=== PATIENT | female | born 1965 | race Caucasian/White ===

== ENCOUNTER 2018-03-04 18:31 | Inpatient (IN) | payer MEDICAID, OTHER ==
[~2018-03-04] VITALS: Ht 162.6 cm; Wt 54.7 kg
[~2018-03-04 18:31] MED LIST: etomidate 2mg/ml inj. ONE; rocuronium 10mg/ml inj IV ONE
[2018-03-04] MEDS ORDERED: ipratropium/albuterol 3ml nebule NEB ONE (18:40)
[2018-03-04] MEDS ORDERED: normal saline 1000ML IV soln IVB ONE (18:40)
[2018-03-04] MEDS ORDERED: methylPREDNISolone sod succ 125mg/2ml vial IV ONE (18:40)
[2018-03-04] MEDS ORDERED: levoFLOXACIN-Levaquin 750MG/D5 150 ML IV ONE (18:55)
[2018-03-04] MEDS ORDERED: normal saline 1000ML IV soln IV ONE (18:55)
[2018-03-04 18:57] LABS: BASOPHILS % (AUTO) 0.3 % (0-1); EOSINOPHILS # (AUTO) 0.3 X10'3 (0-0.9); EOSINOPHILS % (AUTO) 2.3 % (0-6); HEMATOCRIT 43.9 % (35.0-45.0); HEMOGLOBIN 14.2 g/dl (12.0-16.0); LYMPHOCYTES % (AUTO) 13.6 % (21-51); MEAN CORPUSCULAR HEMOGLOBIN 31.5 PG (27.0-31.0); MEAN CORPUSCULAR HGB CONC 32.4 % (33.0-36.5); MEAN CORPUSCULAR VOLUME 97.2 FL (78-98); MEAN PLATELET VOLUME 8.2 FL (7.4-10.4); MONOCYTES % (AUTO) 6.6 % (2-12); NEUTROPHILS # (AUTO) 11.5 X10'3 (1.8-7.7); NEUTROPHILS % (AUTO) 77.2 % (42-75); PLATELET COUNT 392 X10'3 (140-440); RED BLOOD COUNT 4.52 X10'6 (4.20-5.60); RED CELL DISTRIBUTION WIDTH 14.4 % (11.5-14.5); WHITE BLOOD COUNT 14.8 X10'3 (4.5-11.0)
[2018-03-04 19:13] LABS: PARTIAL THROMBOPLASTIN TIME 23 SECONDS (22-32); PROTHROMBIN TIME 9.9 SECONDS (9.0-12.0)
[2018-03-04 19:14] LABS: ALANINE AMINOTRANSFERASE 61 U/L (12-78); ALBUMIN 3.9 G/DL (3.4-5.0); ALBUMIN/GLOBULIN RATIO 1.1 (1.1-1.5); ALKALINE PHOSPHATASE 100 IU/L (46-116); ANION GAP 14 (8-16); ASPARTATE AMINO TRANSFERASE 35 U/L (10-37); BILIRUBIN,TOTAL 0.4 MG/DL (0.1-1.0); BLOOD UREA NITROGEN 34 MG/DL (7-18); BUN/CREATININE RATIO 33.3 (6.6-38.0); CALCIUM 8.5 MG/DL (8.5-10.1); CHLORIDE 104 MMOL/L (99-107); CREATININE 1.02 MG/DL (0.40-0.90); GLUCOSE 257 MG/DL (70-104); POTASSIUM 3.9 MMOL/L (3.5-5.1); SODIUM 142 MMOL/L (135-145); TOTAL CARBON DIOXIDE 24.5 MMOL/L (24-32); TOTAL PROTEIN 7.6 G/DL (6.4-8.2); eGFR 57 ML/MIN
[2018-03-04 19:16] LABS: ABG BASE EXCESS -5.9 mmol/L (-2.0-3.0); ABG HCO3 22.2 mmol/L (22.0-26.0); ABG OXYGEN SATURATION 96.2 % (95-98); ABG PCO2 (T) 52.5 mmHg (32.0-45.0); ABG PH (T) 7.241 (7.350-7.450); ABG PO2 (T) 100.6 mmHg (83-108); ALLEN'S TEST Positive; FCOHb 0.7 % (0.5-1.5); FLOW 8 L/min; FO2Hb 95.5 % (94-100); PATIENT TEMPERATURE 36.3; TOTAL HEMOGLOBIN 14.4 G/dl (12.0-16.0)
[2018-03-04 19:21] LABS: MAGNESIUM 2.2 MG/DL (1.5-2.4)
[2018-03-04] MEDS ORDERED: iohexol 350MG/ML 100ml bottle IV ONE (19:21)
[2018-03-04] MEDS ORDERED: FENTANYL-0.9 % NACL/PF 100 ML IV PRN (19:45)
[2018-03-04] MEDS: midazolam 100mg in NS 100ml 100 ML IV PRN ×2 (20:01→20:52)
[2018-03-04] MEDS ORDERED: midazolam 100mg in NS 100ml 100 ML IV PRN (20:15)
[2018-03-04 20:50] LABS: CLARITY,URINE SLIGHTLY CLOUDY (Clear); COLOR,URINE YELLOW (Yellow); GLUCOSE, URINE NEGATIVE (Neg); KETONES,URINE NEGATIVE (Neg); LEUKOCYTE ESTERASE ,URINE NEGATIVE (Neg); NITRITES, URINE NEGATIVE (Neg); OCCULT BLOOD,URINE NEGATIVE (Neg); PROTEIN,URINE 30 mg/dl (Neg); UROBILINOGEN,URINE 0.2 E.U/dL (0.2-1.0)
[2018-03-04 20:58] LABS: URINE AMPHETAMINE SCREEN POSITIVE (Neg); URINE BARBITUATE SCREEN NEGATIVE (Neg); URINE BENZODIAZEPINES SCREEN NEGATIVE (Neg); URINE CANNABINOID SCREEN POSITIVE (Neg); URINE COCAINE SCREEN NEGATIVE (Neg); URINE METHADONE SCREEN NEGATIVE (Neg); URINE OPIATE SCREEN POSITIVE (Neg); URINE PHENCYCLIDINE SCREEN NEGATIVE (Neg)
[2018-03-04 20:59] LABS: UA COLLECTION TYPE FOLEY CATH
[2018-03-04 21:01] LABS: ABG HCO3 21.9 mmol/L (22.0-26.0); ABG OXYGEN SATURATION 94.3 % (95-98); ABG PCO2 (T) 64.3 mmHg (32.0-45.0); ABG PH (T) 7.151 (7.350-7.450); ABG PO2 (T) 92.4 mmHg (83-108); ALLEN'S TEST Positive; FCOHb 1.1 % (0.5-1.5); FMetHb 0.2 % (0.3-1.12); FO2Hb 93.1 % (94-100); MINUTE VOLUME 11 L/min; PEEP 5 cm H2O; RESPIRATORY RATE 20 b/min; RESPIRATORY RATE (OBSERVED) 20 b/min; TIDAL VOLUME 450 mL; TOTAL HEMOGLOBIN 14.9 G/dl (12.0-16.0)
[2018-03-04 21:08] LABS: COARSE GRANULAR CAST 0-3 /LPF (NEGATIVE); FINE GRANULAR CAST 0-3 /LPF (NEGATIVE); SQUAMOUS EPITHELIAL CELL,UR MODERATE /LPF (FEW)
[2018-03-04] MEDS: normal saline 1000ml 1,000 ML IV SCH (21:08)
[2018-03-04 21:09] LABS: AMORPHOUS URATES 2+; BACTERIA,URINE 1+ /HPF (Neg); RBC,URINE 0-2 /HPF (0-2)
[2018-03-04] MEDS ORDERED: acetaminophen 325mg tablet PO PRN ×2 (21:10)
[2018-03-04] MEDS ORDERED: dextrose ORAL solution 15 GM/59 ML bottle PO PRN ×2 (21:10)
[2018-03-04] MEDS ORDERED: labetalol 20mg/4ml (5mg/ml) syringe IV ONE (21:10)
[2018-03-04] MEDS ORDERED: labetalol 20mg/4ml (5mg/ml) syringe IV PRN (21:10)
[2018-03-04] MEDS ORDERED: acetaminophen 650mg rectal suppository RC PRN (21:10)
[2018-03-04] MEDS ORDERED: ondansetron/PF 4mg/2ml inj IV PRN (21:10)
[2018-03-04] MEDS ORDERED: insulin Lispro (HumaLOG) vial - multi-dose SQ SCH (21:10)
[2018-03-04] MEDS ORDERED: potassium Cl 40MEQ/NS 500ml 500 ML IV PRN ×2 (21:10)
[2018-03-04] MEDS ORDERED: CefTRIAXone/D5W-Rocephin 1gm 50 ML IV ONE (21:10)
[2018-03-04] MEDS ORDERED: MESSAGE TO PHARMACY PO ONE (21:10)
[2018-03-04] MEDS ORDERED: dextrose 50%-water 50ml dispensing syringe IV PRN ×2 (21:10)
[2018-03-04] MEDS ORDERED: glucagon, human recombinant 1mg kit SUBCUT PRN (21:10)
[2018-03-04] MEDS ORDERED: UNABLE TO OBTAIN (21:23)
[2018-03-04] MEDS: pantoprazole 40 MG vial IV SCH (21:57)
[2018-03-04 23:00] VITALS: BP 119/71
[2018-03-04 23:00] LABS: ABG BASE EXCESS -4.9 mmol/L (-2.0-3.0); ABG HCO3 22.4 mmol/L (22.0-26.0); ABG OXYGEN SATURATION 94.6 % (95-98); ABG PCO2 (T) 49.4 mmHg (32.0-45.0); ABG PH (T) 7.272 (7.350-7.450); ABG PO2 (T) 80.2 mmHg (83-108); ALLEN'S TEST Positive; FCOHb 0.9 % (0.5-1.5); FMetHb 0.1 % (0.3-1.12); FO2Hb 93.7 % (94-100); MINUTE VOLUME 12 L/min; PATIENT TEMPERATURE 36.6; PEEP 5 cm H2O; RESPIRATORY RATE 24 b/min; RESPIRATORY RATE (OBSERVED) 24 b/min; TIDAL VOLUME 450 mL; TOTAL HEMOGLOBIN 13.8 G/dl (12.0-16.0)
[2018-03-04] MEDS: ipratropium/albuterol 3ml nebule NEB SCH (23:34)
[2018-03-05] VITALS (24 sets, daily range): BP systolic 96–140; BP diastolic 53–81
[2018-03-05 01:29] LABS: PARTIAL THROMBOPLASTIN TIME 22 SECONDS (22-32); PROTHROMBIN TIME 10.3 SECONDS (9.0-12.0)
[2018-03-05 01:31] LABS: ALANINE AMINOTRANSFERASE 51 U/L (12-78); ALKALINE PHOSPHATASE 77 IU/L (46-116); ANION GAP 14 (8-16); ASPARTATE AMINO TRANSFERASE 25 U/L (10-37); BILIRUBIN,TOTAL 0.3 MG/DL (0.1-1.0); BLOOD UREA NITROGEN 32 MG/DL (7-18); BUN/CREATININE RATIO 47.1 (6.6-38.0); CALCIUM 7.7 MG/DL (8.5-10.1); CHLORIDE 108 MMOL/L (99-107); CREATININE 0.68 MG/DL (0.40-0.90); GLUCOSE 117 MG/DL (70-104); SODIUM 143 MMOL/L (135-145); TOTAL CARBON DIOXIDE 21.5 MMOL/L (24-32); TOTAL PROTEIN 6.1 G/DL (6.4-8.2); eGFR > 90 ML/MIN
[2018-03-05 01:34] LABS: MAGNESIUM 1.9 MG/DL (1.5-2.4); PHOSPHORUS 3.2 MG/DL (2.3-4.5)
[2018-03-05 02:16] LABS: BASOPHILS % (AUTO) 0.3 % (0-1); EOSINOPHILS % (AUTO) 0 % (0-6); HEMATOCRIT 40.6 % (35.0-45.0); HEMOGLOBIN 13.3 g/dl (12.0-16.0); LYMPHOCYTES # (AUTO) 0.3 X10'3 (1.1-4.8); LYMPHOCYTES % (AUTO) 2.6 % (21-51); MEAN CORPUSCULAR HEMOGLOBIN 31.6 PG (27.0-31.0); MEAN CORPUSCULAR HGB CONC 32.7 % (33.0-36.5); MEAN CORPUSCULAR VOLUME 96.5 FL (78-98); MEAN PLATELET VOLUME 9.1 FL (7.4-10.4); MONOCYTES # (AUTO) 0.1 X10'3 (0-0.9); MONOCYTES % (AUTO) 1.4 % (2-12); NEUTROPHILS # (AUTO) 10.5 X10'3 (1.8-7.7); NEUTROPHILS % (AUTO) 95.7 % (42-75); PLATELET COUNT 265 X10'3 (140-440); RED BLOOD COUNT 4.21 X10'6 (4.20-5.60); RED CELL DISTRIBUTION WIDTH 14.4 % (11.5-14.5)
[2018-03-05] MEDS: methylPREDNISolone sod succ/PF 40mg inj. IV SCH ×4 (02:38→20:49)
[2018-03-05] MEDS: ipratropium/albuterol 3ml nebule NEB SCH ×6 (03:34→22:50)
[2018-03-05 04:15] LABS: ABG BASE EXCESS -3.9 mmol/L (-2.0-3.0); ABG HCO3 21.2 mmol/L (22.0-26.0); ABG OXYGEN SATURATION 95.8 % (95-98); ABG PO2 (T) 81.6 mmHg (83-108); ALLEN'S TEST Positive; FCOHb 0.4 % (0.5-1.5); FMetHb 0.1 % (0.3-1.12); FO2Hb 95.3 % (94-100); MINUTE VOLUME 12 L/min; PEEP 5 cm H2O; RESPIRATORY RATE 24 b/min; RESPIRATORY RATE (OBSERVED) 24 b/min; TIDAL VOLUME 450 mL; TOTAL HEMOGLOBIN 13.7 G/dl (12.0-16.0)
[2018-03-05] MEDS ORDERED: levoFLOXACIN-Levaquin 750MG/D5 150 ML IV SCH (08:00)
[2018-03-05] MEDS: K, MAG and/or Phos replacement - Verify level? MC SCH (08:00)
[2018-03-05] MEDS: docusate sodium 100mg/10ml UD cup PO SCH ×2 (08:41→20:49)
[2018-03-05] MEDS: nicotine 14mg patch - 24hr TD SCH (08:46)
[2018-03-05] MEDS: pantoprazole 40 MG vial IV SCH (08:46)
[2018-03-05] MEDS: heparin, porcine 5000 units/ml vial SQ SCH ×2 (09:15→20:50)
[2018-03-05] MEDS: midazolam 100mg in NS 100ml 100 ML IV PRN (09:50)
[2018-03-05] MEDS: normal saline 1000ml 1,000 ML IV SCH (10:28)
[2018-03-05] MEDS ORDERED: NITR100C11 PO (11:58)
[2018-03-05] MEDS ORDERED: LISI-604 PO (11:58)
[2018-03-05] MEDS ORDERED: AMLO5TAB PO (11:58)
[2018-03-05] MEDS ORDERED: CARV-50 PO (11:58)
[2018-03-05] MEDS ORDERED: ASPI-611 PO (11:59)
[2018-03-05] MEDS: AZITHROMYCIN 500 MG in NS 250ml IV.SOLN IV SCH (12:52)
[2018-03-05] MEDS: FENTANYL-0.9 % NACL/PF 100 ML IV PRN ×2 (13:01→21:22)
[2018-03-05] MEDS ORDERED: insulin regular, human vial - multi-dose SQ SCH (14:51)
[2018-03-05] MEDS: CefTRIAXone/D5W-Rocephin 1gm 50 ML IV SCH (20:45)
[2018-03-05] MEDS: lactobacillus rhamnosus 10,000 MMU CELLS/CAPSULE PO SCH (20:49)
[2018-03-05] MEDS: insulin glargine (Lantus) pen - multi-dose SQ SCH (21:00)
[2018-03-06] VITALS (24 sets, daily range): BP systolic 59–167; BP diastolic 49–97
[2018-03-06] MEDS: methylPREDNISolone sod succ/PF 40mg inj. IV SCH ×4 (02:28→19:45)
[2018-03-06] MEDS: mineral oil/petrolatum ophthal oint EACHEYE SCH ×4 (02:28→19:45)
[2018-03-06] MEDS: normal saline 1000ml 1,000 ML IV SCH (02:48)
[2018-03-06] MEDS: ipratropium/albuterol 3ml nebule NEB SCH ×6 (03:18→23:16)
[2018-03-06 03:21] LABS: ABG BASE EXCESS -2.4 mmol/L (-2.0-3.0); ABG HCO3 22.5 mmol/L (22.0-26.0); ABG OXYGEN SATURATION 95.5 % (95-98); ABG PCO2 (T) 39.3 mmHg (32.0-45.0); ABG PH (T) 7.376 (7.350-7.450); ABG PO2 (T) 80.1 mmHg (83-108); ALLEN'S TEST Positive; FCOHb 0.2 % (0.5-1.5); FMetHb 0.2 % (0.3-1.12); FO2Hb 95.1 % (94-100); MINUTE VOLUME 10 L/min; PATIENT TEMPERATURE 36.8; PEEP 5 cm H2O; RESPIRATORY RATE 24 b/min; RESPIRATORY RATE (OBSERVED) 24 b/min; TIDAL VOLUME 375 mL; TOTAL HEMOGLOBIN 12.1 G/dl (12.0-16.0)
[2018-03-06] MEDS: midazolam 100mg in NS 100ml 100 ML IV PRN (03:24)
[2018-03-06 05:00] LABS: BASOPHILS % (AUTO) 0 % (0-1); EOSINOPHILS # (AUTO) 0.1 X10'3 (0-0.9); EOSINOPHILS % (AUTO) 1.3 % (0-6); HEMATOCRIT 35.4 % (35.0-45.0); HEMOGLOBIN 11.4 g/dl (12.0-16.0); LYMPHOCYTES # (AUTO) 0.3 X10'3 (1.1-4.8); LYMPHOCYTES % (AUTO) 2.6 % (21-51); MEAN CORPUSCULAR HEMOGLOBIN 31.3 PG (27.0-31.0); MEAN CORPUSCULAR HGB CONC 32.3 % (33.0-36.5); MEAN CORPUSCULAR VOLUME 96.9 FL (78-98); MEAN PLATELET VOLUME 8.9 FL (7.4-10.4); MONOCYTES # (AUTO) 0.2 X10'3 (0-0.9); MONOCYTES % (AUTO) 2.2 % (2-12); NEUTROPHILS # (AUTO) 10.5 X10'3 (1.8-7.7); NEUTROPHILS % (AUTO) 93.9 % (42-75); PLATELET COUNT 256 X10'3 (140-440); RED BLOOD COUNT 3.65 X10'6 (4.20-5.60); RED CELL DISTRIBUTION WIDTH 14.6 % (11.5-14.5); WHITE BLOOD COUNT 11.2 X10'3 (4.5-11.0)
[2018-03-06 05:14] LABS: PARTIAL THROMBOPLASTIN TIME 24 SECONDS (22-32); PROTHROMBIN TIME 10.2 SECONDS (9.0-12.0)
[2018-03-06 05:15] LABS: ALANINE AMINOTRANSFERASE 39 U/L (12-78); ALBUMIN 2.6 G/DL (3.4-5.0); ALBUMIN/GLOBULIN RATIO 0.9 (1.1-1.5); ALKALINE PHOSPHATASE 57 IU/L (46-116); ANION GAP 8 (8-16); ASPARTATE AMINO TRANSFERASE 13 U/L (10-37); BILIRUBIN,TOTAL 0.3 MG/DL (0.1-1.0); BLOOD UREA NITROGEN 28 MG/DL (7-18); BUN/CREATININE RATIO 38.4 (6.6-38.0); CALCIUM 8.4 MG/DL (8.5-10.1); CHLORIDE 109 MMOL/L (99-107); CREATININE 0.73 MG/DL (0.40-0.90); GLUCOSE 168 MG/DL (70-104); PHOSPHORUS 2.6 MG/DL (2.3-4.5); POTASSIUM 4.2 MMOL/L (3.5-5.1); SODIUM 142 MMOL/L (135-145); TOTAL CARBON DIOXIDE 24.9 MMOL/L (24-32); TOTAL PROTEIN 5.4 G/DL (6.4-8.2); eGFR 84 ML/MIN
[2018-03-06] MEDS: FENTANYL-0.9 % NACL/PF 100 ML IV PRN ×3 (05:49→23:37)
[2018-03-06] MEDS: CefTRIAXone/D5W-Rocephin 1gm 50 ML IV SCH (07:13)
[2018-03-06] MEDS: pantoprazole 40 MG vial IV SCH (07:14)
[2018-03-06] MEDS ORDERED: azithromycin/NS 500mg/250ml 250 ML IV SCH (08:00)
[2018-03-06] MEDS: K, MAG and/or Phos replacement - Verify level? MC SCH (08:00)
[2018-03-06] MEDS: docusate sodium 100mg/10ml UD cup PO SCH ×2 (08:19→19:44)
[2018-03-06] MEDS: nicotine 14mg patch - 24hr TD SCH (08:19)
[2018-03-06] MEDS: lactobacillus rhamnosus 10,000 MMU CELLS/CAPSULE PO SCH ×2 (08:19→19:44)
[2018-03-06] MEDS: AZITHROMYCIN 500 MG in NS 250ml IV.SOLN IV SCH (08:19)
[2018-03-06] MEDS: heparin, porcine 5000 units/ml vial SQ SCH ×2 (08:20→19:45)
[2018-03-06] MEDS: furosemide 40mg/4ml inj IV SCH ×2 (09:46→19:45)
[2018-03-06] MEDS: dexmedetomidin/NS 400mcg/100ml 100 ML IV SCH ×2 (09:54→20:35)
[2018-03-06] MEDS: carVEDilol 12.5mg tablet PO SCH (13:13)
[2018-03-06] MEDS ORDERED: LORazepam 2 mg/ml vial IV PRN (14:45)
[2018-03-06] MEDS ORDERED: diphenhydrAMINE 50 mg/ml inj IV PRN (19:15)
[2018-03-06] MEDS: insulin glargine (Lantus) pen - multi-dose SQ SCH (21:00)
[2018-03-06] MEDS ORDERED: lactulose 20gm/30ml cup PO PRN (21:10)
[2018-03-07] VITALS (22 sets, daily range): BP systolic 122–178; BP diastolic 55–99
[2018-03-07] MEDS: mineral oil/petrolatum ophthal oint EACHEYE SCH ×5 (02:00→23:03)
[2018-03-07] MEDS: methylPREDNISolone sod succ/PF 40mg inj. IV SCH ×2 (02:00→08:40)
[2018-03-07] MEDS: ipratropium/albuterol 3ml nebule NEB SCH ×6 (02:56→23:44)
[2018-03-07 03:40] LABS: ABG BASE EXCESS 2.8 mmol/L (-2.0-3.0); ABG HCO3 28.1 mmol/L (22.0-26.0); ABG OXYGEN SATURATION 94.6 % (95-98); ABG PCO2 (T) 46.3 mmHg (32.0-45.0); ABG PH (T) 7.402 (7.350-7.450); ABG PO2 (T) 76.4 mmHg (83-108); ALLEN'S TEST Positive; FCOHb 0.2 % (0.5-1.5); FMetHb 0.1 % (0.3-1.12); FO2Hb 94.3 % (94-100); MINUTE VOLUME 8 L/min; PATIENT TEMPERATURE 37.2; PEEP 5 cm H2O; RESPIRATORY RATE 18 b/min; RESPIRATORY RATE (OBSERVED) 18 b/min; TIDAL VOLUME 375 mL; TOTAL HEMOGLOBIN 12.8 G/dl (12.0-16.0)
[2018-03-07 06:05] LABS: BASOPHILS % (AUTO) 0.2 % (0-1); EOSINOPHILS % (AUTO) 0.3 % (0-6); HEMATOCRIT 37.8 % (35.0-45.0); HEMOGLOBIN 12.2 g/dl (12.0-16.0); LYMPHOCYTES # (AUTO) 0.2 X10'3 (1.1-4.8); LYMPHOCYTES % (AUTO) 1.9 % (21-51); MEAN CORPUSCULAR HEMOGLOBIN 31.4 PG (27.0-31.0); MEAN CORPUSCULAR HGB CONC 32.3 % (33.0-36.5); MEAN CORPUSCULAR VOLUME 97.2 FL (78-98); MEAN PLATELET VOLUME 9.5 FL (7.4-10.4); MONOCYTES # (AUTO) 0.3 X10'3 (0-0.9); MONOCYTES % (AUTO) 2.5 % (2-12); NEUTROPHILS # (AUTO) 12.1 X10'3 (1.8-7.7); NEUTROPHILS % (AUTO) 95.1 % (42-75); PLATELET COUNT 258 X10'3 (140-440); RED BLOOD COUNT 3.89 X10'6 (4.20-5.60); RED CELL DISTRIBUTION WIDTH 14.5 % (11.5-14.5); WHITE BLOOD COUNT 12.7 X10'3 (4.5-11.0)
[2018-03-07 06:12] LABS: ALANINE AMINOTRANSFERASE 37 U/L (12-78); ALKALINE PHOSPHATASE 54 IU/L (46-116); ANION GAP 6 (8-16); ASPARTATE AMINO TRANSFERASE 9 U/L (10-37); BILIRUBIN,TOTAL 0.2 MG/DL (0.1-1.0); BLOOD UREA NITROGEN 37 MG/DL (7-18); BUN/CREATININE RATIO 42.5 (6.6-38.0); CALCIUM 8.7 MG/DL (8.5-10.1); CHLORIDE 108 MMOL/L (99-107); CREATININE 0.87 MG/DL (0.40-0.90); GLUCOSE 193 MG/DL (70-104); MAGNESIUM 2.3 MG/DL (1.5-2.4); PHOSPHORUS 3.8 MG/DL (2.3-4.5); POTASSIUM 3.9 MMOL/L (3.5-5.1); SODIUM 145 MMOL/L (135-145); TOTAL CARBON DIOXIDE 30.7 MMOL/L (24-32); eGFR 68 ML/MIN
[2018-03-07 06:32] LABS: PARTIAL THROMBOPLASTIN TIME 23 SECONDS (22-32); PROTHROMBIN TIME 9.9 SECONDS (9.0-12.0)
[2018-03-07] MEDS ORDERED: racepinephrine 11.25mg/0.5ml nebule ONE (07:31)
[2018-03-07] MEDS ORDERED: racepinephrine 11.25mg/0.5ml nebule IH PRN (07:35)
[2018-03-07] MEDS: K, MAG and/or Phos replacement - Verify level? MC SCH (08:00)
[2018-03-07] MEDS: furosemide 40mg/4ml inj IV SCH (08:40)
[2018-03-07] MEDS: lactobacillus rhamnosus 10,000 MMU CELLS/CAPSULE PO SCH ×2 (08:40→19:20)
[2018-03-07] MEDS: docusate sodium 100mg/10ml UD cup PO SCH ×2 (08:40→19:20)
[2018-03-07] MEDS: pantoprazole 40 MG vial IV SCH (08:40)
[2018-03-07] MEDS: AZITHROMYCIN 500 MG in NS 250ml IV.SOLN IV SCH (08:41)
[2018-03-07] MEDS: CefTRIAXone/D5W-Rocephin 1gm 50 ML IV SCH (08:42)
[2018-03-07] MEDS: nicotine 14mg patch - 24hr TD SCH ×2 (08:42→09:00)
[2018-03-07] MEDS: amLODIPine 5mg tablet PO SCH (08:44)
[2018-03-07] MEDS: carVEDilol 12.5mg tablet PO SCH (08:44)
[2018-03-07] MEDS: lisinopril 5mg tablet PO SCH (08:44)
[2018-03-07] MEDS: heparin, porcine 5000 units/ml vial SQ SCH ×2 (08:45→19:20)
[2018-03-07] MEDS: insulin glargine (Lantus) pen - multi-dose SQ SCH (18:42)
[2018-03-08] VITALS (14 sets, daily range): BP systolic 133–186; BP diastolic 68–96
[2018-03-08] MEDS: normal saline 1000ml 1,000 ML IV SCH (02:48)
[2018-03-08] MEDS: ipratropium/albuterol 3ml nebule NEB SCH ×3 (03:53→11:00)
[2018-03-08] MEDS: hydrALAZINE 20mg/ml inj. IV PRN (04:56)
[2018-03-08 07:06] LABS: BASOPHILS % (AUTO) 0.2 % (0-1); EOSINOPHILS % (AUTO) 0.2 % (0-6); HEMATOCRIT 37.6 % (35.0-45.0); HEMOGLOBIN 12.3 g/dl (12.0-16.0); LYMPHOCYTES # (AUTO) 0.9 X10'3 (1.1-4.8); LYMPHOCYTES % (AUTO) 8.8 % (21-51); MEAN CORPUSCULAR HEMOGLOBIN 31.6 PG (27.0-31.0); MEAN CORPUSCULAR HGB CONC 32.6 % (33.0-36.5); MEAN CORPUSCULAR VOLUME 96.8 FL (78-98); MEAN PLATELET VOLUME 9.9 FL (7.4-10.4); MONOCYTES # (AUTO) 0.7 X10'3 (0-0.9); MONOCYTES % (AUTO) 6.8 % (2-12); NEUTROPHILS # (AUTO) 8.8 X10'3 (1.8-7.7); PLATELET COUNT 259 X10'3 (140-440); RED BLOOD COUNT 3.89 X10'6 (4.20-5.60); RED CELL DISTRIBUTION WIDTH 14.2 % (11.5-14.5); WHITE BLOOD COUNT 10.4 X10'3 (4.5-11.0)
[2018-03-08 07:08] LABS: PARTIAL THROMBOPLASTIN TIME 24 SECONDS (22-32)
[2018-03-08 07:31] LABS: ALANINE AMINOTRANSFERASE 38 U/L (12-78); ALKALINE PHOSPHATASE 54 IU/L (46-116); ANION GAP 9 (8-16); ASPARTATE AMINO TRANSFERASE 15 U/L (10-37); BILIRUBIN,TOTAL 0.4 MG/DL (0.1-1.0); BLOOD UREA NITROGEN 37 MG/DL (7-18); BUN/CREATININE RATIO 41.6 (6.6-38.0); CALCIUM 8.8 MG/DL (8.5-10.1); CHLORIDE 105 MMOL/L (99-107); CREATININE 0.89 MG/DL (0.40-0.90); GLUCOSE 98 MG/DL (70-104); MAGNESIUM 2.3 MG/DL (1.5-2.4); PHOSPHORUS 3.3 MG/DL (2.3-4.5); POTASSIUM 3.5 MMOL/L (3.5-5.1); PREALBUMIN 34.9 MG/DL (19-36); SODIUM 145 MMOL/L (135-145); TOTAL CARBON DIOXIDE 31.4 MMOL/L (24-32); eGFR 67 ML/MIN
[2018-03-08] MEDS: furosemide 20MG tablet PO SCH (07:46)
[2018-03-08] MEDS: carVEDilol 12.5mg tablet PO SCH (07:46)
[2018-03-08] MEDS: prednisone 10mg tablet PO SCH (07:47)
[2018-03-08] MEDS: amLODIPine 5mg tablet PO SCH (07:47)
[2018-03-08] MEDS: pantoprazole 40 MG vial IV SCH (07:48)
[2018-03-08] MEDS: docusate sodium 100mg/10ml UD cup PO SCH ×2 (07:48→19:26)
[2018-03-08] MEDS: lactobacillus rhamnosus 10,000 MMU CELLS/CAPSULE PO SCH ×2 (07:48→19:26)
[2018-03-08] MEDS: lisinopril 5mg tablet PO SCH (07:48)
[2018-03-08] MEDS: heparin, porcine 5000 units/ml vial SQ SCH ×2 (07:52→19:26)
[2018-03-08] MEDS: CefTRIAXone/D5W-Rocephin 1gm 50 ML IV SCH (07:56)
[2018-03-08] MEDS: K, MAG and/or Phos replacement - Verify level? MC SCH (08:00)
[2018-03-08] MEDS: mineral oil/petrolatum ophthal oint EACHEYE SCH (08:00)
[2018-03-08] MEDS: AZITHROMYCIN 500 MG in NS 250ml IV.SOLN IV SCH (08:45)
[2018-03-08] MEDS: insulin glargine (Lantus) pen - multi-dose SQ SCH (21:00)
[2018-03-09] VITALS: BP 162/78
[2018-03-09 05:32] LABS: BASOPHILS % (AUTO) 0.3 % (0-1); EOSINOPHILS # (AUTO) 0.1 X10'3 (0-0.9); EOSINOPHILS % (AUTO) 1.2 % (0-6); HEMATOCRIT 43.4 % (35.0-45.0); HEMOGLOBIN 14.4 g/dl (12.0-16.0); LYMPHOCYTES # (AUTO) 1.1 X10'3 (1.1-4.8); LYMPHOCYTES % (AUTO) 11.4 % (21-51); MEAN CORPUSCULAR HEMOGLOBIN 31.6 PG (27.0-31.0); MEAN CORPUSCULAR HGB CONC 33.1 % (33.0-36.5); MEAN CORPUSCULAR VOLUME 95.4 FL (78-98); MEAN PLATELET VOLUME 9.8 FL (7.4-10.4); MONOCYTES # (AUTO) 0.7 X10'3 (0-0.9); MONOCYTES % (AUTO) 7.3 % (2-12); NEUTROPHILS # (AUTO) 7.9 X10'3 (1.8-7.7); NEUTROPHILS % (AUTO) 79.8 % (42-75); PLATELET COUNT 271 X10'3 (140-440); RED BLOOD COUNT 4.55 X10'6 (4.20-5.60); RED CELL DISTRIBUTION WIDTH 14.2 % (11.5-14.5); WHITE BLOOD COUNT 9.9 X10'3 (4.5-11.0)
[2018-03-09 05:50] LABS: PARTIAL THROMBOPLASTIN TIME 26 SECONDS (22-32)
[2018-03-09 05:51] LABS: ALANINE AMINOTRANSFERASE 38 U/L (12-78); ALBUMIN 3.2 G/DL (3.4-5.0); ALBUMIN/GLOBULIN RATIO 0.9 (1.1-1.5); ALKALINE PHOSPHATASE 66 IU/L (46-116); ANION GAP 7 (8-16); ASPARTATE AMINO TRANSFERASE 12 U/L (10-37); BILIRUBIN,TOTAL 0.5 MG/DL (0.1-1.0); BLOOD UREA NITROGEN 25 MG/DL (7-18); BUN/CREATININE RATIO 30.1 (6.6-38.0); CALCIUM 8.9 MG/DL (8.5-10.1); CHLORIDE 101 MMOL/L (99-107); CREATININE 0.83 MG/DL (0.40-0.90); GLUCOSE 113 MG/DL (70-104); MAGNESIUM 2.1 MG/DL (1.5-2.4); PHOSPHORUS 2.8 MG/DL (2.3-4.5); SODIUM 140 MMOL/L (135-145); TOTAL CARBON DIOXIDE 32.2 MMOL/L (24-32); TOTAL PROTEIN 6.7 G/DL (6.4-8.2); eGFR 72 ML/MIN
[2018-03-09 07:00] VITALS: BP 170/100
[2018-03-09] MEDS: K, MAG and/or Phos replacement - Verify level? MC SCH (08:00)
[2018-03-09] MEDS: lactobacillus rhamnosus 10,000 MMU CELLS/CAPSULE PO SCH ×2 (08:21→21:51)
[2018-03-09] MEDS: pantoprazole 40mg Tablet.DR PO SCH (08:21)
[2018-03-09] MEDS: furosemide 20MG tablet PO SCH (08:21)
[2018-03-09] MEDS: azithromycin 250mg tablet PO SCH (08:22)
[2018-03-09] MEDS: carVEDilol 12.5mg tablet PO SCH (08:23)
[2018-03-09] MEDS: amLODIPine 5mg tablet PO SCH (08:23)
[2018-03-09] MEDS: prednisone 10mg tablet PO SCH (08:23)
[2018-03-09] MEDS: lisinopril 5mg tablet PO SCH (08:24)
[2018-03-09] MEDS: docusate sodium 100mg/10ml UD cup PO SCH ×2 (08:25→20:00)
[2018-03-09] MEDS: heparin, porcine 5000 units/ml vial SQ SCH ×2 (08:25→21:54)
[2018-03-09] MEDS: nicotine 14mg patch - 24hr TD SCH (08:26)
[2018-03-09] MEDS: CefTRIAXone/D5W-Rocephin 1gm 50 ML IV SCH (08:27)
[2018-03-09 11:00] VITALS: BP 119/73
[2018-03-09] MEDS ORDERED: magnesium 4gm in 100ml NS 100 ML IV PRN (12:40)
[2018-03-09] MEDS ORDERED: magnesium 2GM in 50ml NS 50 ML IV PRN (12:40)
[2018-03-09] MEDS ORDERED: magnesium Cl slow-release 64mg tablet PO PRN (12:40)
[2018-03-09] MEDS ORDERED: potassium Cl 20 mEq SR tablet PO PRN (12:40)
[2018-03-09] MEDS ORDERED: potassium Cl 40MEQ/NS 500ml 500 ML IV PRN ×2 (12:40)
[2018-03-09] MEDS: potassium Cl 20 mEq SR tablet PO PRN ×2 (13:04→17:10)
[2018-03-09 19:00] VITALS: BP 131/74
[2018-03-09] MEDS: insulin glargine (Lantus) pen - multi-dose SQ SCH (21:00)
[2018-03-09] MEDS: hydrALAZINE 20mg/ml inj. IV PRN (23:13)
[2018-03-09 23:55] VITALS: BP 181/99
[2018-03-09 23:58] VITALS: BP 149/74
[2018-03-10] MEDS: potassium Cl 20 mEq SR tablet PO PRN
[2018-03-10] MEDS: normal saline 1000ml 1,000 ML IV SCH (02:48)
[2018-03-10 05:30] LABS: ALANINE AMINOTRANSFERASE 29 U/L (12-78); ALBUMIN 3.1 G/DL (3.4-5.0); ALBUMIN/GLOBULIN RATIO 0.9 (1.1-1.5); ALKALINE PHOSPHATASE 65 IU/L (46-116); ANION GAP 7 (8-16); ASPARTATE AMINO TRANSFERASE 8 U/L (10-37); BILIRUBIN,TOTAL 0.2 MG/DL (0.1-1.0); BLOOD UREA NITROGEN 35 MG/DL (7-18); BUN/CREATININE RATIO 47.9 (6.6-38.0); CALCIUM 8.7 MG/DL (8.5-10.1); CHLORIDE 104 MMOL/L (99-107); CREATININE 0.73 MG/DL (0.40-0.90); GLUCOSE 136 MG/DL (70-104); MAGNESIUM 2.2 MG/DL (1.5-2.4); PHOSPHORUS 3.2 MG/DL (2.3-4.5); POTASSIUM 5.2 MMOL/L (3.5-5.1); SODIUM 139 MMOL/L (135-145); TOTAL CARBON DIOXIDE 27.6 MMOL/L (24-32); TOTAL PROTEIN 6.5 G/DL (6.4-8.2); eGFR 84 ML/MIN
[2018-03-10 05:42] LABS: BASOPHILS % (AUTO) 0.2 % (0-1); EOSINOPHILS # (AUTO) 0.2 X10'3 (0-0.9); EOSINOPHILS % (AUTO) 1.2 % (0-6); HEMATOCRIT 46.8 % (35.0-45.0); HEMOGLOBIN 15.6 g/dl (12.0-16.0); LYMPHOCYTES # (AUTO) 0.9 X10'3 (1.1-4.8); LYMPHOCYTES % (AUTO) 7.3 % (21-51); MEAN CORPUSCULAR HEMOGLOBIN 31.7 PG (27.0-31.0); MEAN CORPUSCULAR HGB CONC 33.5 % (33.0-36.5); MEAN CORPUSCULAR VOLUME 94.6 FL (78-98); MEAN PLATELET VOLUME 9.9 FL (7.4-10.4); NEUTROPHILS # (AUTO) 10.4 X10'3 (1.8-7.7); NEUTROPHILS % (AUTO) 83.3 % (42-75); PLATELET COUNT 277 X10'3 (140-440); RED BLOOD COUNT 4.94 X10'6 (4.20-5.60); RED CELL DISTRIBUTION WIDTH 13.6 % (11.5-14.5); WHITE BLOOD COUNT 12.5 X10'3 (4.5-11.0)
[2018-03-10 05:46] LABS: INR 0.9 INR; PARTIAL THROMBOPLASTIN TIME 24 SECONDS (22-32); PROTHROMBIN TIME 9.6 SECONDS (9.0-12.0)
[2018-03-10 07:11] VITALS: BP 169/116
[2018-03-10] MEDS: K, MAG and/or Phos replacement - Verify level? MC SCH (07:18)
[2018-03-10] MEDS: amLODIPine 5mg tablet PO SCH (07:31)
[2018-03-10] MEDS: carVEDilol 12.5mg tablet PO SCH (07:31)
[2018-03-10] MEDS: lisinopril 5mg tablet PO SCH (07:32)
[2018-03-10] MEDS: pantoprazole 40mg Tablet.DR PO SCH (07:32)
[2018-03-10] MEDS: lactobacillus rhamnosus 10,000 MMU CELLS/CAPSULE PO SCH (07:33)
[2018-03-10] MEDS: azithromycin 250mg tablet PO SCH (07:33)
[2018-03-10] MEDS: nicotine 14mg patch - 24hr TD SCH (07:34)
[2018-03-10] MEDS: heparin, porcine 5000 units/ml vial SQ SCH (07:34)
[2018-03-10] MEDS: docusate sodium 100mg/10ml UD cup PO SCH (07:35)
[2018-03-10 07:47] VITALS: BP 139/87
[2018-03-10] MEDS ORDERED: predniSONE 20 mg tablet PO SCH (08:30)
[2018-03-10] MEDS ORDERED: LACT1CAP26 PO (09:22)
[2018-03-10] MEDS ORDERED: AZI25OT PO (09:22)
[2018-03-10] MEDS ORDERED: PANT40TA4 PO (09:22)
[2018-03-10] MEDS ORDERED: NICO-631 TD (09:22)
[2018-03-10] MEDS ORDERED: SIMV20TA5 PO (09:24)
[2018-03-10 11:28] VITALS: BP 142/80
[2018-03-10] MEDS ORDERED: furosemide 40mg tablet PO SCH (20:00)
== END 2018-03-10 12:52 | disposition home or self-care (01) | DRG 720 ==
LOC: ER 18:31 → ED HOLD 21:08 → ICU 2S 23:11 → SUR 3N 03-08 07:18
PROVIDERS: ADMIT Internal Medicine Critical Care Medicine; ATTEND Internal Medicine Critical Care Medicine
PROC: 0BH18EZ Insertion of Endotracheal Airway into Trachea, Via Natural or Artificial Opening Endoscopic (ICD-10-PCS; principal; 2018-03-04)
PROC: 5A1945Z Respiratory Ventilation, 24-96 Consecutive Hours (ICD-10-PCS; 2018-03-04)
PROC: 5A09357 Assistance with Respiratory Ventilation, Less than 24 Consecutive Hours, Continuous Positive Airway Pressure (ICD-10-PCS; 2018-03-04)
PROC: 0D9670Z Drainage of Stomach with Drainage Device, Via Natural or Artificial Opening (ICD-10-PCS; 2018-03-04)
PROC: B3201ZZ Computerized Tomography (CT Scan) of Thoracic Aorta using Low Osmolar Contrast (ICD-10-PCS; 2018-03-04)
PROC: B32S1ZZ Computerized Tomography (CT Scan) of Right Pulmonary Artery using Low Osmolar Contrast (ICD-10-PCS; 2018-03-04)
PROC: B32T1ZZ Computerized Tomography (CT Scan) of Left Pulmonary Artery using Low Osmolar Contrast (ICD-10-PCS; 2018-03-04)
DX: A41.9 Sepsis, unspecified organism (principal); J96.21 Acute and chronic respiratory failure with hypoxia; J18.1 Lobar pneumonia, unspecified organism; J44.0 Chronic obstructive pulmonary disease with (acute) lower respiratory infection; E87.6 Hypokalemia; F17.210 Nicotine dependence, cigarettes, uncomplicated; F12.90 Cannabis use, unspecified, uncomplicated; F15.10 Other stimulant abuse, uncomplicated; I10 Essential (primary) hypertension; J96.22 Acute and chronic respiratory failure with hypercapnia; Z87.440 Personal history of urinary (tract) infections
CPT/HCPCS: 36415; 36600; 71045; 71275; 80053; 80305; 81001; 82803; 82948; 83036; 83605; 83735; 83880; 84100; 84134; 84145; 84484; 85018; 85025; 85610; 85730; 87040; 87070; 87088; 93306; 94002; 94003; 94640; 94660; 94760; 96361; 96365; 96375; 97116; 97162; 97530; 99291; C9113; G0378; J0360; J0456; J0696; J1200; J1644; J1815; J1940; J1956; J2060; J2250; J2405; J2920; J2930; J3490; J7030; J7512; Q9967

== ENCOUNTER 2018-08-08 12:16 | Emergency (ER) | payer MEDICAID ==
[~2018-08-08] VITALS: Ht 162.6 cm; Wt 62.8 kg
[~2018-08-08 12:16] MED LIST changes: +AMLO5TAB PO; +ASPI-611 PO; +AZI25OT PO; +BUTA-281 PO; +CARV-50 PO; +LACT1CAP26 PO; +LISI-604 PO; +NICO-631 TD; +PANT40TA4 PO; -etomidate 2mg/ml inj. ONE; -rocuronium 10mg/ml inj IV ONE
[2018-08-08 12:53] LABS: BASOPHILS # (AUTO) 0.2 X10'3 (0-0.2); BASOPHILS % (AUTO) 1.6 % (0-1); EOSINOPHILS # (AUTO) 0.1 X10'3 (0-0.9); EOSINOPHILS % (AUTO) 0.8 % (0-6); HEMATOCRIT 42.4 % (35.0-45.0); LYMPHOCYTES # (AUTO) 0.7 X10'3 (1.1-4.8); LYMPHOCYTES % (AUTO) 6.3 % (21-51); MEAN CORPUSCULAR HEMOGLOBIN 31.5 PG (27.0-31.0); MEAN CORPUSCULAR VOLUME 95.6 FL (78-98); MEAN PLATELET VOLUME 8.4 FL (7.4-10.4); MONOCYTES # (AUTO) 0.7 X10'3 (0-0.9); NEUTROPHILS # (AUTO) 9.2 X10'3 (1.8-7.7); NEUTROPHILS % (AUTO) 85.3 % (42-75); PLATELET COUNT 254 X10'3 (140-440); RED BLOOD COUNT 4.43 X10'6 (4.20-5.60); RED CELL DISTRIBUTION WIDTH 14.5 % (11.5-14.5); WHITE BLOOD COUNT 10.8 X10'3 (4.5-11.0)
[2018-08-08] MEDS ORDERED: diphenhydrAMINE 25mg capsule PO ONE (13:00)
[2018-08-08] MEDS ORDERED: albuterol 2.5 MG/3 ML nebule CONTNEB PRN ×2 (13:00→15:05)
[2018-08-08] MEDS ORDERED: predniSONE 20 mg tablet PO ONE (13:00)
[2018-08-08 13:07] LABS: ALANINE AMINOTRANSFERASE 49 U/L (12-78); ALBUMIN 2.9 G/DL (3.4-5.0); ALBUMIN/GLOBULIN RATIO 0.8 (1.1-1.5); ALKALINE PHOSPHATASE 86 IU/L (46-116); ANION GAP 8 (8-16); ASPARTATE AMINO TRANSFERASE 21 U/L (10-37); BILIRUBIN,TOTAL 0.5 MG/DL (0.1-1.0); BLOOD UREA NITROGEN 11 MG/DL (7-18); BUN/CREATININE RATIO 13.9 (6.6-38.0); CALCIUM 8.8 MG/DL (8.5-10.1); CHLORIDE 101 MMOL/L (99-107); CREATININE 0.79 MG/DL (0.40-0.90); GLUCOSE 183 MG/DL (70-104); PARTIAL THROMBOPLASTIN TIME 26 SECONDS (22-32); POTASSIUM 3.7 MMOL/L (3.5-5.1); SODIUM 139 MMOL/L (135-145); TOTAL CARBON DIOXIDE 30.2 MMOL/L (24-32); TOTAL PROTEIN 6.5 G/DL (6.4-8.2); eGFR 76 ML/MIN
[2018-08-08] MEDS ORDERED: LORA-512 PO (14:47)
[2018-08-08] MEDS ORDERED: DIPH25CA83 PO (14:47)
[2018-08-08] MEDS ORDERED: PRED20TA PO (14:47)
[2018-08-08] MEDS ORDERED: ALBU6.7H INH (14:47)
[2018-08-08 17:40] VITALS: BP 172/111
== END 2018-08-08 17:43 | disposition home or self-care (01) ==
LOC: ER 12:17
DX: J44.1 Chronic obstructive pulmonary disease with (acute) exacerbation (principal); I10 Essential (primary) hypertension; F17.200 Nicotine dependence, unspecified, uncomplicated; F15.90 Other stimulant use, unspecified, uncomplicated; Z79.82 Long term (current) use of aspirin; Z79.899 Other long term (current) drug therapy; Z59.0 Homelessness
CPT/HCPCS: 36415; 71045; 80053; 84484; 85025; 85610; 85730; 93005; 94644; 94645; 94760; 99285; J7512; Q0163; 94640

== ENCOUNTER 2018-11-02 03:50 | Inpatient (IN) | payer MEDICAID ==
[~2018-11-02] VITALS: Ht 165.1 cm; Wt 59.7 kg
[2018-11-02] VITALS (16 sets, daily range): BP systolic 107–132; BP diastolic 59–78
[~2018-11-02 03:50] MED LIST changes: +ALBU8.5H8 INH; -AMLO5TAB PO; +BECL10.62 INH; -BUTA-281 PO; +CALC-829 PO; +CYCL-145 PO; +FAMO-128 PO; +FURO20TA4 PO; -LACT1CAP26 PO; +LORA10TA45 PO; -NICO-631 TD; -PANT40TA4 PO; +POTA8TAB8 PO
[2018-11-02] MEDS ORDERED: propofol 1000mg/100ml bottle 100 ML IV ONE (03:55)
[2018-11-02] MEDS ORDERED: diazepam inj 5 MG/ML inj. IV ONE (03:55)
[2018-11-02] MEDS ORDERED: rocuronium 10mg/ml inj IV STA (03:56)
[2018-11-02] MEDS ORDERED: etomidate 2mg/ml inj. IV ONE (04:00)
[2018-11-02] MEDS: propofol 1000mg/100ml bottle 100 ML IV PRN ×3 (04:07→21:03)
[2018-11-02] MEDS ORDERED: dexamethasone sod phosphate 10mg/ml inj IV STA ×2 (04:07→04:38)
[2018-11-02] MEDS ORDERED: midazolam 100mg in NS 100ml 100 ML IV ONE ×2 (04:20→05:05)
--- NOTE | 2018-11-02 04:26 | NUR ---
PROPOFOL AND NS INFUSIONS SWITCHED TO CENTRAL LINE AFTER POSITIVE PLACEMENT BY DR Quiñonez WITH BUBBLE STUDY AT BEDSIDE US
--- NOTE | 2018-11-02 04:36 | NUR ---
INCREASED PROPOFOL TO 10MCG/KG/MIN.
[2018-11-02] MEDS ORDERED: levoFLOXACIN-Levaquin 750MG/D5 150 ML IV ONE (04:40)
[2018-11-02] MEDS ORDERED: CefTRIAXone 2gm/D5W 50ml 50 ML IV ONE (04:40)
[2018-11-02] MEDS ORDERED: normal saline 1000ML IV soln IV ONE (04:40)
[2018-11-02] MEDS ORDERED: normal saline 1000ML IV soln IVB ONE ×2 (04:40→04:45)
[2018-11-02] MEDS ORDERED: heparin 25,000 UNIT/250ml bag 250 ML IV SCH (04:53)
[2018-11-02 04:55] LABS: CLARITY,URINE CLEAR (Clear); COLOR,URINE YELLOW (Yellow); GLUCOSE, URINE 250 mg/dl (Neg); KETONES,URINE NEGATIVE (Neg); LEUKOCYTE ESTERASE ,URINE NEGATIVE (Neg); NITRITES, URINE NEGATIVE (Neg); OCCULT BLOOD,URINE SMALL (Neg); PROTEIN,URINE 100 mg/dl (Neg); UROBILINOGEN,URINE 0.2 E.U/dL (0.2-1.0)
[2018-11-02] MEDS ORDERED: heparin 10,000 units/1 ML INJ IV PRN (04:55)
[2018-11-02] MEDS ORDERED: heparin 10,000 units/1 ML INJ IV ONE ×3 (04:55→05:00)
[2018-11-02 05:01] LABS: UA COLLECTION TYPE FOLEY CATH
[2018-11-02] MEDS ORDERED: iohexol 350MG/ML 100ml bottle IV ONE (05:02)
[2018-11-02 05:03] LABS: ALANINE AMINOTRANSFERASE 30 U/L (12-78); ALBUMIN 2.9 G/DL (3.4-5.0); ALKALINE PHOSPHATASE 79 IU/L (46-116); ANION GAP 11 (8-16); ASPARTATE AMINO TRANSFERASE 24 U/L (10-37); BILIRUBIN,TOTAL 0.2 MG/DL (0.1-1.0); BLOOD UREA NITROGEN 7 MG/DL (7-18); BUN/CREATININE RATIO 8.4 (6.6-38.0); CALCIUM 6.7 MG/DL (8.5-10.1); CHLORIDE 112 MMOL/L (99-107); CREATININE 0.83 MG/DL (0.40-0.90); GLUCOSE 253 MG/DL (70-104); MAGNESIUM 1.4 MG/DL (1.5-2.4); POTASSIUM 3.1 MMOL/L (3.5-5.1); SODIUM 145 MMOL/L (135-145); TOTAL CARBON DIOXIDE 22.5 MMOL/L (24-32); TOTAL PROTEIN 5.8 G/DL (6.4-8.2); eGFR 72 ML/MIN
--- NOTE | 2018-11-02 05:04 | NUR ---
PT DESATTED TO 74% ON THE VENT. I SUCTIONED PT AND TOOK HER OFF THE VENT. PAGED RT AND BAGGED PT BACK UP TO 98%. DR Quiñonez NOTIFIED. CT ORDERED
[2018-11-02 05:06] LABS: BACTERIA,URINE FEW /HPF (Neg); FINE GRANULAR CAST 0-3 /LPF (NEGATIVE); RBC,URINE 0-2 /HPF (0-2); SQUAMOUS EPITHELIAL CELL,UR MODERATE /LPF (FEW); WBC,URINE 0-4 /HPF (0-4)
[2018-11-02] MEDS ORDERED: nitroGLYCERIN-Tridil 50MG/D5W 250 ML IV ONE (05:10)
--- NOTE | 2018-11-02 05:12 | NUR ---
Per Gilbert, Lab- disregard all coag values; clots in results. Primary RN and HECTOR Martin informed. Pt currently in CT; will redraw upon return.
--- NOTE | 2018-11-02 05:35 | NUR ---
PER DR. Quiñonez, DO NOT START HEPARIN UNTIL CT RESULTS ARE BACK.
--- NOTE | 2018-11-02 05:44 | NUR ---
NITRO INCREASED TO 10MCG/MIN
[2018-11-02 05:48] LABS: ABSOLUTE RETICS # 50800 /CUMM (23000-93000); BASOPHILS # (AUTO) 0.1 X10'3 (0-0.2); BASOPHILS % (AUTO) 0.6 % (0-1); EOSINOPHILS # (AUTO) 0.1 X10'3 (0-0.9); EOSINOPHILS % (AUTO) 0.4 % (0-6); HEMATOCRIT 43.9 % (35.0-45.0); HEMOGLOBIN 14.1 g/dl (12.0-16.0); LYMPHOCYTES # (AUTO) 1.1 X10'3 (1.1-4.8); LYMPHOCYTES % (AUTO) 5.3 % (21-51); MEAN CORPUSCULAR HEMOGLOBIN 30.8 PG (27.0-31.0); MEAN CORPUSCULAR VOLUME 96.1 FL (78-98); MEAN PLATELET VOLUME 8.3 FL (7.4-10.4); MONOCYTES # (AUTO) 0.7 X10'3 (0-0.9); MONOCYTES % (AUTO) 3.5 % (2-12); NEUTROPHILS # (AUTO) 18.7 X10'3 (1.8-7.7); NEUTROPHILS % (AUTO) 90.2 % (42-75); PLATELET COUNT 265 X10'3 (140-440); RED BLOOD COUNT 4.57 X10'6 (4.20-5.60); RED CELL DISTRIBUTION WIDTH 15.6 % (11.5-14.5); RETICULOCYTE % (AUTO) 1.1 % (0.5-1.5); WHITE BLOOD COUNT 20.8 X10'3 (4.5-11.0)
[2018-11-02 05:51] LABS: ABG BASE EXCESS -11.3 mmol/L (-2.0-3.0); ABG HCO3 19.6 mmol/L (22.0-26.0); ABG OXYGEN SATURATION 89.6 % (95-98); ABG PCO2 (T) 66.3 mmHg (35.0-45.0); ABG PH (T) 7.089 (7.350-7.450); ABG PO2 (T) 75.7 mmHg (83-108); FMetHb 0.2 % (0.3-1.12); FO2Hb 87.6 % (94-100); MINUTE VOLUME 9 L/min; PEEP 5 cm H2O; RESPIRATORY RATE 16 b/min; RESPIRATORY RATE (OBSERVED) 16 b/min; TIDAL VOLUME 500 mL; TOTAL HEMOGLOBIN 15.4 G/dl (12.0-16.0)
--- NOTE | 2018-11-02 05:56 | NUR ---
AWARE OF LABS.
[2018-11-02] MEDS ORDERED: enalaprilat dihydrate 2.5mg/2ml vial IV ONE (06:00)
--- NOTE | 2018-11-02 06:02 | NUR ---
DUE TO VSS, NITRO TITRATED TO 20
--- NOTE | 2018-11-02 06:14 | NUR ---
INCREASED NITRO TO 100MCG/MIN
[2018-11-02] MEDS ORDERED: magnesium 4gm in 100ml NS 100 ML IV PRN (06:20)
[2018-11-02] MEDS ORDERED: ondansetron/PF 4mg/2ml inj IV PRN (06:20)
[2018-11-02] MEDS ORDERED: sodium phosphate inj. 30 MMOL in dextrose 5%-water 250 ML IV PRN (06:20)
[2018-11-02] MEDS ORDERED: sodium phosphate inj. 15 MMOL in dextrose 5%-water 150 ML IV PRN (06:20)
[2018-11-02] MEDS ORDERED: acetaminophen 325mg tablet PO PRN ×2 (06:20)
[2018-11-02] MEDS ORDERED: magnesium hydroxide 30ml (MOM) UD suspension PO PRN (06:20)
[2018-11-02] MEDS ORDERED: magnesium 2GM in 50ml NS 50 ML IV PRN (06:20)
[2018-11-02 06:21] LABS: URINE AMPHETAMINE SCREEN POSITIVE (Neg); URINE BARBITUATE SCREEN NEGATIVE (Neg); URINE BENZODIAZEPINES SCREEN NEGATIVE (Neg); URINE CANNABINOID SCREEN POSITIVE (Neg); URINE COCAINE SCREEN NEGATIVE (Neg); URINE METHADONE SCREEN NEGATIVE (Neg); URINE OPIATE SCREEN NEGATIVE (Neg); URINE PHENCYCLIDINE SCREEN NEGATIVE (Neg)
[2018-11-02] MEDS ORDERED: albuterol 2.5 MG/3 ML nebule NEB PRN (06:40)
[2018-11-02] MEDS: ipratropium/albuterol 3ml nebule NEB SCH ×5 (06:55→23:19)
[2018-11-02] MEDS ORDERED: TIOT4MIS2 INH (07:05)
[2018-11-02 07:08] LABS: D-DIMER 3.47 MG/L FEU (0-0.50); PARTIAL THROMBOPLASTIN TIME 27 SECONDS (22-32)
[2018-11-02 07:25] LABS: ABG BASE EXCESS -7.1 mmol/L (-2.0-3.0); ABG HCO3 22.5 mmol/L (22.0-26.0); ABG OXYGEN SATURATION 96.6 % (95-98); ABG PCO2 (T) 62.4 mmHg (35.0-45.0); ABG PH (T) 7.175 (7.350-7.450); ABG PO2 (T) 107.9 mmHg (83-108); ALLEN'S TEST Positive; FCOHb 1.2 % (0.5-1.5); FMetHb 0.3 % (0.3-1.12); FO2Hb 95.2 % (94-100); MINUTE VOLUME 11 L/min; PEEP 10 cm H2O; RESPIRATORY RATE 20 b/min; RESPIRATORY RATE (OBSERVED) 20 b/min; TIDAL VOLUME 500 mL; TOTAL HEMOGLOBIN 15.8 G/dl (12.0-16.0)
--- NOTE | 2018-11-02 07:45 | NUR ---
received into ICU, transfered to bed with 3 person assist, attached to monitor and ventilator, assessment done.
[2018-11-02] MEDS ORDERED: etomidate 2mg/ml inj. ONE (08:00)
[2018-11-02] MEDS ORDERED: heparin, porcine 5000 units/ml vial SQ SCH (08:00)
[2018-11-02] MEDS ORDERED: pantoprazole 40 MG vial IV SCH (08:00)
[2018-11-02] MEDS ORDERED: docusate sodium 100mg/10ml UD cup PO SCH (08:00)
[2018-11-02] MEDS ORDERED: sod chloride 0.9% 10ml flush syringe IV ONE (08:00)
[2018-11-02] MEDS ORDERED: rocuronium 10mg/ml inj IV ONE (08:00)
[2018-11-02] MEDS: methylPREDNISolone sod succ/PF 40mg inj. IV SCH ×3 (08:00→19:50)
--- NOTE | 2018-11-02 10:00 | NUR ---
restless with moving, and any ADL, settles easily, does not follow direction, on sedation.
[2018-11-02] MEDS ORDERED: methylPREDNISolone sod succ 125mg/2ml vial ONE (11:02)
[2018-11-02] MEDS: potassium Cl 20mEq/100mL bag 100 ML IV PRN ×3 (11:30→15:45)
--- NOTE | 2018-11-02 11:58 | NUR ---
TF Consult: Pt intubated w/ respiratory failure found down positive for meth. OGTF to start today per MD; recs below. Will monitor for TF tolerance. Rec: 1. OGTF per MD using Vital AF at 70ml/hr goal; to provide 1680ml fluid, 1361ml free water, 2016 kcals, and 126g protein. Initiate at 20ml/hr and advance 20ml Q8 to goal as tolerated. 2. water flush 100ml Q4 3. prealbumin Q /, daily wts 4. monitor for TF tolerance 5. routine bowel care 6. upon extubation advance diet per MD to heart healthy Addendum: 11/02/18 at [address] Amended: Links added.
[2018-11-02 12:48] LABS: ETHANOL < 0.010 GM/DL (0.0-0.010)
[2018-11-02] MEDS: furosemide 10 MG/1 ML 10ml inj IV SCH (12:48)
[2018-11-02 14:26] LABS: OCCULT BLOOD STOOL NEGATIVE (Neg)
[2018-11-02] MEDS: ESOMEPRAZOLE 40 MG VIAL IV SCH (14:27)
[2018-11-02 14:55] LABS: ABG BASE EXCESS -1.8 mmol/L (-2.0-3.0); ABG HCO3 22.7 mmol/L (22.0-26.0); ABG OXYGEN SATURATION 99.3 % (95-98); ABG PCO2 (T) 38.2 mmHg (35.0-45.0); ABG PH (T) 7.392 (7.350-7.450); ABG PO2 (T) 229.4 mmHg (83-108); ALLEN'S TEST Positive; FMetHb 0.3 % (0.3-1.12); MINUTE VOLUME 11 L/min; PEEP 10 cm H2O; RESPIRATORY RATE 20 b/min; RESPIRATORY RATE (OBSERVED) 20 b/min; TIDAL VOLUME 500 mL; TOTAL HEMOGLOBIN 15.2 G/dl (12.0-16.0)
[2018-11-02] MEDS ORDERED: acetaminophen 325mg tablet NG PRN ×2 (15:22)
[2018-11-02] MEDS ORDERED: magnesium hydroxide 30ml (MOM) UD suspension NG PRN (15:23)
[2018-11-02] MEDS: FENTANYL-0.9 % NACL/PF 100 ML IV PRN (16:53)
--- NOTE | 2018-11-02 18:35 | NUR ---
Patient in room CICU 2011. I have received report from Savita Marquez RN, and had the opportunity to ask questions and assume patient care.
[2018-11-02 18:53] LABS: POTASSIUM 4.3 MMOL/L (3.5-5.1)
[2018-11-02] MEDS: docusate sodium 100mg/10ml UD cup NG SCH (19:40)
--- NOTE | 2018-11-02 20:00 | NUR ---
PT intubated and sedated, tolerating vent settings well. O2 sat >96%. PT is sedated with Propofol, Fentanyl and Versed, tolerating well. VSS. TF is running @ 20ml/hr, will increase as PT tolerates. Martinez in place draining to gravity. Bed is locked and low. Bilat soft wrist restraints in place and secure. Will continue to monitor.
--- NOTE | 2018-11-02 23:00 | NUR ---
PT resting with no s/s of distress noted at this time. VSS. Bed is locked and low. Bilat soft wrist restraints remain in place and secure. Will continue to monitor.
[2018-11-03] VITALS (24 sets, daily range): BP systolic 101–142; BP diastolic 49–77
[2018-11-03] MEDS: methylPREDNISolone sod succ 125mg/2ml vial IV SCH ×4 (02:37→20:34)
[2018-11-03 02:48] LABS: BASOPHILS % (AUTO) 0.2 % (0-1); EOSINOPHILS % (AUTO) 0 % (0-6); HEMATOCRIT 39.3 % (35.0-45.0); LYMPHOCYTES # (AUTO) 0.5 X10'3 (1.1-4.8); LYMPHOCYTES % (AUTO) 4.1 % (21-51); MEAN CORPUSCULAR HEMOGLOBIN 31.1 PG (27.0-31.0); MEAN CORPUSCULAR HGB CONC 33.2 g/dL (33.0-36.5); MEAN CORPUSCULAR VOLUME 93.6 FL (78-98); MEAN PLATELET VOLUME 8.5 FL (7.4-10.4); MONOCYTES # (AUTO) 0.2 X10'3 (0-0.9); MONOCYTES % (AUTO) 2.2 % (2-12); NEUTROPHILS # (AUTO) 10.8 X10'3 (1.8-7.7); NEUTROPHILS % (AUTO) 93.5 % (42-75); PLATELET COUNT 215 X10'3 (140-440); RED CELL DISTRIBUTION WIDTH 15.6 % (11.5-14.5); WHITE BLOOD COUNT 11.6 X10'3 (4.5-11.0)
[2018-11-03 03:04] LABS: ALANINE AMINOTRANSFERASE 29 U/L (12-78); ALBUMIN 2.7 G/DL (3.4-5.0); ALBUMIN/GLOBULIN RATIO 0.9 (1.1-1.5); ALKALINE PHOSPHATASE 68 IU/L (46-116); ANION GAP 10 (8-16); ASPARTATE AMINO TRANSFERASE 11 U/L (10-37); BILIRUBIN,TOTAL 0.3 MG/DL (0.1-1.0); BLOOD UREA NITROGEN 19 MG/DL (7-18); BUN/CREATININE RATIO 17.6 (6.6-38.0); CHLORIDE 109 MMOL/L (99-107); CREATININE 1.08 MG/DL (0.40-0.90); GLUCOSE 185 MG/DL (70-104); MAGNESIUM 2.2 MG/DL (1.5-2.4); PHOSPHORUS 3.3 MG/DL (2.3-4.5); POTASSIUM 4.1 MMOL/L (3.5-5.1); SODIUM 143 MMOL/L (135-145); TOTAL PROTEIN 5.6 G/DL (6.4-8.2); eGFR 53 ML/MIN
[2018-11-03 03:10] LABS: PARTIAL THROMBOPLASTIN TIME 26 SECONDS (22-32)
[2018-11-03] MEDS: ipratropium/albuterol 3ml nebule NEB SCH ×6 (03:32→23:38)
[2018-11-03 03:45] LABS: ABG BASE EXCESS -0.5 mmol/L (-2.0-3.0); ABG HCO3 24.4 mmol/L (22.0-26.0); ABG OXYGEN SATURATION 95.4 % (95-98); ABG PCO2 (T) 41.5 mmHg (35.0-45.0); ABG PH (T) 7.388 (7.350-7.450); ABG PO2 (T) 79.5 mmHg (83-108); ALLEN'S TEST Positive; FMetHb 0.2 % (0.3-1.12); FO2Hb 95.2 % (94-100); MINUTE VOLUME 11 L/min; PATIENT TEMPERATURE 37.2; PEEP 10 cm H2O; RESPIRATORY RATE 20 b/min; RESPIRATORY RATE (OBSERVED) 20 b/min; TIDAL VOLUME 500 mL; TOTAL HEMOGLOBIN 13.9 G/dl (12.0-16.0)
[2018-11-03] MEDS: CefTRIAXone 2gm/D5W 50ml 50 ML IV SCH ×2 (04:34→08:23)
[2018-11-03] MEDS ORDERED: levoFLOXACIN-Levaquin 750MG/D5 150 ML IV SCH (05:00)
[2018-11-03] MEDS: midazolam 100mg in NS 100ml 100 ML IV PRN (05:14)
[2018-11-03] MEDS: propofol 1000mg/100ml bottle 100 ML IV PRN ×2 (05:48→14:35)
[2018-11-03] MEDS ORDERED: dextrose 50%-water 50ml dispensing syringe IV PRN ×2 (06:35)
[2018-11-03] MEDS ORDERED: dextrose ORAL solution 15 GM/59 ML bottle PO PRN ×2 (06:35)
[2018-11-03] MEDS ORDERED: MESSAGE TO PHARMACY PO ONE (06:35)
[2018-11-03] MEDS ORDERED: glucagon, human recombinant 1mg kit SUBCUT PRN (06:35)
--- NOTE | 2018-11-03 06:39 | NUR ---
Problems reprioritized. Patient report given, questions answered & plan of care reviewed with Arlene AGUILAR.
[2018-11-03] MEDS: ESOMEPRAZOLE 40 MG VIAL IV SCH (08:22)
[2018-11-03] MEDS: docusate sodium 100mg/10ml UD cup NG SCH ×2 (08:22→20:34)
[2018-11-03] MEDS: furosemide 10 MG/1 ML 10ml inj IV SCH (08:23)
[2018-11-03] MEDS: enoxaparin 40mg/0.4ml syringe SQ SCH (08:23)
[2018-11-03] MEDS: mineral oil/petrolatum ophthal oint EACHEYE SCH ×3 (08:23→20:34)
[2018-11-03] MEDS: insulin regular, human vial - multi-dose SQ SCH ×3 (08:33→20:43)
[2018-11-03] MEDS ORDERED: cyclobenzaprine 10mg tablet PO PRN (12:15)
[2018-11-03] MEDS ORDERED: albuterol 2.5 MG/3 ML nebule NEB PRN (12:20)
[2018-11-03] MEDS ORDERED: ipratropium/albuterol 3ml nebule IH PRN (12:20)
[2018-11-03] MEDS: FENTANYL-0.9 % NACL/PF 100 ML IV PRN (14:35)
--- NOTE | 2018-11-03 18:27 | NUR ---
Patient in room CICU 2012. I have received report from Arlene AGUILAR, and had the opportunity to ask questions and assume patient care.
[2018-11-03] MEDS: budesonide 0.5mg/2ml UD nebule IH SCH (19:36)
--- NOTE | 2018-11-03 20:00 | NUR ---
PT intubated and sedated, tolerating vent settings well. O2 sat >96%. PT is sedated with Propofol, Fentanyl and Versed, tolerating well. VSS. TF is running @ goal rate of 70ml/hr. Martinez in place draining to gravity. Bed is locked and low. Bilat soft wrist restraints in place and secure. Will continue to monitor.
[2018-11-03] MEDS: carVEDilol 12.5mg tablet PO SCH (20:34)
[2018-11-03] MEDS: insulin glargine (Lantus) pen - multi-dose SQ SCH (20:45)
[2018-11-04] VITALS (24 sets, daily range): BP systolic 107–169; BP diastolic 51–91
[2018-11-04] MEDS: methylPREDNISolone sod succ 125mg/2ml vial IV SCH ×4 (02:11→20:40)
[2018-11-04] MEDS: mineral oil/petrolatum ophthal oint EACHEYE SCH ×4 (02:11→20:41)
--- NOTE | 2018-11-04 02:30 | NUR ---
PT continues to rest with no s/s of distress noted at this time. VSS. Bed is locked and low. Bilat soft wrist restraints remain in place and secure. Will continue to monitor.
[2018-11-04 03:21] LABS: BASOPHILS % (AUTO) 0.1 % (0-1); EOSINOPHILS % (AUTO) 0 % (0-6); HEMATOCRIT 36.4 % (35.0-45.0); HEMOGLOBIN 12.1 g/dl (12.0-16.0); LYMPHOCYTES # (AUTO) 0.4 X10'3 (1.1-4.8); LYMPHOCYTES % (AUTO) 2.8 % (21-51); MEAN CORPUSCULAR HGB CONC 33.3 g/dL (33.0-36.5); MEAN PLATELET VOLUME 8.5 FL (7.4-10.4); MONOCYTES # (AUTO) 0.6 X10'3 (0-0.9); MONOCYTES % (AUTO) 4.2 % (2-12); NEUTROPHILS # (AUTO) 13.2 X10'3 (1.8-7.7); NEUTROPHILS % (AUTO) 92.9 % (42-75); PLATELET COUNT 189 X10'3 (140-440); RED BLOOD COUNT 3.92 X10'6 (4.20-5.60); WHITE BLOOD COUNT 14.2 X10'3 (4.5-11.0)
[2018-11-04] MEDS: ipratropium/albuterol 3ml nebule NEB SCH ×6 (03:34→23:07)
[2018-11-04 03:40] LABS: ALANINE AMINOTRANSFERASE 23 U/L (12-78); ALBUMIN 2.5 G/DL (3.4-5.0); ALBUMIN/GLOBULIN RATIO 0.9 (1.1-1.5); ALKALINE PHOSPHATASE 56 IU/L (46-116); ANION GAP 7 (8-16); ASPARTATE AMINO TRANSFERASE 4 U/L (10-37); BILIRUBIN,TOTAL 0.2 MG/DL (0.1-1.0); BLOOD UREA NITROGEN 33 MG/DL (7-18); BUN/CREATININE RATIO 44.6 (6.6-38.0); CHLORIDE 109 MMOL/L (99-107); CREATININE 0.74 MG/DL (0.40-0.90); GLUCOSE 94 MG/DL (70-104); PHOSPHORUS 2.7 MG/DL (2.3-4.5); POTASSIUM 3.9 MMOL/L (3.5-5.1); PREALBUMIN 27.7 MG/DL (19-36); SODIUM 143 MMOL/L (135-145); TOTAL CARBON DIOXIDE 26.9 MMOL/L (24-32); TOTAL PROTEIN 5.4 G/DL (6.4-8.2); eGFR 82 ML/MIN
[2018-11-04 03:44] LABS: PARTIAL THROMBOPLASTIN TIME 24 SECONDS (22-32)
[2018-11-04 03:51] LABS: ABG BASE EXCESS 3.1 mmol/L (-2.0-3.0); ABG HCO3 27.2 mmol/L (22.0-26.0); ABG OXYGEN SATURATION 94.8 % (95-98); ABG PCO2 (T) 39.4 mmHg (35.0-45.0); ABG PH (T) 7.456 (7.350-7.450); ABG PO2 (T) 72.4 mmHg (83-108); FCOHb 0.3 % (0.5-1.5); FMetHb 0.1 % (0.3-1.12); FO2Hb 94.4 % (94-100); MINUTE VOLUME 12 L/min; PATIENT TEMPERATURE 36.8; PEEP 5 cm H2O; RESPIRATORY RATE 20 b/min; RESPIRATORY RATE (OBSERVED) 20 b/min; TIDAL VOLUME 500 mL; TOTAL HEMOGLOBIN 12.9 G/dl (12.0-16.0)
[2018-11-04] MEDS: levoFLOXACIN-Levaquin 750MG/D5 150 ML IV SCH (05:16)
--- NOTE | 2018-11-04 06:25 | NUR ---
Problems reprioritized. Patient report given, questions answered & plan of care reviewed with Arlene AGUILAR.
[2018-11-04] MEDS: budesonide 0.5mg/2ml UD nebule IH SCH ×2 (06:48→18:46)
--- NOTE | 2018-11-04 06:54 | NUR ---
Patient in room CICU 2012. I have received report from LAUREN Corona and had the opportunity to ask questions and assume patient care.
[2018-11-04] MEDS: ESOMEPRAZOLE 40 MG VIAL IV SCH (07:17)
[2018-11-04] MEDS: aspirin 81mg tablet.DR PO SCH (07:17)
[2018-11-04] MEDS: furosemide 10 MG/1 ML 10ml inj IV SCH (07:17)
[2018-11-04] MEDS: loratadine 10mg tablet PO SCH (07:17)
[2018-11-04] MEDS: docusate sodium 100mg/10ml UD cup NG SCH ×2 (07:17→20:40)
[2018-11-04] MEDS: carVEDilol 12.5mg tablet PO SCH ×2 (07:17→20:40)
[2018-11-04] MEDS: CefTRIAXone 2gm/D5W 50ml 50 ML IV SCH (07:18)
[2018-11-04] MEDS: calcium carbonate/vitamin D3 tablet PO SCH (07:18)
[2018-11-04] MEDS: potassium chloride 8mEq ER tablet PO SCH (07:18)
[2018-11-04] MEDS: enoxaparin 40mg/0.4ml syringe SQ SCH (07:18)
[2018-11-04] MEDS: propofol 1000mg/100ml bottle 100 ML IV PRN ×3 (07:18→22:28)
[2018-11-04] MEDS: insulin regular, human vial - multi-dose SQ SCH ×3 (07:36→20:54)
[2018-11-04] MEDS ORDERED: lisinopril 5mg tablet PO SCH (08:00)
[2018-11-04] MEDS ORDERED: furosemide 20MG tablet PO SCH (08:00)
[2018-11-04] MEDS ORDERED: TIOTROPIUM BROMIDE INH SCH (08:00)
[2018-11-04] MEDS: midazolam 100mg in NS 100ml 100 ML IV PRN (13:14)
[2018-11-04] MEDS: FENTANYL-0.9 % NACL/PF 100 ML IV PRN (13:17)
--- NOTE | 2018-11-04 18:25 | NUR ---
Problems reprioritized. Patient report given, questions answered & plan of care reviewed with LAUREN Corona.
[2018-11-04] MEDS: lactobacillus rhamnosus 10,000 MMU CELLS/CAPSULE PO SCH (20:40)
[2018-11-04] MEDS: insulin glargine (Lantus) pen - multi-dose SQ SCH (20:55)
[2018-11-05] VITALS (25 sets, daily range): BP systolic 128–194; BP diastolic 63–107
[2018-11-05] MEDS: mineral oil/petrolatum ophthal oint EACHEYE SCH ×4 (02:50→19:46)
[2018-11-05] MEDS: methylPREDNISolone sod succ 125mg/2ml vial IV SCH ×4 (02:50→19:45)
[2018-11-05] MEDS: ipratropium/albuterol 3ml nebule NEB SCH ×6 (03:04→19:22)
[2018-11-05 03:05] LABS: ABG BASE EXCESS 4.3 mmol/L (-2.0-3.0); ABG HCO3 27.7 mmol/L (22.0-26.0); ABG PCO2 (T) 37.5 mmHg (35.0-45.0); ABG PH (T) 7.487 (7.350-7.450); ABG PO2 (T) 70.4 mmHg (83-108); ALLEN'S TEST Positive; FCOHb 0.3 % (0.5-1.5); FMetHb 0.2 % (0.3-1.12); FO2Hb 93.5 % (94-100); MINUTE VOLUME 10 L/min; PATIENT TEMPERATURE 37.1; PEEP 5 cm H2O; RESPIRATORY RATE 20 b/min; RESPIRATORY RATE (OBSERVED) 20 b/min; TIDAL VOLUME 500 mL; TOTAL HEMOGLOBIN 13.3 G/dl (12.0-16.0)
[2018-11-05] MEDS: insulin regular, human vial - multi-dose SQ SCH ×2 (03:23→08:23)
[2018-11-05 03:43] LABS: BASOPHILS % (AUTO) 0 % (0-1); EOSINOPHILS % (AUTO) 0 % (0-6); HEMATOCRIT 37.6 % (35.0-45.0); HEMOGLOBIN 12.4 g/dl (12.0-16.0); LYMPHOCYTES # (AUTO) 0.4 X10'3 (1.1-4.8); MEAN CORPUSCULAR HEMOGLOBIN 30.9 PG (27.0-31.0); MEAN CORPUSCULAR HGB CONC 33.1 g/dL (33.0-36.5); MEAN CORPUSCULAR VOLUME 93.4 FL (78-98); MONOCYTES # (AUTO) 0.7 X10'3 (0-0.9); MONOCYTES % (AUTO) 5.2 % (2-12); NEUTROPHILS # (AUTO) 12.6 X10'3 (1.8-7.7); NEUTROPHILS % (AUTO) 91.8 % (42-75); PLATELET COUNT 197 X10'3 (140-440); RED BLOOD COUNT 4.02 X10'6 (4.20-5.60); RED CELL DISTRIBUTION WIDTH 16.3 % (11.5-14.5); WHITE BLOOD COUNT 13.7 X10'3 (4.5-11.0)
[2018-11-05 03:56] LABS: PARTIAL THROMBOPLASTIN TIME 24 SECONDS (22-32)
[2018-11-05 04:01] LABS: ALANINE AMINOTRANSFERASE 23 U/L (12-78); ALBUMIN 2.4 G/DL (3.4-5.0); ALBUMIN/GLOBULIN RATIO 0.8 (1.1-1.5); ALKALINE PHOSPHATASE 56 IU/L (46-116); ANION GAP 6 (8-16); ASPARTATE AMINO TRANSFERASE 5 U/L (10-37); BILIRUBIN,TOTAL 0.2 MG/DL (0.1-1.0); BLOOD UREA NITROGEN 43 MG/DL (7-18); BUN/CREATININE RATIO 55.1 (6.6-38.0); CALCIUM 7.8 MG/DL (8.5-10.1); CHLORIDE 108 MMOL/L (99-107); CREATININE 0.78 MG/DL (0.40-0.90); GLUCOSE 121 MG/DL (70-104); POTASSIUM 3.9 MMOL/L (3.5-5.1); SODIUM 142 MMOL/L (135-145); TOTAL PROTEIN 5.4 G/DL (6.4-8.2); eGFR 78 ML/MIN
[2018-11-05] MEDS: levoFLOXACIN-Levaquin 750MG/D5 150 ML IV SCH (05:28)
--- NOTE | 2018-11-05 06:10 | NUR ---
Patient in room CICU 2012. I have received report from Chloe AGUILAR and had the opportunity to ask questions and assume patient care.
--- NOTE | 2018-11-05 06:34 | NUR ---
Problems reprioritized. Patient report given, questions answered & plan of care reviewed with Azalea AGUILAR.
[2018-11-05] MEDS: budesonide 0.5mg/2ml UD nebule IH SCH ×2 (06:53→19:22)
[2018-11-05] MEDS: furosemide 10 MG/1 ML 10ml inj IV SCH (07:45)
[2018-11-05] MEDS: CefTRIAXone 2gm/D5W 50ml 50 ML IV SCH (07:45)
[2018-11-05] MEDS: ESOMEPRAZOLE 40 MG VIAL IV SCH (07:45)
[2018-11-05] MEDS: docusate sodium 100mg/10ml UD cup NG SCH ×2 (07:45→19:46)
[2018-11-05] MEDS: calcium carbonate/vitamin D3 tablet PO SCH (07:46)
[2018-11-05] MEDS: loratadine 10mg tablet PO SCH (07:46)
[2018-11-05] MEDS: potassium chloride 8mEq ER tablet PO SCH (07:46)
[2018-11-05] MEDS: carVEDilol 12.5mg tablet PO SCH ×2 (07:46→19:46)
[2018-11-05] MEDS: aspirin 81mg tablet.DR PO SCH (07:46)
[2018-11-05] MEDS: enoxaparin 40mg/0.4ml syringe SQ SCH (07:46)
[2018-11-05] MEDS: lactobacillus rhamnosus 10,000 MMU CELLS/CAPSULE PO SCH ×2 (07:46→19:46)
[2018-11-05] MEDS ORDERED: POTASSIUM BICARBONATE/CIT AC 10 MEQ TABLET.EFF PO SCH (08:29)
[2018-11-05] MEDS ORDERED: potassium chloride 8mEq ER tablet PO SCH (08:32)
[2018-11-05] MEDS: POTASSIUM BICARBONATE/CIT AC 10 MEQ TABLET.EFF PO SCH (10:04)
[2018-11-05] MEDS ORDERED: ipratropium/albuterol 3ml nebule NEB PRN (10:05)
[2018-11-05] MEDS ORDERED: racepinephrine 11.25mg/0.5ml nebule NEB PRN (10:05)
--- NOTE | 2018-11-05 10:59 | NUR ---
Reassessment: Pt previously tolerating TF at goal however was extubated today and TF has been discontinued. PO diet advancement pending BSS, ST has already been consulted. LBM 11/02, pt with routine Colace and PRN MoM not yet given. Will continue to follow. Rec: 1. Diet advancement to heart healthy pending BSS 5. Routine bowel care; monitor need for additional 6. Wt per rx Addendum: 11/05/18 at [address] Amended: Links added.
--- NOTE | 2018-11-05 11:08 | NUR ---
After pt extubation pt asking for backpack. Pt states wants to go through backpack when everyone leaves. I opened backpack and found large kitchen knife and makeup container containing baggies of white powder. Pt tearful and anxious. Pt states backpack is not hers, although her cell phone was found inside and is currently at bedside charging. Pt is restless.
--- NOTE | 2018-11-05 18:20 | NUR ---
Problems reprioritized. Patient report given, questions answered & plan of care reviewed with LAUREN Gonzales.
--- NOTE | 2018-11-05 18:30 | NUR ---
Patient in room CICU 2011. I have received report from LAUREN Tristan and had the opportunity to ask questions and assume patient care. Patient is awake and alert. Seated in bed, tearful due to not being able to reach a family member on the phone. Patient becomes agitated and yells out at times. no compliant of pain.
[2018-11-05] MEDS: insulin glargine (Lantus) pen - multi-dose SQ SCH (20:32)
--- NOTE | 2018-11-05 20:40 | NUR ---
Juan Jose Purvis, WIRE TAPER at bedside. Provider made aware of patients BP 192/104 (133). This has been her BP for the last couple hours. Patient did get her Coreg tonight at 0745. Order for: Clonidine 0.2mg PO BID hold for systolic less than 160. Order to change insulin to Humalog, patient no longer on tube feeding.
--- NOTE | 2018-11-05 20:53 | NUR ---
Patients son Tee called. Left message for his mother: he and his brother will be by to visit tomorrow.
[2018-11-05] MEDS: cloNIDine 0.1 mg tablet PO SCH (21:18)
[2018-11-06] VITALS (24 sets, daily range): BP systolic 129–182; BP diastolic 69–101
[2018-11-06] MEDS: mineral oil/petrolatum ophthal oint EACHEYE SCH ×3 (00:25→13:35)
[2018-11-06] MEDS: methylPREDNISolone sod succ 125mg/2ml vial IV SCH ×4 (02:56→19:50)
[2018-11-06] MEDS: ipratropium/albuterol 3ml nebule NEB SCH ×4 (02:56→20:44)
[2018-11-06 03:30] LABS: BASOPHILS % (AUTO) 0.1 % (0-1); EOSINOPHILS % (AUTO) 0 % (0-6); HEMATOCRIT 40.1 % (35.0-45.0); HEMOGLOBIN 13.1 g/dl (12.0-16.0); LYMPHOCYTES # (AUTO) 0.7 X10'3 (1.1-4.8); LYMPHOCYTES % (AUTO) 5.8 % (21-51); MEAN CORPUSCULAR HEMOGLOBIN 30.6 PG (27.0-31.0); MEAN CORPUSCULAR HGB CONC 32.8 g/dL (33.0-36.5); MEAN CORPUSCULAR VOLUME 93.4 FL (78-98); MEAN PLATELET VOLUME 8.5 FL (7.4-10.4); MONOCYTES # (AUTO) 0.8 X10'3 (0-0.9); MONOCYTES % (AUTO) 6.9 % (2-12); NEUTROPHILS # (AUTO) 10.6 X10'3 (1.8-7.7); NEUTROPHILS % (AUTO) 87.2 % (42-75); PLATELET COUNT 208 X10'3 (140-440); RED BLOOD COUNT 4.29 X10'6 (4.20-5.60); RED CELL DISTRIBUTION WIDTH 16.3 % (11.5-14.5); WHITE BLOOD COUNT 12.1 X10'3 (4.5-11.0)
[2018-11-06 03:49] LABS: PARTIAL THROMBOPLASTIN TIME 24 SECONDS (22-32)
[2018-11-06 03:59] LABS: ALANINE AMINOTRANSFERASE 23 U/L (12-78); ALBUMIN 2.5 G/DL (3.4-5.0); ALBUMIN/GLOBULIN RATIO 0.9 (1.1-1.5); ALKALINE PHOSPHATASE 47 IU/L (46-116); ANION GAP 4 (8-16); ASPARTATE AMINO TRANSFERASE 10 U/L (10-37); BILIRUBIN,TOTAL 0.3 MG/DL (0.1-1.0); BLOOD UREA NITROGEN 39 MG/DL (7-18); BUN/CREATININE RATIO 50.6 (6.6-38.0); CALCIUM 7.8 MG/DL (8.5-10.1); CHLORIDE 107 MMOL/L (99-107); CREATININE 0.77 MG/DL (0.40-0.90); GLUCOSE 109 MG/DL (70-104); MAGNESIUM 2.1 MG/DL (1.5-2.4); PHOSPHORUS 4.5 MG/DL (2.3-4.5); POTASSIUM 3.9 MMOL/L (3.5-5.1); SODIUM 143 MMOL/L (135-145); TOTAL CARBON DIOXIDE 32.1 MMOL/L (24-32); TOTAL PROTEIN 5.4 G/DL (6.4-8.2); eGFR 79 ML/MIN
--- NOTE | 2018-11-06 06:30 | NUR ---
Patient in room ICU 2044. I have received report from third shift lieutenant nurse and had the opportunity to ask questions and assume patient care.
--- NOTE | 2018-11-06 06:34 | NUR ---
Problems reprioritized. Patient report given, questions answered & plan of care reviewed with LAUREN Barney.
[2018-11-06] MEDS: furosemide 10 MG/1 ML 10ml inj IV SCH (07:55)
[2018-11-06] MEDS: ESOMEPRAZOLE 40 MG VIAL IV SCH (07:55)
[2018-11-06] MEDS: CefTRIAXone 2gm/D5W 50ml 50 ML IV SCH (07:56)
[2018-11-06] MEDS ORDERED: folic acid inj. 2 MG, thiamine inj. 100 MG, MVI, adult No.4 with vit. K 10 ML in dextro... IV SCH ×4 (08:00)
[2018-11-06] MEDS: cloNIDine 0.1 mg tablet PO SCH ×2 (08:15→19:51)
[2018-11-06] MEDS: docusate sodium 100mg/10ml UD cup NG SCH ×2 (08:15→19:52)
[2018-11-06] MEDS: lactobacillus rhamnosus 10,000 MMU CELLS/CAPSULE PO SCH ×2 (08:15→19:50)
[2018-11-06] MEDS: enoxaparin 40mg/0.4ml syringe SQ SCH (08:16)
[2018-11-06] MEDS: POTASSIUM BICARBONATE/CIT AC 10 MEQ TABLET.EFF PO SCH (08:16)
[2018-11-06] MEDS: calcium carbonate/vitamin D3 tablet PO SCH (08:16)
[2018-11-06] MEDS: aspirin 81mg tablet.DR PO SCH (08:16)
[2018-11-06] MEDS: loratadine 10mg tablet PO SCH (08:17)
[2018-11-06] MEDS: carVEDilol 12.5mg tablet PO SCH ×2 (08:17→19:52)
[2018-11-06] MEDS: budesonide 0.5mg/2ml UD nebule IH SCH ×2 (08:24→20:44)
[2018-11-06] MEDS: insulin Lispro (HumaLOG) vial - multi-dose SQ SCH ×3 (09:31→19:46)
--- NOTE | 2018-11-06 09:39 | NUR ---
Pt up to chair at 0800 to eat breakfast. Min assist of 2. Tolerated breakfast well. No noted swallowing difficulties. Back to bed at 0850. Vianey-care provided, sm smear of BM. Linens changed.
--- NOTE | 2018-11-06 10:35 | NUR ---
Dr. Castano here to see pt., plan of care reviewed.
--- NOTE | 2018-11-06 10:45 | NUR ---
Pt ambulate with PT, then back to bed and positioned for comfort.
[2018-11-06] MEDS ORDERED: thiamine inj. 100 MG in normal saline 100ml IV soln 100 ML IV ONE (11:15)
[2018-11-06] MEDS ORDERED: dextrose 50%-water 50ml dispensing syringe IV PRN (11:15)
[2018-11-06] MEDS: atenolol 50mg tablet PO SCH (12:03)
--- NOTE | 2018-11-06 12:30 | NUR ---
Pt up to chair for lunch.
[2018-11-06] MEDS: thiamine inj. 100 MG, folic acid inj. 2 MG in normal saline 100ml IV soln 100 ML IV SCH (13:44)
[2018-11-06] MEDS: MVI, adult No.4 with vit. K 10 ML in dextrose 5% water 500ml 500 ML IV SCH ×2 (15:06)
--- NOTE | 2018-11-06 18:18 | NUR ---
Problems reprioritized. Patient report given, questions answered & plan of care reviewed with.
--- NOTE | 2018-11-06 18:20 | NUR ---
Patient in room ICU 2044. I have received report from LAUREN Barney and had the opportunity to ask questions and assume patient care. Patient sleeping at time of report. In no distress at this time.
--- NOTE | 2018-11-06 20:30 | NUR ---
Patient refusing bed bath and shampoo cap. While up for dinner, linen was changed and patient did her own oral care. Patient states " I am tired, I don't want to right now."
[2018-11-06] MEDS: insulin glargine (Lantus) pen - multi-dose SQ SCH (21:53)
[2018-11-07] VITALS (18 sets, daily range): BP systolic 123–172; BP diastolic 69–105
[2018-11-07 00:12] LABS: MAGNESIUM 2.1 MG/DL (1.5-2.4); POTASSIUM 3.9 MMOL/L (3.5-5.1)
[2018-11-07] MEDS: methylPREDNISolone sod succ 125mg/2ml vial IV SCH ×4 (01:46→19:32)
[2018-11-07] MEDS: ipratropium/albuterol 3ml nebule NEB SCH ×4 (02:28→19:54)
[2018-11-07 03:33] LABS: BASOPHILS % (AUTO) 0.1 % (0-1); EOSINOPHILS % (AUTO) 0 % (0-6); HEMOGLOBIN 14.6 g/dl (12.0-16.0); LYMPHOCYTES # (AUTO) 0.7 X10'3 (1.1-4.8); LYMPHOCYTES % (AUTO) 5.1 % (21-51); MEAN CORPUSCULAR HEMOGLOBIN 30.9 PG (27.0-31.0); MEAN CORPUSCULAR HGB CONC 33.2 g/dL (33.0-36.5); MONOCYTES # (AUTO) 0.7 X10'3 (0-0.9); MONOCYTES % (AUTO) 5.5 % (2-12); NEUTROPHILS # (AUTO) 11.7 X10'3 (1.8-7.7); NEUTROPHILS % (AUTO) 89.3 % (42-75); PLATELET COUNT 236 X10'3 (140-440); RED BLOOD COUNT 4.73 X10'6 (4.20-5.60); WHITE BLOOD COUNT 13.1 X10'3 (4.5-11.0)
--- NOTE | 2018-11-07 03:35 | NUR ---
Patient appears to be sleeping most to of the night. She does awaken and is appropriate for medication passes and lab draws. Patient is repositions herself well.
[2018-11-07 03:56] LABS: ALANINE AMINOTRANSFERASE 21 U/L (12-78); ALBUMIN 2.5 G/DL (3.4-5.0); ALBUMIN/GLOBULIN RATIO 0.9 (1.1-1.5); ALKALINE PHOSPHATASE 48 IU/L (46-116); ANION GAP 5 (8-16); ASPARTATE AMINO TRANSFERASE 8 U/L (10-37); BILIRUBIN,TOTAL 0.3 MG/DL (0.1-1.0); BLOOD UREA NITROGEN 35 MG/DL (7-18); BUN/CREATININE RATIO 49.3 (6.6-38.0); CALCIUM 8.2 MG/DL (8.5-10.1); CHLORIDE 103 MMOL/L (99-107); CREATININE 0.71 MG/DL (0.40-0.90); GLUCOSE 107 MG/DL (70-104); MAGNESIUM 2.1 MG/DL (1.5-2.4); PHOSPHORUS 4.5 MG/DL (2.3-4.5); POTASSIUM 4.1 MMOL/L (3.5-5.1); SODIUM 141 MMOL/L (135-145); TOTAL CARBON DIOXIDE 33.1 MMOL/L (24-32); TOTAL PROTEIN 5.4 G/DL (6.4-8.2); eGFR 86 ML/MIN
[2018-11-07 03:59] LABS: PARTIAL THROMBOPLASTIN TIME 25 SECONDS (22-32)
--- NOTE | 2018-11-07 06:18 | NUR ---
Problems reprioritized. Patient report given, questions answered & plan of care reviewed with LAUREN Pickering.
[2018-11-07] MEDS: budesonide 0.5mg/2ml UD nebule IH SCH ×2 (07:54→19:54)
[2018-11-07] MEDS: POTASSIUM BICARBONATE/CIT AC 10 MEQ TABLET.EFF PO SCH (08:00)
[2018-11-07] MEDS: docusate sodium 100mg/10ml UD cup NG SCH ×2 (08:00→19:32)
[2018-11-07] MEDS: furosemide 10 MG/1 ML 10ml inj IV SCH (08:17)
[2018-11-07] MEDS: aspirin 81mg tablet.DR PO SCH (08:17)
[2018-11-07] MEDS: lactobacillus rhamnosus 10,000 MMU CELLS/CAPSULE PO SCH ×2 (08:17→19:32)
[2018-11-07] MEDS: carVEDilol 12.5mg tablet PO SCH ×2 (08:17→19:32)
[2018-11-07] MEDS: loratadine 10mg tablet PO SCH (08:17)
[2018-11-07] MEDS: calcium carbonate/vitamin D3 tablet PO SCH (08:17)
[2018-11-07] MEDS: ESOMEPRAZOLE 40 MG VIAL IV SCH (08:17)
[2018-11-07] MEDS: CefTRIAXone 2gm/D5W 50ml 50 ML IV SCH (08:18)
[2018-11-07] MEDS: enoxaparin 40mg/0.4ml syringe SQ SCH (08:18)
[2018-11-07] MEDS: thiamine inj. 100 MG, folic acid inj. 2 MG in normal saline 100ml IV soln 100 ML IV SCH (08:43)
[2018-11-07] MEDS: MVI, adult No.4 with vit. K 10 ML in dextrose 5% water 500ml 500 ML IV SCH ×2 (08:43)
[2018-11-07] MEDS: insulin Lispro (HumaLOG) vial - multi-dose SQ SCH ×3 (09:06→19:29)
[2018-11-07] MEDS: atenolol 50mg tablet PO SCH (09:07)
[2018-11-07] MEDS: cloNIDine 0.1 mg tablet PO SCH ×2 (11:41→19:32)
--- NOTE | 2018-11-07 14:00 | NUR ---
Patient in room PCU 3012. I have received report from LAUREN Pickering and had the opportunity to ask questions and assume patient care.
--- NOTE | 2018-11-07 14:30 | NUR ---
Report given to LAUREN Smith. All questions answered. Patient transferred to room 3012A via wheelchair accompanied by LAUREN Ribeiro.
--- NOTE | 2018-11-07 17:22 | NUR ---
New hire documentation: I have reviewed and agree with all interventions, assessments performed and documented by LAUREN Herrera.
--- NOTE | 2018-11-07 18:26 | NUR ---
Problems reprioritized. Patient report given, questions answered & plan of care reviewed with LAUREN Mc.
[2018-11-07] MEDS: insulin glargine (Lantus) pen - multi-dose SQ SCH (21:00)
[2018-11-08] MEDS: ipratropium/albuterol 3ml nebule NEB SCH ×4 (02:02→20:08)
[2018-11-08] MEDS: methylPREDNISolone sod succ 125mg/2ml vial IV SCH ×3 (02:24→13:09)
[2018-11-08 03:00] VITALS: BP 132/64
[2018-11-08 05:32] LABS: BASOPHILS % (AUTO) 0.2 % (0-1); EOSINOPHILS % (AUTO) 0 % (0-6); HEMOGLOBIN 15.1 g/dl (12.0-16.0); LYMPHOCYTES # (AUTO) 0.6 X10'3 (1.1-4.8); LYMPHOCYTES % (AUTO) 3.7 % (21-51); MEAN CORPUSCULAR HEMOGLOBIN 30.7 PG (27.0-31.0); MEAN CORPUSCULAR HGB CONC 32.8 g/dL (33.0-36.5); MEAN CORPUSCULAR VOLUME 93.6 FL (78-98); MEAN PLATELET VOLUME 8.7 FL (7.4-10.4); MONOCYTES # (AUTO) 0.9 X10'3 (0-0.9); MONOCYTES % (AUTO) 5.2 % (2-12); NEUTROPHILS # (AUTO) 15.1 X10'3 (1.8-7.7); NEUTROPHILS % (AUTO) 90.9 % (42-75); PLATELET COUNT 218 X10'3 (140-440); RED BLOOD COUNT 4.91 X10'6 (4.20-5.60); RED CELL DISTRIBUTION WIDTH 15.8 % (11.5-14.5); WHITE BLOOD COUNT 16.6 X10'3 (4.5-11.0)
[2018-11-08 05:44] LABS: ALANINE AMINOTRANSFERASE 24 U/L (12-78); ALBUMIN 2.5 G/DL (3.4-5.0); ALBUMIN/GLOBULIN RATIO 0.9 (1.1-1.5); ALKALINE PHOSPHATASE 54 IU/L (46-116); ANION GAP 3 (8-16); ASPARTATE AMINO TRANSFERASE 6 U/L (10-37); BILIRUBIN,TOTAL 0.3 MG/DL (0.1-1.0); BLOOD UREA NITROGEN 34 MG/DL (7-18); BUN/CREATININE RATIO 49.3 (6.6-38.0); CHLORIDE 101 MMOL/L (99-107); CREATININE 0.69 MG/DL (0.40-0.90); GLUCOSE 134 MG/DL (70-104); MAGNESIUM 2.2 MG/DL (1.5-2.4); POTASSIUM 4.2 MMOL/L (3.5-5.1); SODIUM 138 MMOL/L (135-145); TOTAL CARBON DIOXIDE 34.2 MMOL/L (24-32); TOTAL PROTEIN 5.3 G/DL (6.4-8.2); eGFR 89 ML/MIN
--- NOTE | 2018-11-08 06:44 | NUR ---
Patient in room PCU 3012. I have received report from Jesusita AGUILAR and had the opportunity to ask questions and assume patient care.
[2018-11-08 07:00] VITALS: BP 177/101
[2018-11-08] MEDS: carVEDilol 12.5mg tablet PO SCH ×2 (07:17→19:52)
[2018-11-08] MEDS: aspirin 81mg tablet.DR PO SCH (07:17)
[2018-11-08] MEDS: cloNIDine 0.1 mg tablet PO SCH (07:17)
[2018-11-08] MEDS: lactobacillus rhamnosus 10,000 MMU CELLS/CAPSULE PO SCH ×2 (07:18→19:53)
[2018-11-08] MEDS: loratadine 10mg tablet PO SCH (07:18)
[2018-11-08] MEDS: calcium carbonate/vitamin D3 tablet PO SCH (07:18)
[2018-11-08] MEDS: atenolol 50mg tablet PO SCH (07:18)
[2018-11-08] MEDS: furosemide 10 MG/1 ML 10ml inj IV SCH (07:19)
[2018-11-08] MEDS: CefTRIAXone 2gm/D5W 50ml 50 ML IV SCH (07:19)
[2018-11-08] MEDS: docusate sodium 100mg/10ml UD cup NG SCH ×2 (08:00→19:52)
[2018-11-08] MEDS: budesonide 0.5mg/2ml UD nebule IH SCH ×2 (08:13→20:08)
[2018-11-08] MEDS: enoxaparin 40mg/0.4ml syringe SQ SCH (08:27)
[2018-11-08] MEDS: insulin Lispro (HumaLOG) vial - multi-dose SQ SCH ×3 (08:50→19:29)
[2018-11-08] MEDS: ESOMEPRAZOLE 40 MG VIAL IV SCH (09:48)
[2018-11-08] MEDS: thiamine inj. 100 MG, folic acid inj. 2 MG in normal saline 100ml IV soln 100 ML IV SCH (09:49)
[2018-11-08] MEDS: MVI, adult No.4 with vit. K 10 ML in dextrose 5% water 500ml 500 ML IV SCH ×2 (09:50)
[2018-11-08] MEDS: POTASSIUM BICARBONATE/CIT AC 10 MEQ TABLET.EFF PO SCH (09:51)
--- NOTE | 2018-11-08 10:07 | NUR ---
Reassessment: Pt advanced to carb controlled diet PO 100% meals meeting needs. LBM 11/05. No nutrition concerns at this time. Will continue to monitor. Rec: 1. continue carb controlled diet 2. Routine bowel care; monitor need for additional 3. Wt per rx Addendum: 11/08/18 at [address] Amended: Links added.
[2018-11-08 11:00] VITALS: BP 102/61
[2018-11-08 15:00] VITALS: BP 135/74
[2018-11-08] MEDS: lisinopril 20mg tablet PO SCH (16:58)
[2018-11-08 18:00] VITALS: BP 128/66
--- NOTE | 2018-11-08 18:20 | NUR ---
Received report from LAUREN Garnett with LAUREN Herrera. Patient is awake and alert on room air, in no apparent distress. Call light and items of frequent use within reach. Will continue to monitor.
--- NOTE | 2018-11-08 18:26 | NUR ---
Problems reprioritized. Patient report given, questions answered & plan of care reviewed with Angela AGUILAR.
[2018-11-08] MEDS: insulin glargine (Lantus) pen - multi-dose SQ SCH (20:54)
[2018-11-08 22:00] VITALS: BP 124/71
[2018-11-09] MEDS: methylPREDNISolone sod succ 125mg/2ml vial IV SCH ×3 (00:48→15:42)
--- NOTE | 2018-11-09 02:05 | NUR ---
Patient refused 0200 vital signs to be obtained.
[2018-11-09] MEDS: ipratropium/albuterol 3ml nebule NEB SCH ×4 (02:17→20:11)
[2018-11-09 05:57] LABS: BASOPHILS % (AUTO) 0.2 % (0-1); EOSINOPHILS % (AUTO) 0 % (0-6); HEMATOCRIT 43.6 % (35.0-45.0); HEMOGLOBIN 14.2 g/dl (12.0-16.0); LYMPHOCYTES # (AUTO) 0.5 X10'3 (1.1-4.8); LYMPHOCYTES % (AUTO) 3.1 % (21-51); MEAN CORPUSCULAR HEMOGLOBIN 30.5 PG (27.0-31.0); MEAN CORPUSCULAR HGB CONC 32.6 g/dL (33.0-36.5); MEAN CORPUSCULAR VOLUME 93.7 FL (78-98); MEAN PLATELET VOLUME 8.3 FL (7.4-10.4); MONOCYTES # (AUTO) 0.9 X10'3 (0-0.9); MONOCYTES % (AUTO) 5.3 % (2-12); NEUTROPHILS # (AUTO) 16.1 X10'3 (1.8-7.7); NEUTROPHILS % (AUTO) 91.4 % (42-75); PLATELET COUNT 210 X10'3 (140-440); RED BLOOD COUNT 4.66 X10'6 (4.20-5.60); RED CELL DISTRIBUTION WIDTH 15.8 % (11.5-14.5); WHITE BLOOD COUNT 17.6 X10'3 (4.5-11.0)
[2018-11-09 06:13] LABS: ALANINE AMINOTRANSFERASE 19 U/L (12-78); ALBUMIN 2.4 G/DL (3.4-5.0); ALBUMIN/GLOBULIN RATIO 0.9 (1.1-1.5); ALKALINE PHOSPHATASE 53 IU/L (46-116); ANION GAP 6 (8-16); ASPARTATE AMINO TRANSFERASE 8 U/L (10-37); BILIRUBIN,TOTAL 0.2 MG/DL (0.1-1.0); BLOOD UREA NITROGEN 42 MG/DL (7-18); BUN/CREATININE RATIO 48.8 (6.6-38.0); CHLORIDE 102 MMOL/L (99-107); CREATININE 0.86 MG/DL (0.40-0.90); GLUCOSE 126 MG/DL (70-104); MAGNESIUM 2.1 MG/DL (1.5-2.4); POTASSIUM 4.1 MMOL/L (3.5-5.1); SODIUM 138 MMOL/L (135-145); TOTAL CARBON DIOXIDE 29.8 MMOL/L (24-32); eGFR 69 ML/MIN
--- NOTE | 2018-11-09 06:24 | NUR ---
Problems reprioritized. Patient report given, questions answered & plan of care reviewed with LAUREN Kemp and LAUREN Garnett. RN aware that patient accidentally pulled out her IV, and I have attempted twice to put IV back and was unsuccessful.
--- NOTE | 2018-11-09 06:32 | NUR ---
Patient in room U 3012A. I have received report from LAUREN Miller and had the opportunity to ask questions and assume patient care. Pt sitting up at edge of bed, denies any discomfort. All needs met at this time. Addendum: 11/09/18 at 0635 by Mariola Mcclendon RN Report received from LAUREN Lebron
[2018-11-09 07:00] VITALS: BP 163/97
[2018-11-09] MEDS: budesonide 0.5mg/2ml UD nebule IH SCH ×2 (07:50→20:00)
[2018-11-09] MEDS: docusate sodium 100mg/10ml UD cup NG SCH (08:00)
[2018-11-09] MEDS: loratadine 10mg tablet PO SCH (09:01)
[2018-11-09] MEDS: enoxaparin 40mg/0.4ml syringe SQ SCH (09:01)
[2018-11-09] MEDS: aspirin 81mg tablet.DR PO SCH (09:01)
[2018-11-09] MEDS: lactobacillus rhamnosus 10,000 MMU CELLS/CAPSULE PO SCH ×2 (09:01→20:50)
[2018-11-09] MEDS: calcium carbonate/vitamin D3 tablet PO SCH (09:02)
[2018-11-09] MEDS: lisinopril 20mg tablet PO SCH (09:02)
[2018-11-09] MEDS: carVEDilol 12.5mg tablet PO SCH ×2 (09:02→20:50)
[2018-11-09] MEDS: insulin Lispro (HumaLOG) vial - multi-dose SQ SCH ×2 (09:06→12:55)
[2018-11-09] MEDS: POTASSIUM BICARBONATE/CIT AC 10 MEQ TABLET.EFF PO SCH (09:43)
[2018-11-09] MEDS: pantoprazole 40mg Tablet.DR PO SCH (09:44)
[2018-11-09] MEDS: furosemide 10 MG/1 ML 10ml inj IV SCH (10:42)
[2018-11-09] MEDS: CefTRIAXone 2gm/D5W 50ml 50 ML IV SCH (10:43)
[2018-11-09 11:00] VITALS: BP 164/85
[2018-11-09] MEDS: MVI, adult No.4 with vit. K 10 ML in dextrose 5% water 500ml 500 ML IV SCH ×2 (11:31)
[2018-11-09] MEDS: thiamine inj. 100 MG, folic acid inj. 2 MG in normal saline 100ml IV soln 100 ML IV SCH (11:31)
[2018-11-09 12:01] LABS: CLARITY,URINE CLEAR (Clear); COLOR,URINE STRAW (Yellow); GLUCOSE, URINE NEGATIVE (Neg); KETONES,URINE NEGATIVE (Neg); LEUKOCYTE ESTERASE ,URINE NEGATIVE (Neg); NITRITES, URINE NEGATIVE (Neg); OCCULT BLOOD,URINE MODERATE (Neg); PROTEIN,URINE NEGATIVE (Neg); UROBILINOGEN,URINE 0.2 E.U/dL (0.2-1.0)
[2018-11-09 12:27] LABS: UA COLLECTION TYPE CLN CATCH MIDSTREAM
[2018-11-09 12:31] LABS: SQUAMOUS EPITHELIAL CELL,UR FEW /LPF (FEW)
[2018-11-09 12:32] LABS: BACTERIA,URINE FEW /HPF (Neg); WBC,URINE 0-4 /HPF (0-4)
[2018-11-09] MEDS: nicotine 21mg patch - 24 hr TD SCH (12:45)
[2018-11-09 15:00] VITALS: BP 149/83
[2018-11-09] MEDS ORDERED: lisinopril 20mg tablet PO ONE (18:00)
--- NOTE | 2018-11-09 18:15 | NUR ---
Patient in room PCU 3012. I have received report from Mariola AGUILAR and Viridiana AGUILAR and had the opportunity to ask questions and assume patient care.
--- NOTE | 2018-11-09 18:23 | NUR ---
Problems reprioritized. Patient report given, questions answered & plan of care reviewed with LAUREN Odonnell.
--- NOTE | 2018-11-09 18:26 | NUR ---
I have reviewed and agree with all interventions, assessments performed and documented by Mariola AGUILAR.
[2018-11-09 19:00] VITALS: BP 155/76
[2018-11-09] MEDS: insulin glargine (Lantus) pen - multi-dose SQ SCH (21:36)
[2018-11-09 23:00] VITALS: BP 157/95
[2018-11-10] MEDS: ipratropium/albuterol 3ml nebule NEB SCH ×2 (02:07→07:59)
[2018-11-10 03:00] VITALS: BP 161/75
[2018-11-10 04:47] LABS: BASOPHILS % (AUTO) 0 % (0-1); EOSINOPHILS % (AUTO) 0.1 % (0-6); HEMATOCRIT 41.7 % (35.0-45.0); HEMOGLOBIN 13.5 g/dl (12.0-16.0); LYMPHOCYTES # (AUTO) 0.8 X10'3 (1.1-4.8); LYMPHOCYTES % (AUTO) 4.9 % (21-51); MEAN CORPUSCULAR HEMOGLOBIN 30.3 PG (27.0-31.0); MEAN CORPUSCULAR HGB CONC 32.5 g/dL (33.0-36.5); MEAN CORPUSCULAR VOLUME 93.3 FL (78-98); MEAN PLATELET VOLUME 8.2 FL (7.4-10.4); MONOCYTES # (AUTO) 1.2 X10'3 (0-0.9); MONOCYTES % (AUTO) 7.7 % (2-12); NEUTROPHILS # (AUTO) 13.8 X10'3 (1.8-7.7); NEUTROPHILS % (AUTO) 87.3 % (42-75); PLATELET COUNT 214 X10'3 (140-440); RED BLOOD COUNT 4.47 X10'6 (4.20-5.60); RED CELL DISTRIBUTION WIDTH 15.8 % (11.5-14.5); WHITE BLOOD COUNT 15.8 X10'3 (4.5-11.0)
[2018-11-10 05:18] LABS: ALANINE AMINOTRANSFERASE 22 U/L (12-78); ALBUMIN 2.5 G/DL (3.4-5.0); ALKALINE PHOSPHATASE 44 IU/L (46-116); ANION GAP 3 (8-16); ASPARTATE AMINO TRANSFERASE 11 U/L (10-37); BILIRUBIN,TOTAL 0.3 MG/DL (0.1-1.0); BLOOD UREA NITROGEN 33 MG/DL (7-18); BUN/CREATININE RATIO 50.8 (6.6-38.0); CALCIUM 7.9 MG/DL (8.5-10.1); CHLORIDE 100 MMOL/L (99-107); CREATININE 0.65 MG/DL (0.40-0.90); GLUCOSE 88 MG/DL (70-104); MAGNESIUM 1.9 MG/DL (1.5-2.4); PHOSPHORUS 3.4 MG/DL (2.3-4.5); POTASSIUM 4.2 MMOL/L (3.5-5.1); SODIUM 138 MMOL/L (135-145); TOTAL CARBON DIOXIDE 35.2 MMOL/L (24-32); eGFR > 90 ML/MIN
--- NOTE | 2018-11-10 06:29 | NUR ---
Problems reprioritized. Patient report given, questions answered & plan of care reviewed with Guerita AGUILAR.
--- NOTE | 2018-11-10 06:31 | NUR ---
Patient in room PCU 3012. I have received report from LAUREN Odonnell and had the opportunity to ask questions and assume patient care. Patient is currently sleeping in bed, bed locked and low, call light in reach, no acute distress, will continue to monitor.
[2018-11-10 07:14] VITALS: BP 166/87
[2018-11-10] MEDS: budesonide 0.5mg/2ml UD nebule IH SCH (07:59)
[2018-11-10] MEDS ORDERED: docusate sod 100mg capsule PO SCH (08:00)
[2018-11-10] MEDS ORDERED: furosemide 40mg tablet PO SCH (08:00)
[2018-11-10] MEDS ORDERED: lisinopril 20mg tablet PO SCH (08:00)
[2018-11-10] MEDS ORDERED: potassium chloride 10mEq ER tablet PO SCH (08:00)
[2018-11-10] MEDS ORDERED: multivitamins, therapeutics tablet PO SCH (08:00)
[2018-11-10] MEDS ORDERED: potassium chloride 10mEq CAPSULE.SA PO SCH (08:00)
[2018-11-10] MEDS ORDERED: folic acid 1mg tablet PO SCH (08:00)
[2018-11-10] MEDS ORDERED: predniSONE 20 mg tablet PO SCH (08:00)
[2018-11-10] MEDS ORDERED: thiamine 100mg tablet PO SCH (08:00)
[2018-11-10 08:15] VITALS: BP_SYST 142
[2018-11-10] MEDS: pantoprazole 40mg Tablet.DR PO SCH (08:16)
[2018-11-10] MEDS: carVEDilol 12.5mg tablet PO SCH (08:16)
[2018-11-10] MEDS: loratadine 10mg tablet PO SCH (08:17)
[2018-11-10] MEDS: aspirin 81mg tablet.DR PO SCH (08:18)
[2018-11-10] MEDS: calcium carbonate/vitamin D3 tablet PO SCH (08:18)
[2018-11-10] MEDS: lactobacillus rhamnosus 10,000 MMU CELLS/CAPSULE PO SCH (08:18)
[2018-11-10] MEDS: enoxaparin 40mg/0.4ml syringe SQ SCH (08:20)
[2018-11-10] MEDS: CefTRIAXone 2gm/D5W 50ml 50 ML IV SCH (08:20)
[2018-11-10] MEDS: nicotine 21mg patch - 24 hr TD SCH (08:21)
[2018-11-10] MEDS: insulin Lispro (HumaLOG) vial - multi-dose SQ SCH (08:32)
[2018-11-10] MEDS ORDERED: CARV-50 PO (08:57)
[2018-11-10] MEDS ORDERED: PRED20TA PO (08:58)
[2018-11-10] MEDS ORDERED: LISI-600 PO (08:58)
[2018-11-10] MEDS ORDERED: BECL10.62 INH (08:58)
[2018-11-10] MEDS ORDERED: PANT40TA4 PO (08:58)
[2018-11-10] MEDS ORDERED: ASPI-611 PO (08:58)
[2018-11-10] MEDS ORDERED: ALBU8.5H8 INH (08:58)
[2018-11-10] MEDS ORDERED: POTA8TAB8 PO (08:58)
[2018-11-10] MEDS ORDERED: LORA10TA45 PO (08:58)
[2018-11-10] MEDS ORDERED: NICO-687 TD (08:58)
[2018-11-10] MEDS ORDERED: FURO40TA4 PO (08:58)
[2018-11-10] MEDS ORDERED: TIOT4MIS2 INH (08:58)
--- NOTE | 2018-11-10 10:49 | NUR ---
Received order to discharge patient, Patient requested bedside delivery but was unable to wait that long, requested medications be called into [facility], prescriptions were called over at 1050AM. Patient belongings gathered, telemetry removed, IV removed, catheter tip intact, hemostasis acheived, patient stable at time of discharge and able to ambulate independently.
== END 2018-11-10 11:00 | disposition home or self-care (01) | DRG 137 ==
LOC: ER 03:50 → CICU 2S 07:01 → ICU 2S 11-06 00:30 → PCU 3S 11-07 14:40
PROVIDERS: ADMIT Internal Medicine Critical Care Medicine; ATTEND Family Medicine
PROC: 5A1945Z Respiratory Ventilation, 24-96 Consecutive Hours (ICD-10-PCS; principal; 2018-11-02)
PROC: 0BH17EZ Insertion of Endotracheal Airway into Trachea, Via Natural or Artificial Opening (ICD-10-PCS; 2018-11-02)
PROC: B32T1ZZ Computerized Tomography (CT Scan) of Left Pulmonary Artery using Low Osmolar Contrast (ICD-10-PCS; 2018-11-02)
PROC: B3201ZZ Computerized Tomography (CT Scan) of Thoracic Aorta using Low Osmolar Contrast (ICD-10-PCS; 2018-11-02)
PROC: B32S1ZZ Computerized Tomography (CT Scan) of Right Pulmonary Artery using Low Osmolar Contrast (ICD-10-PCS; 2018-11-02)
PROC: 0D9670Z Drainage of Stomach with Drainage Device, Via Natural or Artificial Opening (ICD-10-PCS; 2018-11-02)
PROC: 02HV33Z Insertion of Infusion Device into Superior Vena Cava, Percutaneous Approach (ICD-10-PCS; 2018-11-02)
DX: J69.0 Pneumonitis due to inhalation of food and vomit (principal); J96.01 Acute respiratory failure with hypoxia; J96.02 Acute respiratory failure with hypercapnia; E87.4 Mixed disorder of acid-base balance; J43.9 Emphysema, unspecified; I11.0 Hypertensive heart disease with heart failure; I50.22 Chronic systolic (congestive) heart failure; F15.10 Other stimulant abuse, uncomplicated; F17.210 Nicotine dependence, cigarettes, uncomplicated; D72.823 Leukemoid reaction; F32.9 Major depressive disorder, single episode, unspecified; T38.0X5A Adverse effect of glucocorticoids and synthetic analogues, initial encounter; F12.10 Cannabis abuse, uncomplicated; R00.0 Tachycardia, unspecified; I16.1 Hypertensive emergency; Z59.0 Homelessness; Z79.51 Long term (current) use of inhaled steroids; Z79.899 Other long term (current) drug therapy; Z80.1 Family history of malignant neoplasm of trachea, bronchus and lung; Z80.49 Family history of malignant neoplasm of other genital organs; Z85.118 Personal history of other malignant neoplasm of bronchus and lung; Z85.41 Personal history of malignant neoplasm of cervix uteri; Z79.82 Long term (current) use of aspirin; Z71.6 Tobacco abuse counseling; Y92.89 Other specified places as the place of occurrence of the external cause
CPT/HCPCS: 31500; 36415; 36600; 71045; 71046; 71275; 76937; 80053; 80305; 80320; 81001; 82272; 82803; 82948; 83036; 83605; 83735; 83880; 84100; 84132; 84134; 84145; 84484; 85018; 85025; 85045; 85379; 85384; 85610; 85730; 87040; 87070; 87081; 92508; 92616; 93005; 94002; 94003; 94640; 94760; 96365; 96368; 97161; 97530; 99291; G0378; J0696; J1100; J1650; J1815; J1940; J1956; J2250; J2704; J2920; J2930; J3010; J3360; J3411; J3475; J3480; J3490; J7060; J7512; J7626; Q9967

== ENCOUNTER 2018-11-14 19:20 | Emergency (ER) | payer MEDICAID ==
[~2018-11-14] VITALS: Ht 162.6 cm; Wt 60.5 kg
[~2018-11-14 19:20] MED LIST changes: -AZI25OT PO; -FAMO-128 PO; -FURO20TA4 PO; +FURO40TA4 PO; +LISI-600 PO; -LISI-604 PO; +NICO-687 TD; +PANT40TA4 PO; +PRED20TA PO; +TIOT4MIS2 INH
[2018-11-14 20:16] VITALS: BP 189/92
[2018-11-14] MEDS ORDERED: IBUP-1985 PO (20:40)
[2018-11-14] MEDS ORDERED: CLIN300C70 PO (20:40)
== END 2018-11-14 21:01 | disposition home or self-care (01) ==
LOC: ER 19:20
DX: K08.89 Other specified disorders of teeth and supporting structures (principal); I10 Essential (primary) hypertension; J44.9 Chronic obstructive pulmonary disease, unspecified; F17.200 Nicotine dependence, unspecified, uncomplicated; F12.90 Cannabis use, unspecified, uncomplicated; F15.90 Other stimulant use, unspecified, uncomplicated; Z59.0 Homelessness; Z79.82 Long term (current) use of aspirin; Z79.2 Long term (current) use of antibiotics; Z79.899 Other long term (current) drug therapy
CPT/HCPCS: 99283

== ENCOUNTER 2019-01-28 08:09 | Inpatient (IN) | payer MEDICAID ==
[~2019-01-28] VITALS: Ht 162.6 cm; Wt 59.4 kg
--- NOTE | 2019-01-28 | NUR ---
In room with patient's primary RN over concerns of patient's BP and work of breathing. Primary RN spoke to MD regarding continued high BP in the 180s/110s and expressed the concerns about patient's breathing and MD ordered to do a repeat ABG if it had been 2 hours after the previous blood gas and continue to increase the Nitro to 25mcg Addendum: 01/29/19 at 0149 by Brooke Willson RN incorrect time
[~2019-01-28 08:09] MED LIST changes: +IBUP-1985 PO
[2019-01-28] MEDS ORDERED: normal saline 1000ML IV soln IVB ONE (08:40)
[2019-01-28] MEDS ORDERED: albuterol 2.5 MG/3 ML nebule CONTNEB PRN (09:05)
[2019-01-28] MEDS ORDERED: ibuprofen tablet 400 MG TABLET PO ONE (09:05)
--- NOTE | 2019-01-28 09:30 | NUR ---
Lab attempted to draw approx. 3 times without success. Lab draw was attempted on the feet with verbal ok by linda MORGAN.
[2019-01-28 09:39] LABS: BASOPHILS % (AUTO) 0.1 % (0-1); EOSINOPHILS % (AUTO) 0.2 % (0-6); HEMATOCRIT 44.9 % (35.0-45.0); LYMPHOCYTES # (AUTO) 0.6 X10'3 (1.1-4.8); LYMPHOCYTES % (AUTO) 6.4 % (21-51); MEAN CORPUSCULAR HEMOGLOBIN 32.1 PG (27.0-31.0); MEAN CORPUSCULAR HGB CONC 33.3 g/dL (33.0-36.5); MEAN CORPUSCULAR VOLUME 96.1 FL (78-98); MEAN PLATELET VOLUME 8.6 FL (7.4-10.4); MONOCYTES # (AUTO) 1.2 X10'3 (0-0.9); MONOCYTES % (AUTO) 13.7 % (2-12); NEUTROPHILS # (AUTO) 7.2 X10'3 (1.8-7.7); NEUTROPHILS % (AUTO) 79.6 % (42-75); PLATELET COUNT 212 X10'3 (140-440); RED BLOOD COUNT 4.67 X10'6 (4.20-5.60)
--- NOTE | 2019-01-28 09:45 | NUR ---
Renu Bhatia RN attempted to draw blood from patient x3 unsuccessful attempts.
--- NOTE | 2019-01-28 10:05 | NUR ---
I have reviewed and agree with all medications administered and interventions performed by SKIDWAY WORKER Student Carlos Gauthier.
[2019-01-28 10:40] LABS: CLARITY,URINE CLEAR (Clear); COLOR,URINE YELLOW (Yellow); GLUCOSE, URINE NEGATIVE (Neg); KETONES,URINE NEGATIVE (Neg); LEUKOCYTE ESTERASE ,URINE NEGATIVE (Neg); NITRITES, URINE NEGATIVE (Neg); OCCULT BLOOD,URINE NEGATIVE (Neg); PH,URINE 6.5 (4.8-8.0); PROTEIN,URINE NEGATIVE (Neg); UROBILINOGEN,URINE 0.2 E.U/dL (0.2-1.0)
[2019-01-28 10:41] LABS: UA COLLECTION TYPE STRAIGHT CATH
--- NOTE | 2019-01-28 11:16 | NUR ---
Ophelia AGUILAR attempting to draw blood at this time.
[2019-01-28 12:34] LABS: ALANINE AMINOTRANSFERASE 26 U/L (12-78); ALBUMIN 2.9 G/DL (3.4-5.0); ALBUMIN/GLOBULIN RATIO 0.7 (1.1-1.5); ALKALINE PHOSPHATASE 136 IU/L (46-116); ANION GAP 7 (8-16); ASPARTATE AMINO TRANSFERASE 23 U/L (10-37); BILIRUBIN,TOTAL 0.4 MG/DL (0.1-1.0); BLOOD UREA NITROGEN 9 MG/DL (7-18); CALCIUM 8.3 MG/DL (8.5-10.1); CHLORIDE 106 MMOL/L (99-107); GLUCOSE 102 MG/DL (70-104); SODIUM 143 MMOL/L (135-145); TOTAL CARBON DIOXIDE 29.8 MMOL/L (24-32); TOTAL PROTEIN 6.8 G/DL (6.4-8.2); eGFR > 90 ML/MIN
[2019-01-28] MEDS ORDERED: azithromycin 250mg tablet PO ONE (12:45)
[2019-01-28] MEDS ORDERED: methylPREDNISolone sod succ 125mg/2ml vial IV ONE (12:45)
--- NOTE | 2019-01-28 12:46 | NUR ---
pt states, i cant breathe, rr 34, pt anxious, lungs wheezing right upper quad, and slight insp whz. informed johanna loredo. please see new orders.
[2019-01-28] MEDS ORDERED: LORazepam 2 mg/ml vial IV ONE ×2 (12:50→16:20)
[2019-01-28] MEDS ORDERED: ipratropium/albuterol 3ml nebule NEB ONE (13:15)
[2019-01-28 14:01] LABS: ABG BASE EXCESS -4.7 mmol/L (-2.0-3.0); ABG HCO3 24.3 mmol/L (22.0-26.0); ABG OXYGEN SATURATION 91.2 % (95-98); ABG PCO2 (T) 61.4 mmHg (35.0-45.0); ABG PH (T) 7.215 (7.350-7.450); ABG PO2 (T) 72.4 mmHg (83-108); ALLEN'S TEST Positive; FCOHb 0.7 % (0.5-1.5); FLOW 3 L/min; FMetHb 0.2 % (0.3-1.12); FO2Hb 90.4 % (94-100); RESPIRATORY RATE 30 b/min; TOTAL HEMOGLOBIN 15.1 G/dl (12.0-16.0)
--- NOTE | 2019-01-28 16:04 | NUR ---
Paged RT for ABG.
[2019-01-28 16:21] LABS: ABG BASE EXCESS -4.1 mmol/L (-2.0-3.0); ABG HCO3 24.4 mmol/L (22.0-26.0); ABG PCO2 (T) 53.9 mmHg (35.0-45.0); ABG PH (T) 7.263 (7.350-7.450); ABG PO2 (T) 180.8 mmHg (83-108); ALLEN'S TEST Positive; FCOHb 1.1 % (0.5-1.5); FMetHb 0.3 % (0.3-1.12); FO2Hb 97.6 % (94-100); MINUTE VOLUME 14 L/min; RESPIRATORY RATE 16 b/min; TOTAL HEMOGLOBIN 14.9 G/dl (12.0-16.0)
[2019-01-28] MEDS ORDERED: nitroGLYCERIN-Tridil 50MG/D5W 250 ML IV PRN (16:51)
[2019-01-28] MEDS ORDERED: magnesium 2GM in 50ml NS 50 ML IV ONE (16:55)
[2019-01-28] MEDS ORDERED: PANT40TA4 PO (17:02)
[2019-01-28] MEDS ORDERED: LORA10TA7 PO (17:02)
[2019-01-28] MEDS ORDERED: LISI40TA4 PO (17:02)
[2019-01-28] MEDS ORDERED: TIOT4MIS5 IH (17:02)
[2019-01-28] MEDS ORDERED: ALBU17AE26 IH (17:16)
[2019-01-28] MEDS ORDERED: POTA-82 PO (17:16)
[2019-01-28] MEDS ORDERED: FURO20TA4 PO (17:16)
[2019-01-28] MEDS ORDERED: CARV25TA PO (17:16)
[2019-01-28] MEDS ORDERED: CYCL10TA26 PO (17:16)
--- NOTE | 2019-01-28 17:32 | NUR ---
Spoke with Dr. sharpe regarding patients magnesium 2 g infusion for SOB. He stated to run medication over half an hour instead of 2 hour per order.
--- NOTE | 2019-01-28 17:50 | NUR ---
Dr. sharpe gave verbal order increase nitro drip to 40 mcg/min.
--- NOTE | 2019-01-28 19:25 | NUR ---
dr jones reports he wants me to begin decreasing the nitro gtt (curretnly running at 45 mcg/min). he is still evaluating what service pt to be admitted to . pt currently appears to be sleeping, easily awakens breifly, with light shake and voice. will open her eyes then back to sleep, but will follow simple command (turn your head, rais your hand). remains on bipap 15/5, 35%. bp 162/72.
[2019-01-28 20:05] LABS: ABG BASE EXCESS -3.8 mmol/L (-2.0-3.0); ABG HCO3 22.6 mmol/L (22.0-26.0); ABG OXYGEN SATURATION 95.9 % (95-98); ABG PH (T) 7.309 (7.350-7.450); ABG PO2 (T) 93.6 mmHg (83-108); ALLEN'S TEST Positive; FCOHb 0.6 % (0.5-1.5); FMetHb 0.2 % (0.3-1.12); FO2Hb 95.1 % (94-100); RESPIRATORY RATE 20 b/min; RESPIRATORY RATE (OBSERVED) 26 b/min; TOTAL HEMOGLOBIN 13.7 G/dl (12.0-16.0)
[2019-01-28] MEDS ORDERED: magnesium Cl slow-release 64mg tablet PO PRN (20:40)
[2019-01-28] MEDS ORDERED: magnesium 4gm in 100ml NS 100 ML IV PRN (20:40)
[2019-01-28] MEDS ORDERED: potassium Cl 20 mEq SR tablet PO PRN ×2 (20:40)
[2019-01-28] MEDS ORDERED: ipratropium/albuterol 3ml nebule NEB PRN (20:40)
[2019-01-28] MEDS ORDERED: magnesium 2GM in 50ml NS 50 ML IV PRN (20:40)
[2019-01-28] MEDS ORDERED: acetaminophen 325mg tablet PO PRN ×2 (20:40)
[2019-01-28] MEDS ORDERED: potassium CL 10mEq/100ml bag 100 ML IV PRN ×2 (20:40)
[2019-01-28] MEDS ORDERED: ondansetron/PF 4mg/2ml inj IV PRN (20:40)
[2019-01-28] MEDS: normal saline 1000ml 1,000 ML IV SCH (21:32)
--- NOTE | 2019-01-28 21:33 | NUR ---
nitro gtt infusing at 30 mcg/min
--- NOTE | 2019-01-28 22:42 | NUR ---
Pt with room assignment, 3023a. Per supervisor fusing room PCU, RN unavailable at this time to take report and will call back shortly. Pt with stable vs and has been off ntg gtt for past hr. bp 156/97. RT reports pt to continue on bipap , even with transport as she remains uncorrected.
--- NOTE | 2019-01-28 23:18 | NUR ---
Patient in room ICU 2039. I have received report from Юлия AGUILAR ER and had the opportunity to ask questions and assume patient care.
--- NOTE | 2019-01-28 23:20 | NUR ---
pt arrived to unit with all belongings on bipap and nitro drip, pt is tripoding and apears to be working hard to breath. pt is on mobile and has call light in reach, pt does not apear to be fully aware of her suroundings attempted to reorient multiple times. will continue to monitor.
--- NOTE | 2019-01-28 23:21 | NUR ---
REPORT CALLED TO PCU. PTS BP 188/107 JUST PRIOR TO TAKING UPSTAIRS. DR. MARIN UPDATED AND VERBAL RECEIVED TO RESTART NITRO GTT AT PCU STANDARD ORDER SET
[2019-01-28] MEDS: nitroGLYCERIN-Tridil 50MG/D5W 250 ML IV SCH (23:23)
[2019-01-28 23:30] VITALS: BP 216/100
--- NOTE | 2019-01-28 23:30 | NUR ---
Spoke to Dr. Martinez regarding patient's BP being 200s/100s despite Nitro drip being resumed at 10mcg/min. MD stated to go ahead and increase the drip to 20mcg and to call her patient's BP doesn't respond.
[2019-01-28 23:45] VITALS: BP 195/114
[2019-01-29] VITALS (30 sets, daily range): BP systolic 116–200; BP diastolic 56–114
--- NOTE | 2019-01-29 | NUR ---
In room with patient's primary RN over concerns of patient's BP and work of breathing. Primary RN spoke to MD regarding continued high BP in the 180s/110s and expressed the concerns about patient's breathing and MD ordered to do a repeat ABG if it had been 2 hours after the previous blood gas and continue to increase the Nitro to 25mcg
[2019-01-29 00:56] LABS: ABG BASE EXCESS 0.8 mmol/L (-2.0-3.0); ABG HCO3 28.9 mmol/L (22.0-26.0); ABG OXYGEN SATURATION 95.2 % (95-98); ABG PCO2 (T) 60.8 mmHg (35.0-45.0); ABG PH (T) 7.295 (7.350-7.450); ABG PO2 (T) 82.3 mmHg (83-108); ALLEN'S TEST Positive; FMetHb 0.1 % (0.3-1.12); FO2Hb 95.1 % (94-100); MINUTE VOLUME 19 L/min; PATIENT TEMPERATURE 36.8; RESPIRATORY RATE 20 b/min; RESPIRATORY RATE (OBSERVED) 29 b/min; TOTAL HEMOGLOBIN 14.7 G/dl (12.0-16.0)
[2019-01-29] MEDS ORDERED: labetalol 20mg/4ml (5mg/ml) syringe IV ONE (01:35)
--- NOTE | 2019-01-29 01:43 | NUR ---
I have received report from Feliz RN, and had the opportunity to ask questions.
--- NOTE | 2019-01-29 01:46 | NUR ---
Problems reprioritized. Patient report given, questions answered & plan of care reviewed with Ronda AGUILAR ICU.
[2019-01-29] MEDS: ipratropium/albuterol 3ml nebule NEB PRN ×3 (02:16→17:25)
--- NOTE | 2019-01-29 02:45 | NUR ---
PT arrived to unit via hospital bed from PCU. PT transferred to bed and placed on bedside monitor. PT arrived on Bipap, tolerating well, O2 sat >95%. PT was hypertensive with SBP in 190's, PT arrived with Nitro running @ 30mcg. Order for Labetalol noted and will administer. PT was soaked in urine, personal hygiene performed, new gown placed. Order received for Martinez placement. PT has PIV x2. Bed is locked and low. Call light is within reach. Will continue to monitor.
--- NOTE | 2019-01-29 05:00 | NUR ---
IVP Labetalol effective. LOLY Purvis called and updated on PT status. Order received to re-start home BP meds. Will continue to monitor.
[2019-01-29 06:23] LABS: BASOPHILS % (AUTO) 0.1 % (0-1); EOSINOPHILS % (AUTO) 0 % (0-6); HEMATOCRIT 43.1 % (35.0-45.0); HEMOGLOBIN 14.2 g/dl (12.0-16.0); LYMPHOCYTES # (AUTO) 0.5 X10'3 (1.1-4.8); LYMPHOCYTES % (AUTO) 5.7 % (21-51); MEAN CORPUSCULAR HEMOGLOBIN 31.9 PG (27.0-31.0); MEAN CORPUSCULAR VOLUME 96.4 FL (78-98); MEAN PLATELET VOLUME 8.7 FL (7.4-10.4); MONOCYTES # (AUTO) 1.1 X10'3 (0-0.9); MONOCYTES % (AUTO) 11.5 % (2-12); NEUTROPHILS # (AUTO) 7.8 X10'3 (1.8-7.7); NEUTROPHILS % (AUTO) 82.7 % (42-75); PLATELET COUNT 255 X10'3 (140-440); RED BLOOD COUNT 4.47 X10'6 (4.20-5.60); RED CELL DISTRIBUTION WIDTH 14.1 % (11.5-14.5); WHITE BLOOD COUNT 9.4 X10'3 (4.5-11.0)
[2019-01-29 06:41] LABS: ALANINE AMINOTRANSFERASE 25 U/L (12-78); ALBUMIN 2.9 G/DL (3.4-5.0); ALBUMIN/GLOBULIN RATIO 0.7 (1.1-1.5); ALKALINE PHOSPHATASE 132 IU/L (46-116); ANION GAP 9 (8-16); ASPARTATE AMINO TRANSFERASE 16 U/L (10-37); BILIRUBIN,TOTAL 0.2 MG/DL (0.1-1.0); BLOOD UREA NITROGEN 15 MG/DL (7-18); BUN/CREATININE RATIO 21.7 (6.6-38.0); CALCIUM 9.1 MG/DL (8.5-10.1); CHLORIDE 106 MMOL/L (99-107); CREATININE 0.69 MG/DL (0.40-0.90); GLUCOSE 117 MG/DL (70-104); MAGNESIUM 2.3 MG/DL (1.5-2.4); POTASSIUM 4.4 MMOL/L (3.5-5.1); SODIUM 144 MMOL/L (135-145); TOTAL CARBON DIOXIDE 28.7 MMOL/L (24-32); TOTAL PROTEIN 7.1 G/DL (6.4-8.2); eGFR 89 ML/MIN
--- NOTE | 2019-01-29 06:46 | NUR ---
Problems reprioritized. Patient report given, questions answered & plan of care reviewed with Stacy AGUILAR.
[2019-01-29] MEDS: K and/or MAG REPLACEMENT MC SCH (08:00)
[2019-01-29 08:21] LABS: HEMOGLOBIN A1C 6.1 % (4.5-6.2)
[2019-01-29] MEDS: carVEDilol 12.5mg tablet PO SCH ×2 (08:23→20:18)
[2019-01-29] MEDS: lisinopril 20mg tablet PO SCH (08:23)
[2019-01-29] MEDS: furosemide 20MG tablet PO SCH (08:23)
[2019-01-29] MEDS: pantoprazole 40mg Tablet.DR PO SCH (08:23)
[2019-01-29] MEDS: heparin, porcine 5000 units/ml vial SQ SCH ×2 (08:24→20:15)
[2019-01-29] MEDS: methylPREDNISolone sod succ 125mg/2ml vial IV SCH ×2 (08:25→20:16)
[2019-01-29] MEDS: azithromycin/NS 500mg/250ml 250 ML IV SCH (08:25)
[2019-01-29] MEDS: CefTRIAXone/D5W-Rocephin 1gm 50 ML IV SCH (08:26)
--- NOTE | 2019-01-29 10:05 | NUR ---
Patient with low Margarito of 12. Per physical assessment pt with no edema or wounds. No nutrition intervention warranted at this time. Will continue to follow. Addendum: 01/29/19 at [address] Amended: Links added.
[2019-01-29 12:36] LABS: ABG BASE EXCESS 2.9 mmol/L (-2.0-3.0); ABG HCO3 31.4 mmol/L (22.0-26.0); ABG OXYGEN SATURATION 96.9 % (95-98); ABG PCO2 (T) 66.7 mmHg (35.0-45.0); ABG PO2 (T) 99.9 mmHg (83-108); ALLEN'S TEST Positive; FCOHb 0.3 % (0.5-1.5); FMetHb 0.1 % (0.3-1.12); FO2Hb 96.5 % (94-100); MINUTE VOLUME 16 L/min; PEEP 5 cm H2O; RESPIRATORY RATE 20 b/min; RESPIRATORY RATE (OBSERVED) 28 b/min; TOTAL HEMOGLOBIN 13.3 G/dl (12.0-16.0)
--- NOTE | 2019-01-29 12:53 | NUR ---
NO MRI!!!! [employer] pacemaker not MRI compatible
[2019-01-29] MEDS: labetalol 100mg tablet PO PRN (16:57)
[2019-01-29 17:16] LABS: ABG BASE EXCESS 4.2 mmol/L (-2.0-3.0); ABG HCO3 31.4 mmol/L (22.0-26.0); ABG PCO2 (T) 58.5 mmHg (35.0-45.0); ABG PH (T) 7.348 (7.350-7.450); ABG PO2 (T) 68.2 mmHg (83-108); ALLEN'S TEST Positive; FCOHb 0.7 % (0.5-1.5); FMetHb 0.2 % (0.3-1.12); FO2Hb 92.2 % (94-100); MINUTE VOLUME 15 L/min; RESPIRATORY RATE 20 b/min; RESPIRATORY RATE (OBSERVED) 21 b/min; TOTAL HEMOGLOBIN 13.8 G/dl (12.0-16.0)
--- NOTE | 2019-01-29 18:23 | NUR ---
Patient in room ICU 2039. I have received report from LAUREN Valdez and had the opportunity to ask questions and assume patient care.
--- NOTE | 2019-01-29 20:15 | NUR ---
Patient refused bed bath and stated, "How about you just leave me alone."
[2019-01-30] VITALS (19 sets, daily range): BP systolic 103–201; BP diastolic 60–127
[2019-01-30] MEDS: nitroGLYCERIN-Tridil 50MG/D5W 250 ML IV SCH (03:55)
[2019-01-30] MEDS: labetalol 100mg tablet PO PRN ×3 (05:16→23:09)
[2019-01-30 05:24] LABS: BASOPHILS % (AUTO) 0.2 % (0-1); EOSINOPHILS % (AUTO) 0 % (0-6); HEMATOCRIT 41.6 % (35.0-45.0); HEMOGLOBIN 13.5 g/dl (12.0-16.0); LYMPHOCYTES # (AUTO) 0.5 X10'3 (1.1-4.8); LYMPHOCYTES % (AUTO) 6.4 % (21-51); MEAN CORPUSCULAR HEMOGLOBIN 31.2 PG (27.0-31.0); MEAN CORPUSCULAR HGB CONC 32.5 g/dL (33.0-36.5); MEAN CORPUSCULAR VOLUME 96.2 FL (78-98); MEAN PLATELET VOLUME 8.7 FL (7.4-10.4); MONOCYTES # (AUTO) 0.6 X10'3 (0-0.9); MONOCYTES % (AUTO) 7.8 % (2-12); NEUTROPHILS # (AUTO) 6.3 X10'3 (1.8-7.7); NEUTROPHILS % (AUTO) 85.6 % (42-75); PLATELET COUNT 240 X10'3 (140-440); RED BLOOD COUNT 4.33 X10'6 (4.20-5.60); RED CELL DISTRIBUTION WIDTH 14.2 % (11.5-14.5); WHITE BLOOD COUNT 7.4 X10'3 (4.5-11.0)
[2019-01-30 05:42] LABS: ALANINE AMINOTRANSFERASE 25 U/L (12-78); ALBUMIN 2.6 G/DL (3.4-5.0); ALBUMIN/GLOBULIN RATIO 0.7 (1.1-1.5); ALKALINE PHOSPHATASE 107 IU/L (46-116); ANION GAP 5 (8-16); ASPARTATE AMINO TRANSFERASE 10 U/L (10-37); BILIRUBIN,TOTAL 0.2 MG/DL (0.1-1.0); BLOOD UREA NITROGEN 22 MG/DL (7-18); BUN/CREATININE RATIO 25.6 (6.6-38.0); CALCIUM 9.1 MG/DL (8.5-10.1); CHLORIDE 105 MMOL/L (99-107); CREATININE 0.86 MG/DL (0.40-0.90); GLUCOSE 177 MG/DL (70-104); MAGNESIUM 2.2 MG/DL (1.5-2.4); POTASSIUM 4.8 MMOL/L (3.5-5.1); SODIUM 141 MMOL/L (135-145); TOTAL CARBON DIOXIDE 31.5 MMOL/L (24-32); TOTAL PROTEIN 6.6 G/DL (6.4-8.2); eGFR 69 ML/MIN
--- NOTE | 2019-01-30 06:32 | NUR ---
Problems reprioritized. Patient report given, questions answered & plan of care reviewed with Chana RN and LAUREN Sears.
--- NOTE | 2019-01-30 06:36 | NUR ---
Patient in room ICU 2039. I have received report from Stacy AGUILAR and had the opportunity to ask questions and assume patient care. Patient laying in bed with eyes closed, with bipap on, at 25% fio2 sating 95-97%, R and L PIV saline locked, merritt to gravity. Vital signs stable will continue to monitor.
--- NOTE | 2019-01-30 06:40 | NUR ---
Patient in room ICU 2039. I have received report from Stacy AGUILAR and had the opportunity to ask questions and assume patient care with Chana Hamlin Addendum: 01/30/19 at 0641 by Renu Meneses RN Amended: Links added.
[2019-01-30] MEDS: furosemide 20MG tablet PO SCH (07:48)
[2019-01-30] MEDS: carVEDilol 12.5mg tablet PO SCH ×2 (07:48→20:52)
[2019-01-30] MEDS: lisinopril 20mg tablet PO SCH (07:48)
[2019-01-30] MEDS: pantoprazole 40mg Tablet.DR PO SCH (07:48)
[2019-01-30] MEDS: heparin, porcine 5000 units/ml vial SQ SCH ×2 (07:49→20:53)
[2019-01-30] MEDS: methylPREDNISolone sod succ 125mg/2ml vial IV SCH (07:49)
[2019-01-30] MEDS: CefTRIAXone/D5W-Rocephin 1gm 50 ML IV SCH (07:49)
[2019-01-30] MEDS: K and/or MAG REPLACEMENT MC SCH (07:58)
[2019-01-30] MEDS: azithromycin/NS 500mg/250ml 250 ML IV SCH (08:00)
--- NOTE | 2019-01-30 08:38 | NUR ---
Dr. Stocktno here. Orders received to transfer pt. to floor without tele and to dc bipap.
[2019-01-30] MEDS ORDERED: cyclobenzaprine 10mg tablet PO PRN (08:40)
[2019-01-30] MEDS ORDERED: ipratropium 0.5 MG/2.5ML nebule IH PRN (08:50)
[2019-01-30] MEDS: vancomycin/NS 1 GM ADD-VANTAGE 250 ML IV SCH ×2 (09:16→20:53)
--- NOTE | 2019-01-30 09:20 | NUR ---
Per Dr. Stockton, d/c bipap, solumedrol, Rocephin, Clindamycin and start vanco and albuterol. Also stated to transfer her to PCU with no tele. Asked about starting hyerp/hypoglycemic protocol. He stated no, as she has no history of DM and her elevated BS are due to the solumedrol which is now D/c'ed
--- NOTE | 2019-01-30 09:34 | NUR ---
Pt. A&O to self, place and events. Unsure of date. Pt. observed to be talking to herself periodically.
[2019-01-30] MEDS: ipratropium/albuterol 3ml nebule NEB PRN ×2 (09:56→23:51)
--- NOTE | 2019-01-30 13:14 | NUR ---
RN called to give report to Francisca AGUILAR but she is unable to receive report at this time.
[2019-01-30] MEDS: nicotine 14mg patch - 24hr TD SCH (13:23)
--- NOTE | 2019-01-30 13:24 | NUR ---
RN called for Nicotine patch order. Order received. Patch placed on pt. per her request.
--- NOTE | 2019-01-30 14:25 | NUR ---
recieved pt report from Renu AGUILAR ICU, had the oportunity to ask questions. pt is stable and maintaining O2 sat on 1L NC, prn medications ordered for HTN, will hand off report to day nurse micah AGUILAR.
--- NOTE | 2019-01-30 14:30 | NUR ---
RN called and gave report to Feliz Rodriguez RN. Pt. transferred to 3023A via wheelchair with all belongings, including chart, in stable condition.
--- NOTE | 2019-01-30 14:30 | NUR ---
pt arrived to room 3023A with all belongings via wheelchair, oriented pt to room, VS stable (BP is high day nurse will give PRN).
--- NOTE | 2019-01-30 18:15 | NUR ---
Problems reprioritized. Patient report given, questions answered & plan of care reviewed with Lucia AGUILAR. Patient stable at time of transfer of care.
--- NOTE | 2019-01-30 18:32 | NUR ---
Patient in room PCU 3023. I have received report from Francisca AGUILAR and had the opportunity to ask questions and assume patient care.
[2019-01-30] MEDS ORDERED: carVEDilol 12.5mg tablet PO SCH (20:00)
[2019-01-30] MEDS: lactobacillus rhamnosus 10,000 MMU CELLS/CAPSULE PO SCH (20:52)
[2019-01-30] MEDS: normal saline 1000ml 1,000 ML IV SCH (20:53)
--- NOTE | 2019-01-30 22:20 | NUR ---
Yaniv notified that patient's blood sugar is 245 but she does not have the hyperglycemia protocol ordered and has not been receiving blood sugar treatment so far and Solumedrol was discontinued today. No new orders received and will just monitor how patient continues to do off of the Solumedrol before starting hyperglycemic protocol.
--- NOTE | 2019-01-30 23:01 | NUR ---
Patient's blood pressure 201/127 to right arm with a repeat of 196/108 on left arm. Yaniv notified. Will give the PRN PO Labetalol and reassess. No new orders at this time.
[2019-01-30] MEDS: benzonatate 100mg capsule PO PRN (23:09)
[2019-01-31 02:00] VITALS: BP 172/94
[2019-01-31 05:42] LABS: BASOPHILS % (AUTO) 0.3 % (0-1); EOSINOPHILS % (AUTO) 0 % (0-6); HEMATOCRIT 36.8 % (35.0-45.0); HEMOGLOBIN 12.3 g/dl (12.0-16.0); LYMPHOCYTES # (AUTO) 0.9 X10'3 (1.1-4.8); LYMPHOCYTES % (AUTO) 7.9 % (21-51); MEAN CORPUSCULAR HEMOGLOBIN 31.7 PG (27.0-31.0); MEAN CORPUSCULAR HGB CONC 33.5 g/dL (33.0-36.5); MEAN CORPUSCULAR VOLUME 94.5 FL (78-98); MONOCYTES # (AUTO) 1.2 X10'3 (0-0.9); MONOCYTES % (AUTO) 10.9 % (2-12); NEUTROPHILS # (AUTO) 9.2 X10'3 (1.8-7.7); NEUTROPHILS % (AUTO) 80.9 % (42-75); PLATELET COUNT 234 X10'3 (140-440); RED BLOOD COUNT 3.89 X10'6 (4.20-5.60); RED CELL DISTRIBUTION WIDTH 13.9 % (11.5-14.5); WHITE BLOOD COUNT 11.4 X10'3 (4.5-11.0)
[2019-01-31 05:55] LABS: ALANINE AMINOTRANSFERASE 21 U/L (12-78); ALBUMIN 2.7 G/DL (3.4-5.0); ALBUMIN/GLOBULIN RATIO 0.8 (1.1-1.5); ALKALINE PHOSPHATASE 91 IU/L (46-116); ANION GAP 4 (8-16); ASPARTATE AMINO TRANSFERASE 12 U/L (10-37); BILIRUBIN,TOTAL 0.2 MG/DL (0.1-1.0); BLOOD UREA NITROGEN 27 MG/DL (7-18); BUN/CREATININE RATIO 35.5 (6.6-38.0); CALCIUM 8.9 MG/DL (8.5-10.1); CHLORIDE 104 MMOL/L (99-107); CREATININE 0.76 MG/DL (0.40-0.90); GLUCOSE 118 MG/DL (70-104); MAGNESIUM 2.1 MG/DL (1.5-2.4); POTASSIUM 4.4 MMOL/L (3.5-5.1); SODIUM 141 MMOL/L (135-145); TOTAL CARBON DIOXIDE 32.7 MMOL/L (24-32); TOTAL PROTEIN 6.1 G/DL (6.4-8.2); eGFR 80 ML/MIN
--- NOTE | 2019-01-31 06:15 | NUR ---
Patient in room PCU 3023. I have received report from LAUREN Myers and had the opportunity to ask questions and assume patient care.
--- NOTE | 2019-01-31 06:28 | NUR ---
Problems reprioritized. Patient report given, questions answered & plan of care reviewed with Mariola AGUILAR.
[2019-01-31 07:06] VITALS: BP 181/91
[2019-01-31] MEDS ORDERED: furosemide 20MG tablet PO SCH (08:00)
[2019-01-31] MEDS ORDERED: non-formulary drug (Lisinopril* 1 TAB) PO SCH (08:00)
[2019-01-31] MEDS ORDERED: pantoprazole 40mg Tablet.DR PO SCH (08:00)
[2019-01-31] MEDS: K and/or MAG REPLACEMENT MC SCH (08:00)
[2019-01-31] MEDS: nicotine 14mg patch - 24hr TD SCH (08:31)
[2019-01-31] MEDS: carVEDilol 12.5mg tablet PO SCH ×2 (08:32→21:12)
[2019-01-31] MEDS: lisinopril 20mg tablet PO SCH (08:32)
[2019-01-31] MEDS: pantoprazole 40mg Tablet.DR PO SCH (08:32)
[2019-01-31] MEDS: heparin, porcine 5000 units/ml vial SQ SCH ×2 (08:32→21:14)
[2019-01-31] MEDS: vancomycin/NS 1 GM ADD-VANTAGE 250 ML IV SCH ×2 (08:33→21:14)
[2019-01-31] MEDS: lactobacillus rhamnosus 10,000 MMU CELLS/CAPSULE PO SCH ×2 (08:33→21:12)
[2019-01-31] MEDS: potassium chloride 8mEq ER tablet PO SCH (08:33)
[2019-01-31] MEDS: loratadine 10mg tablet PO SCH (08:33)
[2019-01-31] MEDS: furosemide 20MG tablet PO SCH (08:33)
--- NOTE | 2019-01-31 10:01 | NUR ---
Dr. Stockton at bedside, new orders to d/c nitro drip and [facility].
[2019-01-31 11:00] VITALS: BP 155/92
[2019-01-31] MEDS: ipratropium/albuterol 3ml nebule NEB PRN ×3 (11:23→21:28)
--- NOTE | 2019-01-31 14:08 | NUR ---
Paged Dr. Auguste regarding anxiety medication for patient. PAGER ID: [phone] MESSAGE: [phone] Aixa Kurtz: Pt is having increased anxiety and is requesting rx to relax. Please advise. Thanks, Mariola [phone]
[2019-01-31 15:00] VITALS: BP 204/108
--- NOTE | 2019-01-31 15:23 | NUR ---
Page sent to Dr. Auguste regarding patients blood pressure PAGER ID: [phone] MESSAGE: [phone] [id number] JerardoAixa: Pt's blood pressure is 212/118 at this time. Also, she is having increased anxiety, no medications ordered for this,. Please advise. Monica x [phone]
[2019-01-31] MEDS: labetalol 100mg tablet PO PRN ×2 (15:33→23:18)
[2019-01-31 18:00] VITALS: BP 170/85
--- NOTE | 2019-01-31 18:38 | NUR ---
Problems reprioritized. Patient report given, questions answered & plan of care reviewed with LAUREN Myers.
[2019-01-31] MEDS ORDERED: VANCOMYCIN LEVEL IV ONE (20:30)
[2019-01-31] MEDS: benzonatate 100mg capsule PO PRN (21:24)
[2019-01-31 22:00] VITALS: BP 197/112
[2019-02-01] VITALS (7 sets, daily range): BP systolic 161–212; BP diastolic 71–95
--- NOTE | 2019-02-01 03:10 | NUR ---
Juan Jose Purvis notified that PRN Labetalol brought patient's blood pressure down from 197/112 top 182/95 but she does not have anything else to give so he ordered Hydralazine 10mg IVP Q4H PRN for SBP >180.
[2019-02-01] MEDS: hydrALAZINE 20mg/ml inj. IV PRN ×2 (03:29→22:33)
[2019-02-01 05:02] LABS: BASOPHILS % (AUTO) 0.2 % (0-1); EOSINOPHILS # (AUTO) 0.1 X10'3 (0-0.9); EOSINOPHILS % (AUTO) 1.1 % (0-6); HEMATOCRIT 39.6 % (35.0-45.0); LYMPHOCYTES # (AUTO) 0.8 X10'3 (1.1-4.8); LYMPHOCYTES % (AUTO) 6.8 % (21-51); MEAN CORPUSCULAR HEMOGLOBIN 31.2 PG (27.0-31.0); MEAN CORPUSCULAR HGB CONC 32.9 g/dL (33.0-36.5); MEAN CORPUSCULAR VOLUME 94.8 FL (78-98); MEAN PLATELET VOLUME 7.9 FL (7.4-10.4); MONOCYTES # (AUTO) 1.1 X10'3 (0-0.9); MONOCYTES % (AUTO) 9.3 % (2-12); NEUTROPHILS # (AUTO) 9.6 X10'3 (1.8-7.7); NEUTROPHILS % (AUTO) 82.6 % (42-75); PLATELET COUNT 245 X10'3 (140-440); RED BLOOD COUNT 4.17 X10'6 (4.20-5.60); RED CELL DISTRIBUTION WIDTH 13.9 % (11.5-14.5); WHITE BLOOD COUNT 11.6 X10'3 (4.5-11.0)
[2019-02-01 05:33] LABS: ALANINE AMINOTRANSFERASE 29 U/L (12-78); ALBUMIN 2.9 G/DL (3.4-5.0); ALBUMIN/GLOBULIN RATIO 0.8 (1.1-1.5); ALKALINE PHOSPHATASE 95 IU/L (46-116); ANION GAP 6 (8-16); ASPARTATE AMINO TRANSFERASE 17 U/L (10-37); BILIRUBIN,TOTAL 0.2 MG/DL (0.1-1.0); BLOOD UREA NITROGEN 21 MG/DL (7-18); BUN/CREATININE RATIO 25.3 (6.6-38.0); CALCIUM 8.5 MG/DL (8.5-10.1); CHLORIDE 100 MMOL/L (99-107); CREATININE 0.83 MG/DL (0.40-0.90); GLUCOSE 124 MG/DL (70-104); MAGNESIUM 1.8 MG/DL (1.5-2.4); POTASSIUM 4.3 MMOL/L (3.5-5.1); SODIUM 140 MMOL/L (135-145); TOTAL CARBON DIOXIDE 33.8 MMOL/L (24-32); TOTAL PROTEIN 6.6 G/DL (6.4-8.2); eGFR 72 ML/MIN
[2019-02-01 06:07] LABS: HYPERSEGMENTED NEUTROPHILS FEW; PLATELET ESTIMATE NORMAL; TOTAL CELLS COUNTED 100
--- NOTE | 2019-02-01 06:30 | NUR ---
Patient in room PCU 3023. I have received report from LAUREN Myers and had the opportunity to ask questions and assume patient care.
--- NOTE | 2019-02-01 06:34 | NUR ---
Problems reprioritized. Patient report given, questions answered & plan of care reviewed with Mariola AGUILAR.
[2019-02-01] MEDS: pantoprazole 40mg Tablet.DR PO SCH (07:29)
[2019-02-01] MEDS: carVEDilol 12.5mg tablet PO SCH ×2 (07:30→20:49)
[2019-02-01] MEDS: loratadine 10mg tablet PO SCH (07:30)
[2019-02-01] MEDS: lactobacillus rhamnosus 10,000 MMU CELLS/CAPSULE PO SCH ×2 (07:30→20:49)
[2019-02-01] MEDS: labetalol 100mg tablet PO PRN ×2 (07:31→15:32)
[2019-02-01] MEDS: potassium chloride 8mEq ER tablet PO SCH (07:31)
[2019-02-01] MEDS: furosemide 20MG tablet PO SCH (07:31)
[2019-02-01] MEDS: lisinopril 20mg tablet PO SCH (07:32)
[2019-02-01] MEDS: heparin, porcine 5000 units/ml vial SQ SCH ×2 (07:32→20:49)
[2019-02-01] MEDS: nicotine 14mg patch - 24hr TD SCH (07:34)
[2019-02-01] MEDS: K and/or MAG REPLACEMENT MC SCH (07:34)
[2019-02-01] MEDS: VANCOmycin 1250MG/NS 250ml Bag 250 ML IV SCH ×2 (09:51→20:50)
--- NOTE | 2019-02-01 09:51 | NUR ---
Vancomycin hung per MD order & primary RN request.
--- NOTE | 2019-02-01 10:32 | NUR ---
Paged Dr. Kaufman regarding new orders for Ativan. PAGER ID: [phone] MESSAGE: [phone] [id number]. Jerardo. Can we change her Ativan order to start at 0.5mg and give 1mg if 0.5mg doesn't work? Thanks. Jayla AGUILAR x [phone]
--- NOTE | 2019-02-01 10:36 | NUR ---
Put in new orders for IV lasix 20mg BID, and to place the patient on telemetry per Dr. Kaufman.
--- NOTE | 2019-02-01 12:02 | NUR ---
Spoke with Dr. Kaufman, new order for Ativan 0.5mg PO q6 hours PRN for anxiety
[2019-02-01] MEDS: LORazepam 0.5 MG tablet PO PRN (12:39)
--- NOTE | 2019-02-01 16:30 | NUR ---
Paged respiratory regarding a PRN breathing treatment.
[2019-02-01] MEDS: benzonatate 100mg capsule PO PRN (16:33)
--- NOTE | 2019-02-01 18:00 | NUR ---
Patient in room PCU 3023. I have received report from Mariola AGUILAR and had the opportunity to ask questions and assume patient care.
--- NOTE | 2019-02-01 18:31 | NUR ---
Problems reprioritized. Patient report given, questions answered & plan of care reviewed with LAUREN Myers.
--- NOTE | 2019-02-01 18:44 | NUR ---
Patient in room PCU 3023. I have received report from Mariola AGUILAR and had the opportunity to ask questions and assume patient care.
[2019-02-01] MEDS: furosemide 20 MG/2 ML vial IV SCH (20:49)
[2019-02-01] MEDS: normal saline 1000ml 1,000 ML IV SCH (20:57)
[2019-02-02 02:00] VITALS: BP 177/85
[2019-02-02] MEDS: ipratropium/albuterol 3ml nebule NEB PRN (02:27)
[2019-02-02] MEDS: labetalol 100mg tablet PO PRN (02:28)
--- NOTE | 2019-02-02 05:13 | NUR ---
[place] documentation: I have reviewed and agree with all interventions, assessments performed and documented by Thelma AGUILAR. [place] Medication Administration: For this medication-pass time frame, all medication were reviewed, dispensed, administered and documented per hospital policy by Thelma AGUILAR.
[2019-02-02 05:49] LABS: BASOPHILS # (AUTO) 0.1 X10'3 (0-0.2); BASOPHILS % (AUTO) 0.5 % (0-1); EOSINOPHILS # (AUTO) 0.2 X10'3 (0-0.9); EOSINOPHILS % (AUTO) 2.2 % (0-6); HEMATOCRIT 41.8 % (35.0-45.0); HEMOGLOBIN 13.9 g/dl (12.0-16.0); LYMPHOCYTES # (AUTO) 0.9 X10'3 (1.1-4.8); LYMPHOCYTES % (AUTO) 8.2 % (21-51); MEAN CORPUSCULAR HEMOGLOBIN 31.2 PG (27.0-31.0); MEAN CORPUSCULAR HGB CONC 33.3 g/dL (33.0-36.5); MEAN CORPUSCULAR VOLUME 93.6 FL (78-98); MEAN PLATELET VOLUME 8.5 FL (7.4-10.4); MONOCYTES # (AUTO) 0.8 X10'3 (0-0.9); MONOCYTES % (AUTO) 8.1 % (2-12); NEUTROPHILS # (AUTO) 8.4 X10'3 (1.8-7.7); PLATELET COUNT 255 X10'3 (140-440); RED BLOOD COUNT 4.46 X10'6 (4.20-5.60); WHITE BLOOD COUNT 10.4 X10'3 (4.5-11.0)
[2019-02-02 05:54] LABS: ALANINE AMINOTRANSFERASE 20 U/L (12-78); ALBUMIN 2.7 G/DL (3.4-5.0); ALBUMIN/GLOBULIN RATIO 0.8 (1.1-1.5); ALKALINE PHOSPHATASE 92 IU/L (46-116); ANION GAP 5 (8-16); ASPARTATE AMINO TRANSFERASE 11 U/L (10-37); BILIRUBIN,TOTAL 0.3 MG/DL (0.1-1.0); BLOOD UREA NITROGEN 20 MG/DL (7-18); BUN/CREATININE RATIO 25.3 (6.6-38.0); CHLORIDE 101 MMOL/L (99-107); CREATININE 0.79 MG/DL (0.40-0.90); GLUCOSE 124 MG/DL (70-104); MAGNESIUM 1.8 MG/DL (1.5-2.4); SODIUM 142 MMOL/L (135-145); TOTAL CARBON DIOXIDE 36.3 MMOL/L (24-32); TOTAL PROTEIN 6.3 G/DL (6.4-8.2); eGFR 76 ML/MIN
--- NOTE | 2019-02-02 06:15 | NUR ---
Problems reprioritized. Patient report given, questions answered & plan of care reviewed with Mariola AGUILAR.
--- NOTE | 2019-02-02 06:15 | NUR ---
Patient in room PCU 3023. I have received report from Lucia AGUILAR and Thelma AGUILAR and had the opportunity to ask questions and assume patient care.
[2019-02-02] MEDS: K and/or MAG REPLACEMENT MC SCH (06:49)
[2019-02-02 07:00] VITALS: BP 163/73
[2019-02-02] MEDS: VANCOmycin 1250MG/NS 250ml Bag 250 ML IV SCH ×2 (08:21→21:05)
[2019-02-02] MEDS: furosemide 20 MG/2 ML vial IV SCH ×2 (08:21→19:35)
[2019-02-02] MEDS: heparin, porcine 5000 units/ml vial SQ SCH ×2 (08:22→19:35)
[2019-02-02] MEDS: pantoprazole 40mg Tablet.DR PO SCH (08:24)
[2019-02-02] MEDS: loratadine 10mg tablet PO SCH (08:24)
[2019-02-02] MEDS: potassium chloride 8mEq ER tablet PO SCH (08:24)
[2019-02-02] MEDS: lactobacillus rhamnosus 10,000 MMU CELLS/CAPSULE PO SCH ×2 (08:24→19:35)
[2019-02-02] MEDS: lisinopril 20mg tablet PO SCH (08:25)
[2019-02-02] MEDS: carVEDilol 12.5mg tablet PO SCH ×2 (08:25→19:35)
[2019-02-02] MEDS: nicotine 14mg patch - 24hr TD SCH (08:25)
[2019-02-02] MEDS: albuterol 2.5 MG/3 ML nebule NEB PRN (10:54)
[2019-02-02] MEDS: budesonide 0.5mg/2ml UD nebule IH SCH (10:54)
[2019-02-02 11:00] VITALS: BP 141/73
--- NOTE | 2019-02-02 14:45 | NUR ---
Initial: Patient admitted with acute respiratory failure, COPD exacerbation, right lower lobe pneumonia, anxiety; she is eating very well, 75-100% PO intake of heart healthy diet and meeting needs for COPD exacerbation. recommend: 1. continue heart healthy diet 2. weight per rx Addendum: 02/02/19 at [address] Amended: Links added.
[2019-02-02 15:00] VITALS: BP 146/74
[2019-02-02] MEDS: hydrALAZINE 25 MG tablet PO SCH ×2 (16:33→23:16)
[2019-02-02 18:00] VITALS: BP 165/73
--- NOTE | 2019-02-02 18:30 | NUR ---
Patient in room PCU 3023. I have received report from Mariola AGUILAR and had the opportunity to ask questions and assume patient care.
--- NOTE | 2019-02-02 18:40 | NUR ---
Problems reprioritized. Patient report given, questions answered & plan of care reviewed with LAUREN Agarwal.
[2019-02-02] MEDS ORDERED: VANCOMYCIN LEVEL IV ONE (20:30)
[2019-02-02 22:00] VITALS: BP 156/57
[2019-02-03] VITALS (7 sets, daily range): BP systolic 119–198; BP diastolic 64–97
[2019-02-03] MEDS: hydrALAZINE 20mg/ml inj. IV PRN (03:40)
[2019-02-03 05:55] LABS: BASOPHILS % (AUTO) 0.3 % (0-1); EOSINOPHILS # (AUTO) 0.4 X10'3 (0-0.9); HEMATOCRIT 45.2 % (35.0-45.0); HEMOGLOBIN 15.1 g/dl (12.0-16.0); LYMPHOCYTES # (AUTO) 1.1 X10'3 (1.1-4.8); LYMPHOCYTES % (AUTO) 7.5 % (21-51); MEAN CORPUSCULAR HEMOGLOBIN 31.3 PG (27.0-31.0); MEAN CORPUSCULAR HGB CONC 33.4 g/dL (33.0-36.5); MEAN CORPUSCULAR VOLUME 93.7 FL (78-98); MONOCYTES # (AUTO) 0.9 X10'3 (0-0.9); MONOCYTES % (AUTO) 6.5 % (2-12); NEUTROPHILS # (AUTO) 11.9 X10'3 (1.8-7.7); NEUTROPHILS % (AUTO) 82.7 % (42-75); PLATELET COUNT 296 X10'3 (140-440); RED BLOOD COUNT 4.83 X10'6 (4.20-5.60); RED CELL DISTRIBUTION WIDTH 14.4 % (11.5-14.5); WHITE BLOOD COUNT 14.4 X10'3 (4.5-11.0)
[2019-02-03 06:07] LABS: ALBUMIN 2.9 G/DL (3.4-5.0); ANION GAP 6 (8-16); BLOOD UREA NITROGEN 19 MG/DL (7-18); BUN/CREATININE RATIO 25.7 (6.6-38.0); CALCIUM 8.9 MG/DL (8.5-10.1); CHLORIDE 101 MMOL/L (99-107); CREATININE 0.74 MG/DL (0.40-0.90); GLUCOSE 118 MG/DL (70-104); MAGNESIUM 1.9 MG/DL (1.5-2.4); POTASSIUM 4.2 MMOL/L (3.5-5.1); SODIUM 141 MMOL/L (135-145); TOTAL CARBON DIOXIDE 34.4 MMOL/L (24-32); eGFR 82 ML/MIN
--- NOTE | 2019-02-03 06:22 | NUR ---
Problems reprioritized. Patient report given, questions answered & plan of care reviewed with Sharon AGUILAR.
--- NOTE | 2019-02-03 06:46 | NUR ---
Patient in room PCU 3023. I have received report from Any and had the opportunity to ask questions and assume patient care.
[2019-02-03 07:17] LABS: PLATELET ESTIMATE NORMAL; TOTAL CELLS COUNTED 100
[2019-02-03 07:18] LABS: ANISOCYTOSIS FEW
[2019-02-03 07:19] LABS: POLYCHROMASIA FEW; SCHISTOCYTES FEW; SPHEROCYTES FEW
[2019-02-03 07:22] LABS: TOXIC GRANULATION 1+
[2019-02-03] MEDS: loratadine 10mg tablet PO SCH (07:38)
[2019-02-03] MEDS: lactobacillus rhamnosus 10,000 MMU CELLS/CAPSULE PO SCH ×2 (07:38→19:41)
[2019-02-03] MEDS: potassium chloride 8mEq ER tablet PO SCH (07:38)
[2019-02-03] MEDS: hydrALAZINE 25 MG tablet PO SCH ×2 (07:38→16:14)
[2019-02-03] MEDS: LORazepam 0.5 MG tablet PO PRN ×2 (07:39→15:04)
[2019-02-03] MEDS: lisinopril 20mg tablet PO SCH (07:39)
[2019-02-03] MEDS: nicotine 14mg patch - 24hr TD SCH (07:39)
[2019-02-03] MEDS: carVEDilol 12.5mg tablet PO SCH ×2 (07:39→19:41)
[2019-02-03] MEDS: heparin, porcine 5000 units/ml vial SQ SCH ×2 (07:40→19:42)
[2019-02-03] MEDS: pantoprazole 40mg Tablet.DR PO SCH (07:40)
[2019-02-03] MEDS: budesonide 0.5mg/2ml UD nebule IH SCH (07:51)
[2019-02-03] MEDS: albuterol 2.5 MG/3 ML nebule NEB PRN (07:51)
[2019-02-03] MEDS: K and/or MAG REPLACEMENT MC SCH (08:00)
[2019-02-03] MEDS: furosemide 20 MG/2 ML vial IV SCH ×2 (08:00→19:42)
[2019-02-03] MEDS: ipratropium/albuterol 3ml nebule NEB SCH ×5 (08:25→23:41)
[2019-02-03] MEDS: VANCOmycin 1250MG/NS 250ml Bag 250 ML IV SCH ×2 (09:10→21:33)
--- NOTE | 2019-02-03 10:51 | NUR ---
Dr. Albert notifed regarding elevated blood pressures on NOC shift and this AM. Dr. Albert instructed nursing to administer all BP medications as scheduled and she will continue to monitor. Blood pressure 165/81 from 182/82. Patient has a lot of anxiety this Am as well. After administration of medications and her antianxiety medication she was able to relax and her BP is slowly going down.
--- NOTE | 2019-02-03 10:53 | NUR ---
O2 Sat at rest on room air:84% If below 89%: Recovery O2 Sat at rest on 1 LPM: 89% % via NC No further documentation is necessary. If O2 Sat did not drop below 89% on room air,ambulate patient on room air. O2 Sat while ambulating on room air:___% Recovery O2 Sat while ambulating on ___LPM:___% No further documentation is necessary. If patient does not drop below 89% while ambulating, he/she does not qualify for home O2.
--- NOTE | 2019-02-03 13:57 | NUR ---
Pt's 4wheel walker with seat delivered by [employer]. Pt sleeping at this time. Walker at foot of bed with patient identifier on L hand film mounter.
--- NOTE | 2019-02-03 18:25 | NUR ---
Problems reprioritized. Patient report given, questions answered & plan of care reviewed with Sean.
--- NOTE | 2019-02-03 18:36 | NUR ---
Patient in room PCU 3023A. I have received report from LAUREN Herrera and had the opportunity to ask questions and assume patient care. Patient is sleeping with no sign of distress
[2019-02-04] MEDS: hydrALAZINE 25 MG tablet PO SCH ×2 (00:20→07:17)
[2019-02-04] MEDS: ipratropium/albuterol 3ml nebule NEB SCH ×3 (03:27→12:07)
[2019-02-04 05:27] LABS: EOSINOPHILS # (AUTO) 0.3 X10'3 (0-0.9); LYMPHOCYTES # (AUTO) 1.1 X10'3 (1.1-4.8)
[2019-02-04 05:29] LABS: BASOPHILS # (AUTO) 0.1 X10'3 (0-0.2); BASOPHILS % (AUTO) 0.8 % (0-1); EOSINOPHILS % (AUTO) 2.4 % (0-6); HEMATOCRIT 45.5 % (35.0-45.0); HEMOGLOBIN 15.6 g/dl (12.0-16.0); LYMPHOCYTES % (AUTO) 9.3 % (21-51); MEAN CORPUSCULAR HEMOGLOBIN 31.8 PG (27.0-31.0); MEAN CORPUSCULAR HGB CONC 34.2 g/dL (33.0-36.5); MEAN CORPUSCULAR VOLUME 92.8 FL (78-98); MONOCYTES # (AUTO) 0.9 X10'3 (0-0.9); MONOCYTES % (AUTO) 7.5 % (2-12); NEUTROPHILS # (AUTO) 9.7 X10'3 (1.8-7.7); PLATELET COUNT 311 X10'3 (140-440); RED CELL DISTRIBUTION WIDTH 14.4 % (11.5-14.5); WHITE BLOOD COUNT 12.2 X10'3 (4.5-11.0)
[2019-02-04 06:00] VITALS: BP 165/117
[2019-02-04 06:16] LABS: ALBUMIN 2.9 G/DL (3.4-5.0); ANION GAP 10 (8-16); BLOOD UREA NITROGEN 24 MG/DL (7-18); CALCIUM 9.4 MG/DL (8.5-10.1); CHLORIDE 102 MMOL/L (99-107); CREATININE 0.89 MG/DL (0.40-0.90); GLUCOSE 119 MG/DL (70-104); POTASSIUM 4.3 MMOL/L (3.5-5.1); SODIUM 142 MMOL/L (135-145); TOTAL CARBON DIOXIDE 30.4 MMOL/L (24-32); eGFR 66 ML/MIN
--- NOTE | 2019-02-04 06:38 | NUR ---
Problems reprioritized. Patient report given, questions answered & plan of care reviewed with LAUREN Mims. Pt stable at shift change
--- NOTE | 2019-02-04 06:40 | NUR ---
Patient in room PCU 3023. I have received report from Sean AGUILAR and had the opportunity to ask questions and assume patient care.
[2019-02-04] MEDS: budesonide 0.5mg/2ml UD nebule IH SCH (06:51)
[2019-02-04] MEDS: furosemide 20 MG/2 ML vial IV SCH (07:15)
[2019-02-04] MEDS: loratadine 10mg tablet PO SCH (07:16)
[2019-02-04] MEDS: heparin, porcine 5000 units/ml vial SQ SCH (07:16)
[2019-02-04] MEDS: nicotine 14mg patch - 24hr TD SCH (07:17)
[2019-02-04] MEDS: carVEDilol 12.5mg tablet PO SCH (07:17)
[2019-02-04] MEDS: lactobacillus rhamnosus 10,000 MMU CELLS/CAPSULE PO SCH (07:18)
[2019-02-04] MEDS: pantoprazole 40mg Tablet.DR PO SCH (07:18)
[2019-02-04] MEDS: potassium chloride 8mEq ER tablet PO SCH (07:18)
[2019-02-04] MEDS: lisinopril 20mg tablet PO SCH (07:19)
[2019-02-04] MEDS: LORazepam 0.5 MG tablet PO PRN (07:22)
[2019-02-04] MEDS ORDERED: HYDROchlorothiazide 12.5mg capsule PO SCH (08:00)
[2019-02-04] MEDS ORDERED: amLODIPine 5mg tablet PO SCH (08:00)
[2019-02-04] MEDS: K and/or MAG REPLACEMENT MC SCH (08:00)
[2019-02-04] MEDS ORDERED: levoFLOXACIN-Levaquin 500mg/D5 100 ML IV SCH (08:00)
[2019-02-04] MEDS: VANCOmycin 1250MG/NS 250ml Bag 250 ML IV SCH (09:07)
[2019-02-04 10:09] VITALS: BP 119/56
[2019-02-04] MEDS ORDERED: NICO-631 TD (10:53)
[2019-02-04] MEDS ORDERED: LISI-600 PO (10:53)
[2019-02-04 11:00] VITALS: BP 127/62
--- NOTE | 2019-02-04 13:01 | NUR ---
I have reviewed and agree with all medications administered and interventions performed by LINE FIXER Student Donta Kate.
--- NOTE | 2019-02-04 13:30 | NUR ---
pt is stable for discharge per md orders, discharge instructions reviewed w/ pt and family member, all questions answered, new medication prescription called in to [facility] in [facility] per pt request, tele monitor 43 removed and returned, PIV dc'ed and clean dry dressing in place, pt discharges from unit @ 1320 w/ family member and will be taking bus, bus ticket provided by CM, pt discharged with all her belongings and received donation clothing as well, returned home medication from pharmacy.
[2019-02-04] MEDS ORDERED: VANCOMYCIN LEVEL IV ONE (20:30)
[2019-02-05] MEDS ORDERED: levoFLOXACIN 500mg tablet PO SCH (08:00)
== END 2019-02-04 13:20 | disposition home or self-care (01) | DRG 140 ==
LOC: ER 08:10 → ED HOLD 20:52 → PCU 3S 23:20 → ICU 2S 01-29 02:00 → PCU 3S 01-30 14:30
PROVIDERS: ADMIT Internal Medicine; ATTEND Internal Medicine
PROC: 5A09357 Assistance with Respiratory Ventilation, Less than 24 Consecutive Hours, Continuous Positive Airway Pressure (ICD-10-PCS; principal; 2019-01-28)
PROC: 5A09357 Assistance with Respiratory Ventilation, Less than 24 Consecutive Hours, Continuous Positive Airway Pressure (ICD-10-PCS; 2019-01-29)
PROC: 5A09357 Assistance with Respiratory Ventilation, Less than 24 Consecutive Hours, Continuous Positive Airway Pressure (ICD-10-PCS; 2019-01-30)
DX: J44.0 Chronic obstructive pulmonary disease with (acute) lower respiratory infection (principal); J96.02 Acute respiratory failure with hypercapnia; J15.20 Pneumonia due to staphylococcus, unspecified; I11.0 Hypertensive heart disease with heart failure; E87.2 Acidosis; I50.22 Chronic systolic (congestive) heart failure; B95.8 Unspecified staphylococcus as the cause of diseases classified elsewhere; E11.9 Type 2 diabetes mellitus without complications; F12.90 Cannabis use, unspecified, uncomplicated; F17.200 Nicotine dependence, unspecified, uncomplicated; F15.90 Other stimulant use, unspecified, uncomplicated; K21.9 Gastro-esophageal reflux disease without esophagitis; F41.9 Anxiety disorder, unspecified; J44.1 Chronic obstructive pulmonary disease with (acute) exacerbation; Z59.0 Homelessness; Z80.1 Family history of malignant neoplasm of trachea, bronchus and lung; Z80.49 Family history of malignant neoplasm of other genital organs; Z79.899 Other long term (current) drug therapy
CPT/HCPCS: 36415; 36600; 71046; 80048; 80053; 80202; 81003; 82803; 82948; 83036; 83605; 83735; 83880; 85018; 85025; 87040; 87077; 87081; 87186; 87502; 87503; 93005; 94640; 94660; 94667; 94668; 94760; 96365; 96375; 97110; 97112; 97116; 97161; 97530; 99291; 99292; G0378; J0360; J0456; J0696; J1644; J1940; J2060; J2930; J3370; J3475; J3490; J7030; J7626

== ENCOUNTER 2019-04-10 13:15 | Inpatient (IN) | payer MEDICAID ==
[~2019-04-10] VITALS: Ht 162.6 cm; Wt 57.6 kg
[2019-04-10] MEDS: K and/or MAG REPLACEMENT MC SCH (02:49)
[~2019-04-10 13:15] MED LIST changes: +ALBU17AE26 IH; -ALBU8.5H8 INH; -ASPI-611 PO; -BECL10.62 INH; -CALC-829 PO; -CARV-50 PO; +CARV25TA PO; -CYCL-145 PO; +FURO20TA4 PO; -FURO40TA4 PO; -IBUP-1985 PO; -LORA10TA45 PO; +LORA10TA7 PO; +NICO-631 TD; -NICO-687 TD; +POTA-82 PO; -POTA8TAB8 PO; -PRED20TA PO; -TIOT4MIS2 INH; +TIOT4MIS5 IH
[2019-04-10] MEDS ORDERED: methylPREDNISolone sod succ 125mg/2ml vial IV ONE (13:50)
[2019-04-10] MEDS ORDERED: ipratropium/albuterol 3ml nebule NEB ONE (13:50)
[2019-04-10] MEDS ORDERED: normal saline 1000ML IV soln IV ONE (13:55)
[2019-04-10] MEDS ORDERED: azithromycin/NS 500mg/250ml 250 ML IV ONE (13:55)
[2019-04-10] MEDS ORDERED: cefepime 2g/NS 100ml ADVANTAGE 100 ML IV ONE (13:55)
[2019-04-10 14:07] LABS: BASOPHILS % (AUTO) 0.3 % (0-1); EOSINOPHILS % (AUTO) 0 % (0-6); HEMATOCRIT 47.1 % (35.0-45.0); LYMPHOCYTES # (AUTO) 0.4 X10'3 (1.1-4.8); LYMPHOCYTES % (AUTO) 4.5 % (21-51); MEAN CORPUSCULAR HEMOGLOBIN 30.1 PG (27.0-31.0); MEAN CORPUSCULAR HGB CONC 33.9 g/dL (33.0-36.5); MEAN CORPUSCULAR VOLUME 88.8 FL (78-98); MEAN PLATELET VOLUME 8.4 FL (7.4-10.4); MONOCYTES # (AUTO) 0.6 X10'3 (0-0.9); MONOCYTES % (AUTO) 7.1 % (2-12); NEUTROPHILS # (AUTO) 7.9 X10'3 (1.8-7.7); NEUTROPHILS % (AUTO) 88.1 % (42-75); PLATELET COUNT 175 X10'3 (140-440)
[2019-04-10 14:22] LABS: PARTIAL THROMBOPLASTIN TIME 25 SECONDS (22-32)
[2019-04-10 14:34] LABS: ALANINE AMINOTRANSFERASE 359 U/L (12-78); ALBUMIN 2.6 G/DL (3.4-5.0); ALBUMIN/GLOBULIN RATIO 0.7 (1.1-1.5); ALKALINE PHOSPHATASE 85 IU/L (46-116); ANION GAP 6 (8-16); ASPARTATE AMINO TRANSFERASE 147 U/L (10-37); BILIRUBIN,TOTAL 0.6 MG/DL (0.1-1.0); BLOOD UREA NITROGEN 18 MG/DL (7-18); BUN/CREATININE RATIO 23.7 (6.6-38.0); CALCIUM 8.2 MG/DL (8.5-10.1); CHLORIDE 102 MMOL/L (99-107); CREATININE 0.76 MG/DL (0.40-0.90); GLUCOSE 124 MG/DL (70-104); POTASSIUM 3.9 MMOL/L (3.5-5.1); SODIUM 139 MMOL/L (135-145); TOTAL CARBON DIOXIDE 31.5 MMOL/L (24-32); TOTAL PROTEIN 6.2 G/DL (6.4-8.2); eGFR 80 ML/MIN
[2019-04-10] MEDS ORDERED: furosemide 10 MG/1 ML 10ml inj IV ONE (14:40)
[2019-04-10] MEDS ORDERED: HYDROcodone/acetaminophen 5mg/325mg tablet PO PRN (15:40)
[2019-04-10] MEDS ORDERED: HYDROcodone/acetaminophen 10/325mg tab PO PRN (15:40)
[2019-04-10] MEDS ORDERED: potassium Cl 20 mEq SR tablet PO PRN (15:40)
[2019-04-10] MEDS ORDERED: magnesium 4gm in 100ml NS 100 ML IV PRN (15:40)
[2019-04-10] MEDS ORDERED: magnesium 2GM in 50ml NS 50 ML IV PRN (15:40)
[2019-04-10] MEDS ORDERED: mag hydrox/Alum hydrox/simeth 30ml oral suspension PO PRN (15:40)
[2019-04-10] MEDS ORDERED: potassium CL 10mEq/100ml bag 100 ML IV PRN ×2 (15:40)
[2019-04-10] MEDS ORDERED: acetaminophen 325mg tablet PO PRN ×2 (15:40)
[2019-04-10] MEDS ORDERED: ondansetron/PF 4mg/2ml inj IV PRN (15:40)
[2019-04-10] MEDS ORDERED: morphine 2 MG/ML inj. syringe IV PRN ×2 (15:40)
[2019-04-10] MEDS: nicotine 14mg patch - 24hr TD SCH (16:12)
[2019-04-10 16:16] LABS: URINE AMPHETAMINE SCREEN NEGATIVE (Neg); URINE BARBITUATE SCREEN NEGATIVE (Neg); URINE BENZODIAZEPINES SCREEN NEGATIVE (Neg); URINE CANNABINOID SCREEN POSITIVE (Neg); URINE COCAINE SCREEN NEGATIVE (Neg); URINE METHADONE SCREEN NEGATIVE (Neg); URINE OPIATE SCREEN NEGATIVE (Neg); URINE PHENCYCLIDINE SCREEN NEGATIVE (Neg)
--- NOTE | 2019-04-10 18:41 | NUR ---
SPOKE WITH PHARMACY REGARDING PATIENT'S MEDICATION: PATIENT REPORTS LISINOPRIL 40 MG DAILY AND LASIX 40 MG DAILY; HAS THE FOLLOWING MEDS IN HER PURSE: FLEXERIL 10 MH Q HS, CLARITIN 10 MG DAILY, COREG 25 MG BID, VENTOLIN INHALER
--- NOTE | 2019-04-10 19:00 | NUR ---
PHONE REPORT TO OSKAR AGUILAR: PATIENT GOING TO ROOM 7524B ON [facility] WITH JOHANNA AGUILAR WITH ALL BELONGINGS, DISCUSSED ALL LABS
[2019-04-10 19:10] VITALS: BP 164/92
[2019-04-10 23:00] VITALS: BP 138/65
[2019-04-10] MEDS: docusate sod 100mg capsule PO SCH (23:01)
[2019-04-10] MEDS: furosemide 10 MG/1 ML 10ml inj IV SCH (23:01)
[2019-04-11 02:08] LABS: BASOPHILS % (AUTO) 0.1 % (0-1); EOSINOPHILS % (AUTO) 0 % (0-6); HEMATOCRIT 46.3 % (35.0-45.0); HEMOGLOBIN 15.5 g/dl (12.0-16.0); LYMPHOCYTES # (AUTO) 0.3 X10'3 (1.1-4.8); LYMPHOCYTES % (AUTO) 3.5 % (21-51); MEAN CORPUSCULAR HEMOGLOBIN 29.4 PG (27.0-31.0); MEAN CORPUSCULAR HGB CONC 33.5 g/dL (33.0-36.5); MEAN CORPUSCULAR VOLUME 87.8 FL (78-98); MEAN PLATELET VOLUME 8.6 FL (7.4-10.4); MONOCYTES # (AUTO) 0.3 X10'3 (0-0.9); MONOCYTES % (AUTO) 4.6 % (2-12); NEUTROPHILS # (AUTO) 6.8 X10'3 (1.8-7.7); NEUTROPHILS % (AUTO) 91.8 % (42-75); PLATELET COUNT 162 X10'3 (140-440); RED BLOOD COUNT 5.27 X10'6 (4.20-5.60); RED CELL DISTRIBUTION WIDTH 15.7 % (11.5-14.5); WHITE BLOOD COUNT 7.4 X10'3 (4.5-11.0)
[2019-04-11 02:30] LABS: ALANINE AMINOTRANSFERASE 254 U/L (12-78); ALBUMIN 2.3 G/DL (3.4-5.0); ALBUMIN/GLOBULIN RATIO 0.7 (1.1-1.5); ALKALINE PHOSPHATASE 76 IU/L (46-116); ANION GAP 2 (8-16); ASPARTATE AMINO TRANSFERASE 75 U/L (10-37); BILIRUBIN,TOTAL 0.6 MG/DL (0.1-1.0); BLOOD UREA NITROGEN 20 MG/DL (7-18); BUN/CREATININE RATIO 24.7 (6.6-38.0); CALCIUM 7.7 MG/DL (8.5-10.1); CHLORIDE 101 MMOL/L (99-107); CREATININE 0.81 MG/DL (0.40-0.90); GLUCOSE 244 MG/DL (70-104); MAGNESIUM 1.4 MG/DL (1.5-2.4); SODIUM 142 MMOL/L (135-145); TOTAL CARBON DIOXIDE 39.5 MMOL/L (24-32); TOTAL PROTEIN 5.8 G/DL (6.4-8.2); eGFR 74 ML/MIN
[2019-04-11] MEDS: potassium Cl 20 mEq SR tablet PO PRN ×3 (02:50→19:34)
[2019-04-11 03:00] VITALS: BP 113/65
--- NOTE | 2019-04-11 06:24 | NUR ---
Patient in room PCU 3025. I have received report from Fiona and had the opportunity to ask questions and assume patient care.
[2019-04-11 07:00] VITALS: BP 139/76
[2019-04-11] MEDS: furosemide 10 MG/1 ML 10ml inj IV SCH ×2 (07:52→19:42)
[2019-04-11] MEDS: enoxaparin 40mg/0.4ml syringe SQ SCH (07:52)
[2019-04-11] MEDS: docusate sod 100mg capsule PO SCH ×2 (07:52→19:34)
[2019-04-11] MEDS: nicotine 14mg patch - 24hr TD SCH (07:53)
[2019-04-11] MEDS: CefTRIAXone 2gm/D5W 50ml 50 ML IV SCH (07:53)
[2019-04-11] MEDS: K and/or MAG REPLACEMENT MC SCH ×2 (08:00→19:42)
[2019-04-11] MEDS ORDERED: methylPREDNISolone sod succ 125mg/2ml vial IV SCH (08:00)
[2019-04-11] MEDS: magnesium Cl slow-release 64mg tablet PO PRN ×2 (08:05→19:35)
[2019-04-11 11:00] VITALS: BP 147/83
--- NOTE | 2019-04-11 11:26 | NUR ---
Page sent to Dr. Kaufman [id number] Ana Kurtz, just FYI Patient had a 12 beat run of V-tach. Patient is asymptomatic. VSS. Sharon AGUILAR [phone]
[2019-04-11] MEDS: albuterol 2.5 MG/3 ML nebule NEB SCH ×2 (12:31→20:46)
[2019-04-11 15:00] VITALS: BP 140/79
[2019-04-11 18:30] VITALS: BP 168/90
--- NOTE | 2019-04-11 18:41 | NUR ---
Patient in room PCU 3025. I have received report from LAUREN Herrera and had the opportunity to ask questions and assume patient care.
--- NOTE | 2019-04-11 18:47 | NUR ---
Problems reprioritized. Patient report given, questions answered & plan of care reviewed with Sandra AGUILAR.
[2019-04-11] MEDS: NYSTATIN CREAM - 30GM TUBE TP SCH (19:35)
--- NOTE | 2019-04-11 19:43 | NUR ---
MD notified for 8 second run of SVTs. Patient was asymptomatic, arousable pedal and radial pulses strong, SENIOR PRODUCTION MANAGER <3 secs pedal and radial. Potassium is 3.0 and Mg is 1.4 MD said to hold the lasix until the potassium and magnesium levels are corrected. Will continue to monitor closely.
[2019-04-11 22:30] VITALS: BP 166/94
[2019-04-12] VITALS (8 sets, daily range): BP systolic 136–184; BP diastolic 74–115
[2019-04-12] MEDS: albuterol 2.5 MG/3 ML nebule NEB SCH ×4 (02:48→20:23)
[2019-04-12] MEDS ORDERED: amLODIPine 2.5mg tablet PO ONE (02:55)
[2019-04-12 05:30] LABS: HEMOGLOBIN 14.6 g/dl (12.0-16.0); WHITE BLOOD COUNT 12.3 X10'3 (4.5-11.0)
[2019-04-12 05:33] LABS: BASOPHILS % (AUTO) 0 % (0-1); EOSINOPHILS % (AUTO) 0 % (0-6); HEMATOCRIT 44.1 % (35.0-45.0); LYMPHOCYTES # (AUTO) 0.6 X10'3 (1.1-4.8); LYMPHOCYTES % (AUTO) 4.8 % (21-51); MEAN CORPUSCULAR HEMOGLOBIN 29.3 PG (27.0-31.0); MEAN CORPUSCULAR HGB CONC 33.1 g/dL (33.0-36.5); MEAN CORPUSCULAR VOLUME 88.5 FL (78-98); MONOCYTES # (AUTO) 1.6 X10'3 (0-0.9); MONOCYTES % (AUTO) 12.9 % (2-12); NEUTROPHILS # (AUTO) 10.1 X10'3 (1.8-7.7); NEUTROPHILS % (AUTO) 82.3 % (42-75); PLATELET COUNT 200 X10'3 (140-440); RED BLOOD COUNT 4.98 X10'6 (4.20-5.60); RED CELL DISTRIBUTION WIDTH 15.8 % (11.5-14.5)
[2019-04-12 05:35] LABS: ALANINE AMINOTRANSFERASE 175 U/L (12-78); ALBUMIN 2.3 G/DL (3.4-5.0); ALBUMIN/GLOBULIN RATIO 0.6 (1.1-1.5); ALKALINE PHOSPHATASE 79 IU/L (46-116); ANION GAP 3 (8-16); ASPARTATE AMINO TRANSFERASE 34 U/L (10-37); BILIRUBIN,TOTAL 0.3 MG/DL (0.1-1.0); BLOOD UREA NITROGEN 24 MG/DL (7-18); BUN/CREATININE RATIO 28.2 (6.6-38.0); CALCIUM 8.7 MG/DL (8.5-10.1); CHLORIDE 102 MMOL/L (99-107); CREATININE 0.85 MG/DL (0.40-0.90); GLUCOSE 135 MG/DL (70-104); MAGNESIUM 1.6 MG/DL (1.5-2.4); POTASSIUM 4.9 MMOL/L (3.5-5.1); SODIUM 141 MMOL/L (135-145); TOTAL PROTEIN 5.9 G/DL (6.4-8.2); eGFR 70 ML/MIN
--- NOTE | 2019-04-12 05:53 | NUR ---
MD called and notified for consistently high blood pressure results which are recorded in routine vital signs. New order for PO Norvasc 2.5mg x once was given. BP was rechecked an hour later and there was no change. MD said to wait a couple hours for it to kick in. Will pass the info on to day shift.
[2019-04-12] MEDS ORDERED: dextrose ORAL solution 15 GM/59 ML bottle PO PRN ×2 (06:20)
[2019-04-12] MEDS ORDERED: MESSAGE TO PHARMACY PO ONE (06:20)
[2019-04-12] MEDS ORDERED: dextrose 50%-water 50ml dispensing syringe IV PRN ×2 (06:20)
[2019-04-12] MEDS ORDERED: glucagon, human recombinant 1mg kit SUBCUT PRN (06:20)
--- NOTE | 2019-04-12 06:21 | NUR ---
Problems reprioritized. Patient report given, questions answered & plan of care reviewed with LAUREN Herrera.
[2019-04-12] MEDS: K and/or MAG REPLACEMENT MC SCH ×2 (08:00→19:31)
[2019-04-12] MEDS: enoxaparin 40mg/0.4ml syringe SQ SCH (08:28)
[2019-04-12] MEDS: nicotine 14mg patch - 24hr TD SCH (08:28)
[2019-04-12] MEDS: docusate sod 100mg capsule PO SCH ×2 (08:28→19:20)
[2019-04-12] MEDS: CefTRIAXone 2gm/D5W 50ml 50 ML IV SCH (08:29)
[2019-04-12] MEDS: furosemide 10 MG/1 ML 10ml inj IV SCH ×2 (08:29→19:21)
[2019-04-12] MEDS: predniSONE 20 mg tablet PO SCH (08:29)
[2019-04-12] MEDS: NYSTATIN CREAM - 30GM TUBE TP SCH ×2 (08:38→22:35)
[2019-04-12 08:39] LABS: PLATELET ESTIMATE NORMAL; TOTAL CELLS COUNTED 100
[2019-04-12 14:27] LABS: HEMOGLOBIN A1C 6.4 % (4.5-6.2)
[2019-04-12] MEDS: amLODIPine 5mg tablet PO SCH (14:33)
--- NOTE | 2019-04-12 18:35 | NUR ---
Patient in room PCU 3025. I have received report from LAUREN Herrera and had the opportunity to ask questions and assume patient care.
[2019-04-12] MEDS: lactobacillus rhamnosus 10,000 MMU CELLS/CAPSULE PO SCH (19:20)
[2019-04-12] MEDS: metoprolol tartrate 25mg tablet PO SCH (19:20)
[2019-04-12] MEDS: insulin Lispro (HumaLOG) vial - multi-dose SQ SCH (19:26)
[2019-04-12] MEDS: insulin glargine (Lantus) pen - multi-dose SQ SCH (22:38)
[2019-04-13] VITALS (7 sets, daily range): BP systolic 130–185; BP diastolic 79–119
[2019-04-13] MEDS: albuterol 2.5 MG/3 ML nebule NEB SCH ×4 (02:00→19:39)
[2019-04-13] MEDS: labetalol 20mg/4ml (5mg/ml) syringe IV PRN ×2 (02:49→07:19)
--- NOTE | 2019-04-13 04:19 | NUR ---
PRN Labetalol given per orders. BP was 176/97. After an hour the BP is 144/85
[2019-04-13 05:15] LABS: BASOPHILS % (AUTO) 0.2 % (0-1); EOSINOPHILS % (AUTO) 0 % (0-6); HEMATOCRIT 48.3 % (35.0-45.0); HEMOGLOBIN 15.9 g/dl (12.0-16.0); LYMPHOCYTES # (AUTO) 1.1 X10'3 (1.1-4.8); LYMPHOCYTES % (AUTO) 8.7 % (21-51); MEAN CORPUSCULAR VOLUME 88.1 FL (78-98); MEAN PLATELET VOLUME 8.6 FL (7.4-10.4); MONOCYTES # (AUTO) 1.4 X10'3 (0-0.9); MONOCYTES % (AUTO) 11.5 % (2-12); NEUTROPHILS # (AUTO) 9.9 X10'3 (1.8-7.7); NEUTROPHILS % (AUTO) 79.6 % (42-75); PLATELET COUNT 215 X10'3 (140-440); RED BLOOD COUNT 5.49 X10'6 (4.20-5.60); RED CELL DISTRIBUTION WIDTH 15.9 % (11.5-14.5); WHITE BLOOD COUNT 12.4 X10'3 (4.5-11.0)
[2019-04-13 05:43] LABS: ALANINE AMINOTRANSFERASE 161 U/L (12-78); ALBUMIN 2.6 G/DL (3.4-5.0); ALBUMIN/GLOBULIN RATIO 0.7 (1.1-1.5); ALKALINE PHOSPHATASE 86 IU/L (46-116); ANION GAP 5 (8-16); ASPARTATE AMINO TRANSFERASE 43 U/L (10-37); BILIRUBIN,TOTAL 0.3 MG/DL (0.1-1.0); BLOOD UREA NITROGEN 31 MG/DL (7-18); BUN/CREATININE RATIO 41.3 (6.6-38.0); CALCIUM 8.7 MG/DL (8.5-10.1); CHLORIDE 98 MMOL/L (99-107); CREATININE 0.75 MG/DL (0.40-0.90); GLUCOSE 96 MG/DL (70-104); MAGNESIUM 1.7 MG/DL (1.5-2.4); POTASSIUM 4.1 MMOL/L (3.5-5.1); SODIUM 140 MMOL/L (135-145); TOTAL CARBON DIOXIDE 36.7 MMOL/L (24-32); TOTAL PROTEIN 6.5 G/DL (6.4-8.2); eGFR 81 ML/MIN
--- NOTE | 2019-04-13 06:29 | NUR ---
Problems reprioritized. Patient report given, questions answered & plan of care reviewed with LAUREN Dexter.
--- NOTE | 2019-04-13 06:36 | NUR ---
Patient in room PCU 3025. I have received report from LAUREN Flores and had the opportunity to ask questions and assume patient care.Patient is currently resting in bed, bed locked and low, call light in reach, no acute distress, will continue to monitor.
[2019-04-13] MEDS: metoprolol tartrate 25mg tablet PO SCH ×2 (07:25→21:05)
[2019-04-13] MEDS: CefTRIAXone 2gm/D5W 50ml 50 ML IV SCH (07:25)
[2019-04-13] MEDS: furosemide 10 MG/1 ML 10ml inj IV SCH ×2 (07:25→21:02)
[2019-04-13] MEDS: nicotine 14mg patch - 24hr TD SCH (07:25)
[2019-04-13] MEDS: docusate sod 100mg capsule PO SCH ×2 (07:25→20:00)
[2019-04-13] MEDS: lactobacillus rhamnosus 10,000 MMU CELLS/CAPSULE PO SCH ×2 (07:26→21:03)
[2019-04-13] MEDS: amLODIPine 5mg tablet PO SCH (07:26)
[2019-04-13] MEDS: enoxaparin 40mg/0.4ml syringe SQ SCH (07:27)
[2019-04-13] MEDS: NYSTATIN CREAM - 30GM TUBE TP SCH ×2 (07:33→21:04)
[2019-04-13] MEDS: K and/or MAG REPLACEMENT MC SCH ×2 (07:33→20:00)
[2019-04-13] MEDS: predniSONE 20 mg tablet PO SCH (07:35)
[2019-04-13] MEDS ORDERED: non-formulary drug (Albuterol 2 PUFFS) IH PRN (11:50)
[2019-04-13] MEDS: lisinopril 20mg tablet PO SCH (12:40)
[2019-04-13] MEDS: insulin Lispro (HumaLOG) vial - multi-dose SQ SCH ×2 (14:13→19:01)
--- NOTE | 2019-04-13 18:19 | NUR ---
Problems reprioritized. Patient report given, questions answered & plan of care reviewed with Feliz RN.
[2019-04-13] MEDS ORDERED: non-formulary drug (Carvedilol (Coreg) 1 TAB) PO SCH (20:00)
[2019-04-13] MEDS: insulin glargine (Lantus) pen - multi-dose SQ SCH (21:08)
[2019-04-14 02:00] VITALS: BP 150/90
[2019-04-14] MEDS: albuterol 2.5 MG/3 ML nebule NEB SCH ×3 (03:03→14:00)
[2019-04-14 05:16] LABS: HEMATOCRIT 51.6 % (35.0-45.0); LYMPHOCYTES % (AUTO) 9.9 % (21-51); MEAN PLATELET VOLUME 8.8 FL (7.4-10.4); NEUTROPHILS # (AUTO) 8.3 X10'3 (1.8-7.7)
[2019-04-14 05:17] LABS: BASOPHILS % (AUTO) 0.3 % (0-1); EOSINOPHILS % (AUTO) 0.1 % (0-6); HEMOGLOBIN 17.4 g/dl (12.0-16.0); MEAN CORPUSCULAR HEMOGLOBIN 29.8 PG (27.0-31.0); MEAN CORPUSCULAR HGB CONC 33.8 g/dL (33.0-36.5); MEAN CORPUSCULAR VOLUME 88.2 FL (78-98); MONOCYTES # (AUTO) 1.2 X10'3 (0-0.9); MONOCYTES % (AUTO) 11.4 % (2-12); NEUTROPHILS % (AUTO) 78.3 % (42-75); PLATELET COUNT 235 X10'3 (140-440); RED BLOOD COUNT 5.84 X10'6 (4.20-5.60); RED CELL DISTRIBUTION WIDTH 15.7 % (11.5-14.5); WHITE BLOOD COUNT 10.6 X10'3 (4.5-11.0)
[2019-04-14 05:32] LABS: ALBUMIN 2.8 G/DL (3.4-5.0); ANION GAP 8 (8-16); BILIRUBIN,TOTAL 0.3 MG/DL (0.1-1.0); BLOOD UREA NITROGEN 49 MG/DL (7-18); CALCIUM 8.8 MG/DL (8.5-10.1); CHLORIDE 98 MMOL/L (99-107); CREATININE 0.83 MG/DL (0.40-0.90); GLUCOSE 129 MG/DL (70-104); MAGNESIUM 1.9 MG/DL (1.5-2.4); POTASSIUM 3.5 MMOL/L (3.5-5.1); SODIUM 141 MMOL/L (135-145); TOTAL CARBON DIOXIDE 35.4 MMOL/L (24-32); eGFR 72 ML/MIN
[2019-04-14 05:33] LABS: ALANINE AMINOTRANSFERASE 126 U/L (12-78); ALBUMIN/GLOBULIN RATIO 0.7 (1.1-1.5); ALKALINE PHOSPHATASE 92 IU/L (46-116); ASPARTATE AMINO TRANSFERASE 24 U/L (10-37)
[2019-04-14 06:00] VITALS: BP 147/99
--- NOTE | 2019-04-14 06:00 | NUR ---
Patient in room PCU 3025. I have received report from Feliz RN and had the opportunity to ask questions and assume patient care.
--- NOTE | 2019-04-14 06:22 | NUR ---
Problems reprioritized. Patient report given, questions answered & plan of care reviewed with Joaquina AGUILAR.
[2019-04-14] MEDS: docusate sod 100mg capsule PO SCH (07:36)
[2019-04-14] MEDS: amLODIPine 5mg tablet PO SCH (07:37)
[2019-04-14] MEDS: lactobacillus rhamnosus 10,000 MMU CELLS/CAPSULE PO SCH (07:37)
[2019-04-14] MEDS: lisinopril 20mg tablet PO SCH (07:37)
[2019-04-14] MEDS: metoprolol tartrate 25mg tablet PO SCH (07:37)
[2019-04-14] MEDS: furosemide 10 MG/1 ML 10ml inj IV SCH (07:38)
[2019-04-14] MEDS: enoxaparin 40mg/0.4ml syringe SQ SCH (07:39)
[2019-04-14] MEDS: CefTRIAXone 2gm/D5W 50ml 50 ML IV SCH (07:39)
[2019-04-14] MEDS: nicotine 14mg patch - 24hr TD SCH (07:40)
[2019-04-14] MEDS ORDERED: POTASSIUM CHLORIDE 8 MEQ PO SCH (08:00)
[2019-04-14] MEDS ORDERED: pantoprazole 40mg Tablet.DR PO SCH (08:00)
[2019-04-14] MEDS: K and/or MAG REPLACEMENT MC SCH (08:00)
[2019-04-14] MEDS: NYSTATIN CREAM - 30GM TUBE TP SCH (08:01)
[2019-04-14] MEDS: predniSONE 20 mg tablet PO SCH (08:48)
[2019-04-14 11:00] VITALS: BP 145/85
[2019-04-14] MEDS: insulin Lispro (HumaLOG) vial - multi-dose SQ SCH (14:01)
[2019-04-14] MEDS ORDERED: PRED20TA PO (14:05)
[2019-04-14] MEDS ORDERED: CEFD300C3 PO (14:05)
[2019-04-14] MEDS ORDERED: ALBU18HF2 IH (14:05)
[2019-04-14] MEDS ORDERED: ADV50100 INH (14:05)
[2019-04-14] MEDS ORDERED: FURO20TA4 PO (14:05)
[2019-04-14 15:00] VITALS: BP 129/90
--- NOTE | 2019-04-14 16:00 | NUR ---
Called [facility] to set up PCP appt for pt. Was directed to Krystyna AGUILAR who scheduled patient for 04/22/19 @ 9:20am with Dr. Del Valle. Krystyna provided me with contact information for transport with [facility] [phone]. I instructed patient while reviewing DC packet that she should call [facility] at least 5 days prior to appt to set up transportation through them which Krystyna says will provide patient with transpo to and from the clinic. Krystyna also said that if pt. runs into issues, she can contact [facility] directly and they will be able to pay for a cab one time. I provided the pt with their number as well [phone]. Son was present during this conversation. Per MD orders, patient stable for discharge. Discharge instructions reviewed with pt. and son; all questions answered to satisfaction. New prescriptions called to preferred pharmacy and medications stored in [facility] pharmacy returned to patient. All belongings sent with patient. Provided with clothing for discharge. Doctor's appt made as above. Discontinued tele monitoring; discontinued IV with cannula intact. Offered wheelchair but refused and ambulated to private vehicle accompanied by son.
== END 2019-04-14 16:30 | disposition home or self-care (01) | DRG 194 ==
LOC: ER 13:16 → ED HOLD 15:37 → EDBEDREQ 18:29 → PCU 3S 19:10
PROVIDERS: ADMIT Internal Medicine; ATTEND Internal Medicine
DX: I11.0 Hypertensive heart disease with heart failure (principal); J96.00 Acute respiratory failure, unspecified whether with hypoxia or hypercapnia; J96.02 Acute respiratory failure with hypercapnia; J96.01 Acute respiratory failure with hypoxia; I50.23 Acute on chronic systolic (congestive) heart failure; J44.1 Chronic obstructive pulmonary disease with (acute) exacerbation; E11.9 Type 2 diabetes mellitus without complications; F15.90 Other stimulant use, unspecified, uncomplicated; E87.6 Hypokalemia; F12.90 Cannabis use, unspecified, uncomplicated; F17.200 Nicotine dependence, unspecified, uncomplicated; Z59.0 Homelessness; Z85.118 Personal history of other malignant neoplasm of bronchus and lung; Z85.41 Personal history of malignant neoplasm of cervix uteri
CPT/HCPCS: 36415; 71045; 80053; 80305; 82948; 83036; 83605; 83735; 83880; 84145; 84484; 85025; 85610; 85730; 87040; 87077; 87081; 87186; 93005; 93306; 94640; 94760; 96365; 96375; 97161; 99285; G0378; J0456; J0692; J0696; J1650; J1815; J1940; J2930; J3490; J7512

== ENCOUNTER 2019-04-23 13:02 | Emergency (ER) | payer MEDICAID ==
[~2019-04-23] VITALS: Ht 164.5 cm; Wt 56.0 kg
[~2019-04-23 13:02] MED LIST changes: +ADV50100 INH; +ALBU18HF2 IH; +CEFD300C3 PO; +PRED20TA PO; -TIOT4MIS5 IH
[2019-04-23] MEDS ORDERED: ibuprofen tablet 400 MG TABLET PO ONE (14:20)
[2019-04-23] MEDS ORDERED: IBUP-1984 PO (14:31)
== END 2019-04-23 14:53 | disposition home or self-care (01) ==
LOC: ER 13:02
DX: M25.531 Pain in right wrist (principal); M25.532 Pain in left wrist; I10 Essential (primary) hypertension; J44.9 Chronic obstructive pulmonary disease, unspecified; E11.9 Type 2 diabetes mellitus without complications; F12.90 Cannabis use, unspecified, uncomplicated; F15.90 Other stimulant use, unspecified, uncomplicated; Z59.0 Homelessness; Z79.899 Other long term (current) drug therapy; X50.1XXA Overexertion from prolonged static or awkward postures, initial encounter; Y93.89 Activity, other specified; Y92.89 Other specified places as the place of occurrence of the external cause; Y99.9 Unspecified external cause status
CPT/HCPCS: 29260; 73110; 99284

== ENCOUNTER 2019-05-18 06:43 | Inpatient (IN) | payer MEDICAID ==
[~2019-05-18] VITALS: Ht 162.6 cm; Wt 60.9 kg
[~2019-05-18 06:43] MED LIST changes: -CEFD300C3 PO
[2019-05-18] MEDS ORDERED: ipratropium/albuterol 3ml nebule NEB ONE (07:00)
[2019-05-18] MEDS ORDERED: methylPREDNISolone sod succ 125mg/2ml vial IV ONE (07:00)
[2019-05-18] MEDS ORDERED: furosemide 40mg/4ml inj IV ONE (07:00)
[2019-05-18 07:35] LABS: ABG BASE EXCESS 2.7 mmol/L (-2.0-3.0); ABG HCO3 28.3 mmol/L (22.0-26.0); ABG OXYGEN SATURATION 93.6 % (95-98); ABG PCO2 (T) 47.9 mmHg (35.0-45.0); ABG PO2 (T) 72.8 mmHg (83-108); ALLEN'S TEST POSITIVE; FCOHb 0.5 % (0.5-1.5); FLOW 4 L/min; FMetHb 0.2 % (0.3-1.12); FO2Hb 92.9 % (94-100); TOTAL HEMOGLOBIN 12.5 G/dl (12.0-16.0)
[2019-05-18 07:54] LABS: BASOPHILS % (AUTO) 0.5 % (0-1); EOSINOPHILS % (AUTO) 0.1 % (0-6); HEMATOCRIT 37.3 % (35.0-45.0); HEMOGLOBIN 12.2 g/dl (12.0-16.0); LYMPHOCYTES # (AUTO) 0.8 X10'3 (1.1-4.8); LYMPHOCYTES % (AUTO) 8.1 % (21-51); MEAN CORPUSCULAR HEMOGLOBIN 29.5 PG (27.0-31.0); MEAN CORPUSCULAR HGB CONC 32.7 g/dL (33.0-36.5); MEAN CORPUSCULAR VOLUME 90.3 FL (78-98); MEAN PLATELET VOLUME 7.8 FL (7.4-10.4); MONOCYTES # (AUTO) 0.8 X10'3 (0-0.9); MONOCYTES % (AUTO) 7.8 % (2-12); NEUTROPHILS # (AUTO) 8.7 X10'3 (1.8-7.7); NEUTROPHILS % (AUTO) 83.5 % (42-75); PLATELET COUNT 341 X10'3 (140-440); RED BLOOD COUNT 4.13 X10'6 (4.20-5.60); RED CELL DISTRIBUTION WIDTH 17.6 % (11.5-14.5); WHITE BLOOD COUNT 10.4 X10'3 (4.5-11.0)
[2019-05-18 08:06] LABS: PARTIAL THROMBOPLASTIN TIME 25 SECONDS (22-32)
[2019-05-18 08:14] LABS: ALANINE AMINOTRANSFERASE 93 U/L (12-78); ALBUMIN/GLOBULIN RATIO 0.9 (1.1-1.5); ALKALINE PHOSPHATASE 120 IU/L (46-116); ANION GAP 5 (8-16); ASPARTATE AMINO TRANSFERASE 44 U/L (10-37); BILIRUBIN,TOTAL 0.4 MG/DL (0.1-1.0); BLOOD UREA NITROGEN 18 MG/DL (7-18); CALCIUM 8.4 MG/DL (8.5-10.1); CHLORIDE 106 MMOL/L (99-107); CREATININE 1.06 MG/DL (0.40-0.90); GLUCOSE 164 MG/DL (70-104); POTASSIUM 3.2 MMOL/L (3.5-5.1); SODIUM 142 MMOL/L (135-145); TOTAL CARBON DIOXIDE 30.7 MMOL/L (24-32); TOTAL PROTEIN 6.4 G/DL (6.4-8.2); eGFR 54 ML/MIN
--- NOTE | 2019-05-18 08:18 | NUR ---
ASSIT PT TO BSC TO VOID. ALSO SMALL BM.
[2019-05-18] MEDS ORDERED: labetalol 20mg/4ml (5mg/ml) syringe IV ONE (08:25)
[2019-05-18] MEDS ORDERED: cefepime 2g/NS 100ml ADVANTAGE 100 ML IV ONE (08:30)
[2019-05-18] MEDS ORDERED: levoFLOXACIN-Levaquin 750MG/D5 150 ML IV ONE (08:30)
[2019-05-18] MEDS ORDERED: CEFEPIME 2gm in D5W 50mL 50 ML IV ONE (09:20)
[2019-05-18] MEDS ORDERED: ondansetron/PF 4mg/2ml inj IV PRN (09:45)
[2019-05-18] MEDS ORDERED: mag hydrox/Alum hydrox/simeth 30ml oral suspension PO PRN (09:45)
[2019-05-18] MEDS ORDERED: magnesium hydroxide 30ml (MOM) UD suspension PO PRN (09:45)
[2019-05-18] MEDS ORDERED: HYDROcodone/acetaminophen 5mg/325mg tablet PO PRN (09:45)
[2019-05-18] MEDS ORDERED: acetaminophen 325mg tablet PO PRN ×2 (09:45)
[2019-05-18] MEDS ORDERED: HYDROcodone/acetaminophen 10/325mg tab PO PRN (09:45)
[2019-05-18] MEDS ORDERED: morphine 2 MG/ML inj. syringe IV PRN ×2 (09:45)
[2019-05-18] MEDS ORDERED: FLUT1DIS INH (12:24)
[2019-05-18] MEDS ORDERED: NICO-731 TOP (12:24)
[2019-05-18] MEDS ORDERED: LISI-600 PO (12:24)
[2019-05-18] MEDS ORDERED: FURO-149 PO (12:24)
[2019-05-18 12:57] LABS: URINE AMPHETAMINE SCREEN NEGATIVE (Neg); URINE BARBITUATE SCREEN NEGATIVE (Neg); URINE BENZODIAZEPINES SCREEN NEGATIVE (Neg); URINE CANNABINOID SCREEN NEGATIVE (Neg); URINE COCAINE SCREEN NEGATIVE (Neg); URINE METHADONE SCREEN NEGATIVE (Neg); URINE OPIATE SCREEN POSITIVE (Neg); URINE PHENCYCLIDINE SCREEN NEGATIVE (Neg)
[2019-05-18 15:00] VITALS: BP 172/89
--- NOTE | 2019-05-18 16:30 | NUR ---
Malnutrition consult, per documented weight history patient has stable weight with no significant weight loss. Recent admission 04/10/19 patient had great appetite eating 75-100% average of carb controlled diet. Patient is homeless, food insecurity, transition social worker have already been consult. no malnutrition criteria met. Will follow per policy. Addendum: 05/18/19 at [address] Amended: Links added.
--- NOTE | 2019-05-18 18:15 | NUR ---
Patient in room PCU 3021. I have received report from Sharon AGUILAR and had the opportunity to ask questions and assume patient care. Patient is sleeping soundly, will continue to monitor closely.
--- NOTE | 2019-05-18 18:48 | NUR ---
Problems reprioritized. Patient report given, questions answered & plan of care reviewed with Belle AGUILAR.
[2019-05-18 19:00] VITALS: BP 194/102
[2019-05-18] MEDS: K and/or MAG REPLACEMENT MC SCH ×2 (19:00→20:00)
[2019-05-18] MEDS ORDERED: potassium Cl 20 mEq SR tablet PO PRN ×2 (19:15)
[2019-05-18] MEDS ORDERED: potassium CL 10mEq/100ml bag 100 ML IV PRN (19:15)
--- NOTE | 2019-05-18 19:18 | NUR ---
CALLED DR. NATHAN Patient has K+ of 3.2, placed on mg+/k+ protocol.
[2019-05-18] MEDS: furosemide 40mg/4ml inj IV SCH (19:28)
[2019-05-18] MEDS: metoprolol tartrate 50mg tablet PO SCH (19:29)
[2019-05-18] MEDS: carVEDilol 12.5mg tablet PO SCH (19:29)
[2019-05-18 19:55] LABS: MAGNESIUM 1.6 MG/DL (1.5-2.4); POTASSIUM 3.9 MMOL/L (3.5-5.1)
--- NOTE | 2019-05-18 21:26 | NUR ---
Tried to place IV in patient, wasn't successful, she is refusing to have a new IV placed. She stated " It Fucking hurt and I am not having it done again." Tried to have resource nurse, ([facility] RN) place it, she refused with him also.
[2019-05-18] MEDS: budesonide 0.5mg/2ml UD nebule IH SCH (21:54)
[2019-05-18] MEDS: albuterol 2.5 MG/3 ML nebule NEB PRN (21:54)
[2019-05-18 23:00] VITALS: BP 167/96
[2019-05-19 03:00] VITALS: BP 162/104
[2019-05-19 05:53] LABS: BASOPHILS # (AUTO) 0.1 X10'3 (0-0.2); BASOPHILS % (AUTO) 0.6 % (0-1); EOSINOPHILS % (AUTO) 0.1 % (0-6); HEMATOCRIT 36.2 % (35.0-45.0); HEMOGLOBIN 11.8 g/dl (12.0-16.0); LYMPHOCYTES # (AUTO) 0.5 X10'3 (1.1-4.8); LYMPHOCYTES % (AUTO) 3.3 % (21-51); MEAN CORPUSCULAR HEMOGLOBIN 29.4 PG (27.0-31.0); MEAN CORPUSCULAR HGB CONC 32.5 g/dL (33.0-36.5); MEAN CORPUSCULAR VOLUME 90.6 FL (78-98); MEAN PLATELET VOLUME 8.7 FL (7.4-10.4); MONOCYTES # (AUTO) 1.2 X10'3 (0-0.9); MONOCYTES % (AUTO) 7.9 % (2-12); NEUTROPHILS # (AUTO) 13.2 X10'3 (1.8-7.7); NEUTROPHILS % (AUTO) 88.1 % (42-75); PLATELET COUNT 259 X10'3 (140-440); RED CELL DISTRIBUTION WIDTH 17.5 % (11.5-14.5)
[2019-05-19 06:00] VITALS: BP 171/110
[2019-05-19 06:20] LABS: ALBUMIN 2.7 G/DL (3.4-5.0); ANION GAP 11 (8-16); BLOOD UREA NITROGEN 23 MG/DL (7-18); BUN/CREATININE RATIO 29.5 (6.6-38.0); CALCIUM 8.6 MG/DL (8.5-10.1); CHLORIDE 106 MMOL/L (99-107); CREATININE 0.78 MG/DL (0.40-0.90); GLUCOSE 158 MG/DL (70-104); MAGNESIUM 1.7 MG/DL (1.5-2.4); POTASSIUM 4.4 MMOL/L (3.5-5.1); SODIUM 145 MMOL/L (135-145); TOTAL CARBON DIOXIDE 27.8 MMOL/L (24-32); eGFR 77 ML/MIN
--- NOTE | 2019-05-19 06:29 | NUR ---
Patient in room PCU 3021. I have received report from LAUREN Odonnell and had the opportunity to ask questions and assume patient care. Patient currently sleeping in bed, bed locked and low, call light in reach, no acute distress, will continue to monitor.
--- NOTE | 2019-05-19 07:26 | NUR ---
PAGER ID: [phone] MESSAGE: LAUREN Dexter, ext [phone], felipe Kurtzi patient has no IV access, was refusing IV last night, BP 171/110, will give oral BP meds now. will see if patient will allow PICC nurse to place PIV for lasix
[2019-05-19] MEDS: metoprolol tartrate 50mg tablet PO SCH ×2 (07:33→21:51)
[2019-05-19] MEDS: carVEDilol 12.5mg tablet PO SCH (07:33)
[2019-05-19] MEDS: loratadine 10mg tablet PO SCH (07:33)
[2019-05-19] MEDS: nitroGLYCERIN 0.4mg/hour patch TD SCH (07:35)
[2019-05-19] MEDS: enoxaparin 40mg/0.4ml syringe SUBCUT SCH (07:37)
[2019-05-19] MEDS ORDERED: lisinopril 10 MG tablet PO SCH (08:00)
[2019-05-19] MEDS ORDERED: lisinopril 20mg tablet PO SCH (08:00)
[2019-05-19] MEDS: K and/or MAG REPLACEMENT MC SCH ×2 (08:00→20:00)
[2019-05-19] MEDS ORDERED: furosemide 40mg tablet PO SCH (08:00)
[2019-05-19] MEDS: lisinopril 20mg tablet PO SCH ×2 (08:05→21:50)
[2019-05-19] MEDS: spironolactone 25 MG tablet PO SCH (09:22)
[2019-05-19] MEDS: furosemide 40mg/4ml inj IV SCH ×2 (09:31→21:52)
--- NOTE | 2019-05-19 09:35 | NUR ---
PAGER ID: [phone] MESSAGE: LAUREN Dexter, ext [phone], Jerardo, Patient requesting nicotine patch, says she smokes 1/2 pack/day normally
[2019-05-19] MEDS: nicotine 14mg patch - 24hr TD SCH (10:06)
[2019-05-19] MEDS: albuterol 2.5 MG/3 ML nebule NEB PRN ×2 (10:21→20:25)
[2019-05-19] MEDS: budesonide 0.5mg/2ml UD nebule IH SCH ×2 (10:21→20:25)
[2019-05-19 11:00] VITALS: BP 115/60
--- NOTE | 2019-05-19 14:33 | NUR ---
Problems reprioritized. Patient report given, questions answered & plan of care reviewed with LAUREN Dickerson.
[2019-05-19 15:00] VITALS: BP 123/62
--- NOTE | 2019-05-19 15:00 | NUR ---
Patient in room PCU 3021. I have received report from LAUREN Dexter and had the opportunity to ask questions and assume patient care. Patient awake in bed and in no acute distress.
--- NOTE | 2019-05-19 18:15 | NUR ---
Patient in room PCU 3021. I have received report from Jayla AGUILAR and had the opportunity to ask questions and assume patient care.
--- NOTE | 2019-05-19 18:23 | NUR ---
Problems reprioritized. Patient report given, questions answered & plan of care reviewed with LAUREN Odonnell. Patient stable at transfer of care.
[2019-05-19 19:00] VITALS: BP 151/75
[2019-05-19 23:00] VITALS: BP 142/76
[2019-05-20 03:00] VITALS: BP 140/78
--- NOTE | 2019-05-20 06:05 | NUR ---
Problems reprioritized. Patient report given, questions answered & plan of care reviewed with Jayla AGUILAR.
--- NOTE | 2019-05-20 06:17 | NUR ---
Patient in room PCU 3021. I have received report from LAUREN Odonnell and had the opportunity to ask questions and assume patient care. Patient asleep in bed and in no acute distress.
[2019-05-20 06:29] LABS: BASOPHILS # (AUTO) 0.1 X10'3 (0-0.2); BASOPHILS % (AUTO) 0.5 % (0-1); EOSINOPHILS # (AUTO) 0.1 X10'3 (0-0.9); EOSINOPHILS % (AUTO) 0.5 % (0-6); HEMATOCRIT 35.8 % (35.0-45.0); HEMOGLOBIN 11.8 g/dl (12.0-16.0); LYMPHOCYTES # (AUTO) 1.1 X10'3 (1.1-4.8); LYMPHOCYTES % (AUTO) 9.1 % (21-51); MEAN CORPUSCULAR HEMOGLOBIN 29.8 PG (27.0-31.0); MEAN CORPUSCULAR VOLUME 90.3 FL (78-98); MEAN PLATELET VOLUME 8.6 FL (7.4-10.4); MONOCYTES # (AUTO) 0.9 X10'3 (0-0.9); MONOCYTES % (AUTO) 8.1 % (2-12); NEUTROPHILS # (AUTO) 9.5 X10'3 (1.8-7.7); NEUTROPHILS % (AUTO) 81.8 % (42-75); PLATELET COUNT 319 X10'3 (140-440); RED BLOOD COUNT 3.97 X10'6 (4.20-5.60); RED CELL DISTRIBUTION WIDTH 17.4 % (11.5-14.5); WHITE BLOOD COUNT 11.6 X10'3 (4.5-11.0)
[2019-05-20 06:45] LABS: ALBUMIN 2.7 G/DL (3.4-5.0); ANION GAP 3 (8-16); BLOOD UREA NITROGEN 33 MG/DL (7-18); BUN/CREATININE RATIO 34.7 (6.6-38.0); CALCIUM 8.5 MG/DL (8.5-10.1); CHLORIDE 103 MMOL/L (99-107); CREATININE 0.95 MG/DL (0.40-0.90); GLUCOSE 102 MG/DL (70-104); MAGNESIUM 1.6 MG/DL (1.5-2.4); POTASSIUM 3.9 MMOL/L (3.5-5.1); SODIUM 144 MMOL/L (135-145); TOTAL CARBON DIOXIDE 37.9 MMOL/L (24-32); eGFR 62 ML/MIN
[2019-05-20 07:00] VITALS: BP 152/98
[2019-05-20] MEDS: metoprolol tartrate 50mg tablet PO SCH (08:00)
[2019-05-20] MEDS: furosemide 40mg/4ml inj IV SCH (08:00)
[2019-05-20] MEDS: K and/or MAG REPLACEMENT MC SCH (08:00)
[2019-05-20] MEDS: budesonide 0.5mg/2ml UD nebule IH SCH (08:00)
[2019-05-20] MEDS: loratadine 10mg tablet PO SCH (08:01)
[2019-05-20] MEDS: spironolactone 25 MG tablet PO SCH (08:01)
[2019-05-20 08:02] VITALS: BP_SYST 152
[2019-05-20] MEDS: lisinopril 20mg tablet PO SCH (08:02)
[2019-05-20] MEDS: nicotine 14mg patch - 24hr TD SCH (08:03)
[2019-05-20] MEDS: enoxaparin 40mg/0.4ml syringe SUBCUT SCH (08:03)
[2019-05-20] MEDS: nitroGLYCERIN 0.4mg/hour patch TD SCH (08:04)
[2019-05-20] MEDS ORDERED: SPIR25TA PO (08:47)
[2019-05-20] MEDS ORDERED: METO50TA16 PO (08:47)
[2019-05-20] MEDS ORDERED: FURO40TA4 PO (08:47)
[2019-05-20] MEDS ORDERED: ALBU17AE26 IH (08:47)
[2019-05-20] MEDS ORDERED: LISI-600 PO (08:47)
--- NOTE | 2019-05-20 09:30 | NUR ---
Paged administrator social welfare for my patient requesting to go over SSI paperwork before discharge.
--- NOTE | 2019-05-20 13:30 | NUR ---
Patient stable for discharge per MD orders. All discharge instructions reviewed and all questions answered appropriately. Belongings collected and sent with the patient. Patient's belongings from security were collected as well for the patient. Follow up appointment made at [facility] on 05/31/19 at 0920. PIV discontinued and cannula intact. satellite project site monitor discontinued. Patient picked up via private vehicle and wheeled down to lobby.
== END 2019-05-20 13:30 | disposition home or self-care (01) | DRG 133 ==
LOC: ER 06:43 → ED HOLD 09:42 → PCU 3S 14:36
PROVIDERS: ADMIT Internal Medicine; ATTEND Internal Medicine
DX: J96.01 Acute respiratory failure with hypoxia (principal); I21.4 Non-ST elevation (NSTEMI) myocardial infarction; I50.23 Acute on chronic systolic (congestive) heart failure; N17.9 Acute kidney failure, unspecified; I11.0 Hypertensive heart disease with heart failure; E11.9 Type 2 diabetes mellitus without complications; F17.210 Nicotine dependence, cigarettes, uncomplicated; E87.6 Hypokalemia; F12.90 Cannabis use, unspecified, uncomplicated; F15.90 Other stimulant use, unspecified, uncomplicated; J44.9 Chronic obstructive pulmonary disease, unspecified; Z59.0 Homelessness; Z79.899 Other long term (current) drug therapy; Z85.118 Personal history of other malignant neoplasm of bronchus and lung; Z85.41 Personal history of malignant neoplasm of cervix uteri; Z90.49 Acquired absence of other specified parts of digestive tract
CPT/HCPCS: 36415; 36600; 71045; 80048; 80053; 80305; 82803; 83605; 83735; 83880; 84132; 84484; 85018; 85025; 85610; 85730; 87040; 93005; 94640; 94760; 96365; 96368; 96375; 99291; G0378; J0692; J1650; J1940; J1956; J2930; J3490; J7626

== ENCOUNTER 2019-10-31 21:56 | Inpatient (IN) | payer MEDICAID ==
[~2019-10-31] VITALS: Ht 162.6 cm; Wt 59.1 kg
[~2019-10-31 21:56] MED LIST changes: -ADV50100 INH; -ALBU18HF2 IH; -CARV25TA PO; +FLUT1DIS INH; -FURO20TA4 PO; +METO50TA16 PO; -NICO-631 TD; +NICO-731 TOP; -PANT40TA4 PO; -POTA-82 PO; -PRED20TA PO; +SPIR25TA PO
[2019-10-31] MEDS ORDERED: ipratropium/albuterol 3ml nebule NEB ONE (22:10)
--- NOTE | 2019-10-31 22:25 | NUR ---
PT SITTING IN BED, RA, PT IN NO APPARENT DISTRESS. NO USE OF ACCESSORY MUSCLES
[2019-10-31] MEDS ORDERED: methylPREDNISolone sod succ 125mg/2ml vial IV ONE (22:55)
[2019-10-31 23:02] LABS: BASOPHILS % (AUTO) 0.4 % (0-1); EOSINOPHILS # (AUTO) 0.1 X10'3 (0-0.9); EOSINOPHILS % (AUTO) 1.3 % (0-6); HEMATOCRIT 38.9 % (35.0-45.0); MEAN CORPUSCULAR HEMOGLOBIN 31.9 PG (27.0-31.0); MEAN CORPUSCULAR HGB CONC 33.5 g/dL (33.0-36.5); MEAN CORPUSCULAR VOLUME 95.3 FL (78-98); MEAN PLATELET VOLUME 8.3 FL (7.4-10.4); MONOCYTES # (AUTO) 0.7 X10'3 (0-0.9); NEUTROPHILS # (AUTO) 8.5 X10'3 (1.8-7.7); NEUTROPHILS % (AUTO) 81.3 % (42-75); PLATELET COUNT 206 X10'3 (140-440); RED BLOOD COUNT 4.08 X10'6 (4.20-5.60); RED CELL DISTRIBUTION WIDTH 14.3 % (11.5-14.5); WHITE BLOOD COUNT 10.4 X10'3 (4.5-11.0)
[2019-10-31 23:18] LABS: ALANINE AMINOTRANSFERASE 38 U/L (12-78); ALBUMIN/GLOBULIN RATIO 0.8 (1.1-1.5); ALKALINE PHOSPHATASE 100 IU/L (46-116); ANION GAP 8 (8-16); ASPARTATE AMINO TRANSFERASE 17 U/L (10-37); BILIRUBIN,TOTAL 0.4 MG/DL (0.1-1.0); BLOOD UREA NITROGEN 21 MG/DL (7-18); BUN/CREATININE RATIO 26.3 (6.6-38.0); CALCIUM 8.6 MG/DL (8.5-10.1); CHLORIDE 103 MMOL/L (99-107); GLUCOSE 148 MG/DL (70-104); POTASSIUM 4.2 MMOL/L (3.5-5.1); SODIUM 140 MMOL/L (135-145); TOTAL CARBON DIOXIDE 29.2 MMOL/L (24-32); TOTAL PROTEIN 6.6 G/DL (6.4-8.2); eGFR 75 ML/MIN
[2019-10-31] MEDS ORDERED: furosemide 10 MG/1 ML 10ml inj IV ONE (23:35)
[2019-10-31] MEDS ORDERED: aspirin 81mg tab.chew PO ONE (23:50)
[2019-11-01] MEDS ORDERED: CYCL-1 PO (00:45)
[2019-11-01] MEDS ORDERED: CARV25TA2 PO (00:45)
[2019-11-01] MEDS ORDERED: albuterol 2.5 MG/3 ML nebule NEB PRN ×2 (02:50→03:05)
[2019-11-01] MEDS ORDERED: potassium CL 10mEq/100ml bag 100 ML IV PRN ×2 (02:50)
[2019-11-01] MEDS ORDERED: acetaminophen 325mg tablet PO PRN (02:50)
[2019-11-01] MEDS ORDERED: magnesium hydroxide 30ml (MOM) UD suspension PO PRN (02:50)
[2019-11-01] MEDS ORDERED: cyclobenzaprine 10mg tablet PO PRN ×2 (02:50→03:31)
[2019-11-01] MEDS ORDERED: mag hydrox/Alum hydrox/simeth 30ml oral suspension PO PRN (02:50)
[2019-11-01] MEDS ORDERED: ondansetron/PF 4mg/2ml inj IV PRN (02:50)
[2019-11-01] MEDS ORDERED: potassium Cl 20 mEq SR tablet PO PRN ×2 (02:50)
--- NOTE | 2019-11-01 03:14 | NUR ---
SPOKE WITH VENITA PARRISH REGARDING PT HTN, VERBAL ORDER TO START COREG EARLY
[2019-11-01] MEDS ORDERED: carVEDilol 12.5mg tablet PO ONE (03:15)
[2019-11-01] MEDS ORDERED: carVEDilol 12.5mg tablet PO SCH (03:15)
[2019-11-01 03:30] VITALS: BP 197/89
[2019-11-01] MEDS: carVEDilol 12.5mg tablet PO SCH ×2 (03:31→20:26)
--- NOTE | 2019-11-01 06:51 | NUR ---
Problems reprioritized. Patient report given, questions answered & plan of care reviewed with DOMO.
--- NOTE | 2019-11-01 06:53 | NUR ---
Patient in room JOAN 340. I have received report from Geraldine AGUILAR and had the opportunity to ask questions and assume patient care.
[2019-11-01 07:00] VITALS: BP 186/102
[2019-11-01] MEDS: furosemide 20 MG/2 ML vial IV SCH ×2 (07:51→20:13)
[2019-11-01] MEDS: cephalexin 250mg capsule PO SCH ×2 (07:52→13:34)
[2019-11-01] MEDS: loratadine 10mg tablet PO SCH (07:52)
[2019-11-01] MEDS: spironolactone 25 MG tablet PO SCH (07:54)
[2019-11-01] MEDS: heparin, porcine 5000 units/ml vial SQ SCH ×2 (07:55→20:13)
[2019-11-01] MEDS: lisinopril 20mg tablet PO SCH ×2 (07:55→20:25)
[2019-11-01] MEDS: K and/or MAG REPLACEMENT MC SCH ×2 (08:00→20:00)
[2019-11-01] MEDS: budesonide 0.5mg/2ml UD nebule IH SCH ×2 (09:20→19:30)
[2019-11-01] MEDS: albuterol 2.5 MG/3 ML nebule NEB SCH ×3 (09:20→23:10)
[2019-11-01 11:00] VITALS: BP 192/83
--- NOTE | 2019-11-01 11:39 | NUR ---
PAGER ID: [phone] MESSAGE: Ana Kurtz#[phone]- FYI - Pt's BP at [id number] HR85 & at 1100 192/83 HR114. Thank you Mariajose Torrez [phone]
[2019-11-01 12:30] VITALS: BP 152/87
[2019-11-01] MEDS: ipratropium/albuterol 3ml nebule NEB SCH ×3 (15:17→23:11)
--- NOTE | 2019-11-01 18:48 | NUR ---
Problems reprioritized. Patient report given, questions answered & plan of care reviewed with Camelia Denise RN.
--- NOTE | 2019-11-01 18:50 | NUR ---
Patient in room JOAN 340. I have received report from DOMO AGUILAR and had the opportunity to ask questions and assume patient care.
[2019-11-01 20:00] VITALS: BP 152/85
[2019-11-01] MEDS: methylPREDNISolone sod succ/PF 40mg inj. IV SCH (20:12)
[2019-11-01] MEDS: lactobacillus rhamnosus 10,000 MMU CELLS/CAPSULE PO SCH (20:25)
[2019-11-02] VITALS: BP 158/94
[2019-11-02] MEDS: ipratropium/albuterol 3ml nebule NEB SCH ×6 (03:02→23:00)
[2019-11-02 05:21] LABS: ALANINE AMINOTRANSFERASE 33 U/L (12-78); ALBUMIN 3.2 G/DL (3.4-5.0); ALBUMIN/GLOBULIN RATIO 0.8 (1.1-1.5); ALKALINE PHOSPHATASE 99 IU/L (46-116); ANION GAP 6 (8-16); ASPARTATE AMINO TRANSFERASE 15 U/L (10-37); BILIRUBIN,TOTAL 0.2 MG/DL (0.1-1.0); BLOOD UREA NITROGEN 37 MG/DL (7-18); BUN/CREATININE RATIO 39.8 (6.6-38.0); CALCIUM 9.4 MG/DL (8.5-10.1); CHLORIDE 99 MMOL/L (99-107); CREATININE 0.93 MG/DL (0.40-0.90); GLUCOSE 187 MG/DL (70-104); POTASSIUM 4.2 MMOL/L (3.5-5.1); SODIUM 136 MMOL/L (135-145); TOTAL CARBON DIOXIDE 30.7 MMOL/L (24-32); TOTAL PROTEIN 7.3 G/DL (6.4-8.2); eGFR 63 ML/MIN
[2019-11-02 05:29] LABS: BASOPHILS % (AUTO) 0.2 % (0-1); EOSINOPHILS % (AUTO) 0 % (0-6); HEMATOCRIT 44.5 % (35.0-45.0); HEMOGLOBIN 14.7 g/dl (12.0-16.0); LYMPHOCYTES # (AUTO) 0.7 X10'3 (1.1-4.8); LYMPHOCYTES % (AUTO) 3.4 % (21-51); MEAN CORPUSCULAR HEMOGLOBIN 31.6 PG (27.0-31.0); MEAN CORPUSCULAR HGB CONC 32.9 g/dL (33.0-36.5); MEAN PLATELET VOLUME 9.2 FL (7.4-10.4); MONOCYTES # (AUTO) 0.4 X10'3 (0-0.9); MONOCYTES % (AUTO) 2.2 % (2-12); NEUTROPHILS # (AUTO) 17.8 X10'3 (1.8-7.7); NEUTROPHILS % (AUTO) 94.2 % (42-75); PLATELET COUNT 245 X10'3 (140-440); RED BLOOD COUNT 4.63 X10'6 (4.20-5.60); WHITE BLOOD COUNT 18.9 X10'3 (4.5-11.0)
--- NOTE | 2019-11-02 06:26 | NUR ---
Problems reprioritized. Patient report given, questions answered & plan of care reviewed with DOMO AGUILAR.
--- NOTE | 2019-11-02 06:34 | NUR ---
Patient in room JOAN 340. I have received report from Camelia Denise RN and had the opportunity to ask questions and assume patient care.
[2019-11-02] MEDS: budesonide 0.5mg/2ml UD nebule IH SCH ×2 (07:08→19:30)
[2019-11-02] MEDS: methylPREDNISolone sod succ/PF 40mg inj. IV SCH ×2 (07:33→20:33)
[2019-11-02] MEDS: furosemide 20 MG/2 ML vial IV SCH ×2 (07:33→20:37)
[2019-11-02] MEDS: lactobacillus rhamnosus 10,000 MMU CELLS/CAPSULE PO SCH ×2 (07:34→20:32)
[2019-11-02] MEDS: loratadine 10mg tablet PO SCH (07:34)
[2019-11-02] MEDS: lisinopril 20mg tablet PO SCH ×2 (07:34→20:32)
[2019-11-02] MEDS: heparin, porcine 5000 units/ml vial SQ SCH ×2 (07:35→20:41)
[2019-11-02] MEDS: carVEDilol 12.5mg tablet PO SCH ×2 (07:35→20:31)
[2019-11-02 08:00] VITALS: BP 156/91
[2019-11-02] MEDS: K and/or MAG REPLACEMENT MC SCH ×2 (08:00→20:00)
[2019-11-02] MEDS: spironolactone 25 MG tablet PO SCH (10:36)
[2019-11-02 10:41] VITALS: BP 131/86
[2019-11-02] MEDS: levoFLOXACIN 500mg tablet PO SCH (14:19)
--- NOTE | 2019-11-02 16:00 | NUR ---
SKIN CHECK CLEAR, OTHER THAN PT HAS RIGHT LEG CELLULITES WHICH IS ADMIT DX. Addendum: 11/02/19 at 1601 by Mariajose Strickland RN Amended: Links added.
[2019-11-02] MEDS: nicotine 14mg patch - 24hr TD SCH (17:19)
--- NOTE | 2019-11-02 17:35 | NUR ---
Pt caught smoking while on my break. Pt states she lied about the amount of cigs smoked in a day. She smokes daily 3/4 pk of a day. Pt apologized and states she wont do it again. Change aware of issue.
--- NOTE | 2019-11-02 18:49 | NUR ---
Problems reprioritized. Patient report given, questions answered & plan of care reviewed with Camelia Denise RN.
--- NOTE | 2019-11-02 18:50 | NUR ---
Patient in room JOAN 340. I have received report from DOMO AGUILAR and had the opportunity to ask questions and assume patient care.
[2019-11-02 20:00] VITALS: BP 152/80
[2019-11-03] VITALS: BP 129/62
[2019-11-03] MEDS: ipratropium/albuterol 3ml nebule NEB SCH ×3 (03:00→11:49)
[2019-11-03 05:20] LABS: BASOPHILS # (AUTO) 0.1 X10'3 (0-0.2); BASOPHILS % (AUTO) 0.7 % (0-1); EOSINOPHILS % (AUTO) 0 % (0-6); HEMOGLOBIN 14.3 g/dl (12.0-16.0); LYMPHOCYTES # (AUTO) 0.7 X10'3 (1.1-4.8); LYMPHOCYTES % (AUTO) 3.3 % (21-51); MEAN CORPUSCULAR HEMOGLOBIN 31.7 PG (27.0-31.0); MEAN CORPUSCULAR HGB CONC 33.2 g/dL (33.0-36.5); MEAN CORPUSCULAR VOLUME 95.5 FL (78-98); MONOCYTES # (AUTO) 0.4 X10'3 (0-0.9); MONOCYTES % (AUTO) 1.9 % (2-12); NEUTROPHILS # (AUTO) 19.2 X10'3 (1.8-7.7); NEUTROPHILS % (AUTO) 94.1 % (42-75); PLATELET COUNT 263 X10'3 (140-440); RED CELL DISTRIBUTION WIDTH 14.3 % (11.5-14.5); WHITE BLOOD COUNT 20.4 X10'3 (4.5-11.0)
[2019-11-03 05:27] LABS: ALANINE AMINOTRANSFERASE 33 U/L (12-78); ALBUMIN 3.2 G/DL (3.4-5.0); ALBUMIN/GLOBULIN RATIO 0.8 (1.1-1.5); ALKALINE PHOSPHATASE 90 IU/L (46-116); ANION GAP 8 (8-16); ASPARTATE AMINO TRANSFERASE 13 U/L (10-37); BILIRUBIN,TOTAL 0.2 MG/DL (0.1-1.0); BLOOD UREA NITROGEN 40 MG/DL (7-18); BUN/CREATININE RATIO 37.4 (6.6-38.0); CALCIUM 9.2 MG/DL (8.5-10.1); CHLORIDE 98 MMOL/L (99-107); CREATININE 1.07 MG/DL (0.40-0.90); GLUCOSE 192 MG/DL (70-104); SODIUM 137 MMOL/L (135-145); TOTAL CARBON DIOXIDE 31.1 MMOL/L (24-32); TOTAL PROTEIN 7.1 G/DL (6.4-8.2); eGFR 54 ML/MIN
--- NOTE | 2019-11-03 06:26 | NUR ---
Problems reprioritized. Patient report given, questions answered & plan of care reviewed with MAGNOLIA AGUILAR.
--- NOTE | 2019-11-03 06:38 | NUR ---
Patient in room JOAN 340. I have received report from LAUREN Wetzel and had the opportunity to ask questions and assume patient care.
[2019-11-03 07:00] VITALS: BP 157/88
[2019-11-03] MEDS: K and/or MAG REPLACEMENT MC SCH (08:00)
[2019-11-03] MEDS: lactobacillus rhamnosus 10,000 MMU CELLS/CAPSULE PO SCH (08:19)
[2019-11-03] MEDS: lisinopril 20mg tablet PO SCH (08:20)
[2019-11-03] MEDS: furosemide 20 MG/2 ML vial IV SCH (08:21)
[2019-11-03] MEDS: nicotine 14mg patch - 24hr TD SCH (08:21)
[2019-11-03] MEDS: methylPREDNISolone sod succ/PF 40mg inj. IV SCH (08:22)
[2019-11-03] MEDS: spironolactone 25 MG tablet PO SCH (08:22)
[2019-11-03] MEDS: heparin, porcine 5000 units/ml vial SQ SCH (08:22)
[2019-11-03] MEDS: levoFLOXACIN 500mg tablet PO SCH (08:22)
[2019-11-03] MEDS: carVEDilol 12.5mg tablet PO SCH (08:23)
[2019-11-03] MEDS: loratadine 10mg tablet PO SCH (08:35)
[2019-11-03 11:00] VITALS: BP 116/69
== END 2019-11-03 14:45 | disposition home or self-care (01) | DRG 194 ==
LOC: ER 21:57 → ED HOLD 11-01 02:47 → SUR 3N 11-01 03:58
PROVIDERS: ADMIT Internal Medicine; ATTEND Internal Medicine
DX: I11.0 Hypertensive heart disease with heart failure (principal); I50.23 Acute on chronic systolic (congestive) heart failure; J44.1 Chronic obstructive pulmonary disease with (acute) exacerbation; Z80.1 Family history of malignant neoplasm of trachea, bronchus and lung; E11.9 Type 2 diabetes mellitus without complications; Z80.49 Family history of malignant neoplasm of other genital organs; Z85.118 Personal history of other malignant neoplasm of bronchus and lung; Z85.41 Personal history of malignant neoplasm of cervix uteri; Z87.891 Personal history of nicotine dependence; Z59.0 Homelessness
CPT/HCPCS: 36415; 71045; 80053; 83880; 84484; 85025; 87081; 93005; 93306; 94640; 94760; 99285; G0378; J1644; J1940; J2920; J2930; J7626

== ENCOUNTER 2020-02-06 20:24 | Emergency (ER) | payer MEDICAID ==
[~2020-02-06] VITALS: Ht 162.6 cm; Wt 68.2 kg
[~2020-02-06 20:24] MED LIST changes: +CARV25TA2 PO; +CYCL-1 PO; -SPIR25TA PO
--- NOTE | 2020-02-06 20:53 | NUR ---
Pt tripoding and audible wheezing and course cough. Pt states missing Lasix she should be taking at night the last few nights. Spo2 at 93 on RA. 2L NC given to pt, Spo2 at 99 currently with some relief of SOB stated by pt.
[2020-02-06 21:04] LABS: BASOPHILS % (AUTO) 0.3 % (0-1); EOSINOPHILS # (AUTO) 0.1 X10'3 (0-0.9); EOSINOPHILS % (AUTO) 0.7 % (0-6); HEMATOCRIT 40.1 % (35.0-45.0); HEMOGLOBIN 13.1 g/dl (12.0-16.0); LYMPHOCYTES # (AUTO) 1.1 X10'3 (1.1-4.8); LYMPHOCYTES % (AUTO) 7.7 % (21-51); MEAN CORPUSCULAR HEMOGLOBIN 31.9 PG (27.0-31.0); MEAN CORPUSCULAR HGB CONC 32.7 g/dL (33.0-36.5); MEAN CORPUSCULAR VOLUME 97.5 FL (78-98); MEAN PLATELET VOLUME 8.4 FL (7.4-10.4); MONOCYTES # (AUTO) 0.7 X10'3 (0-0.9); MONOCYTES % (AUTO) 5.4 % (2-12); NEUTROPHILS # (AUTO) 11.9 X10'3 (1.8-7.7); NEUTROPHILS % (AUTO) 85.9 % (42-75); PLATELET COUNT 183 X10'3 (140-440); RED BLOOD COUNT 4.11 X10'6 (4.20-5.60); RED CELL DISTRIBUTION WIDTH 13.9 % (11.5-14.5); WHITE BLOOD COUNT 13.8 X10'3 (4.5-11.0)
[2020-02-06 21:17] LABS: ALANINE AMINOTRANSFERASE 46 U/L (12-78); ALBUMIN 3.3 G/DL (3.4-5.0); ALKALINE PHOSPHATASE 84 IU/L (46-116); ANION GAP 6 (8-16); ASPARTATE AMINO TRANSFERASE 20 U/L (10-37); BILIRUBIN,TOTAL 0.5 MG/DL (0.1-1.0); BLOOD UREA NITROGEN 22 MG/DL (7-18); BUN/CREATININE RATIO 21.6 (6.6-38.0); CALCIUM 8.7 MG/DL (8.5-10.1); CHLORIDE 105 MMOL/L (99-107); CREATININE 1.02 MG/DL (0.40-0.90); GLUCOSE 195 MG/DL (70-104); POTASSIUM 4.6 MMOL/L (3.5-5.1); SODIUM 141 MMOL/L (135-145); TOTAL CARBON DIOXIDE 29.6 MMOL/L (24-32); TOTAL PROTEIN 6.5 G/DL (6.4-8.2); eGFR 56 ML/MIN
--- NOTE | 2020-02-06 21:19 | NUR ---
Attempted IV, failed. Pt requests no more IV attempts unless necessary.
[2020-02-06] MEDS ORDERED: hydrALAZINE 20mg/ml inj. IV ONE (22:15)
[2020-02-06] MEDS ORDERED: furosemide 10 MG/1 ML 10ml inj IV ONE (22:15)
[2020-02-06] MEDS ORDERED: ipratropium/albuterol 3ml nebule NEB ONE (22:15)
[2020-02-06 22:57] LABS: LACTATE DEHYDROGENASE 239 U/L (81-234)
--- NOTE | 2020-02-07 00:18 | NUR ---
Pt medicated and breathing treatment given. Oxygen removed and after 10 minutes pt still SPO2 at 96%. Advised Dr. Forrester who stated pt up for discharge.
[2020-02-07 00:19] VITALS: BP 184/85
== END 2020-02-07 00:22 | disposition home or self-care (01) ==
LOC: ER 20:24
DX: I50.9 Heart failure, unspecified (principal); J44.9 Chronic obstructive pulmonary disease, unspecified; E11.9 Type 2 diabetes mellitus without complications; I10 Essential (primary) hypertension; F12.10 Cannabis abuse, uncomplicated; F15.10 Other stimulant abuse, uncomplicated; Z87.448 Personal history of other diseases of urinary system; Z59.0 Homelessness; Z79.899 Other long term (current) drug therapy
CPT/HCPCS: 36415; 71046; 80053; 83605; 83615; 83880; 84145; 85025; 87040; 93005; 94640; 96374; 96375; 99285; J0360; J1940; 94760

== ENCOUNTER 2020-03-02 07:21 | Inpatient (IN) | payer MEDICAID ==
[~2020-03-02] VITALS: Ht 154.9 cm; Wt 71.1 kg
[2020-03-02] MEDS ORDERED: furosemide 40mg/4ml inj IV ONE (07:25)
[2020-03-02] MEDS ORDERED: methylPREDNISolone sod succ 125mg/2ml vial IV ONE (07:25)
[2020-03-02 07:59] LABS: BASOPHILS % (AUTO) 0.4 % (0-1); EOSINOPHILS # (AUTO) 0.1 X10'3 (0-0.9); EOSINOPHILS % (AUTO) 1.4 % (0-6); HEMATOCRIT 37.4 % (35.0-45.0); HEMOGLOBIN 12.5 g/dl (12.0-16.0); LYMPHOCYTES # (AUTO) 0.7 X10'3 (1.1-4.8); LYMPHOCYTES % (AUTO) 9.4 % (21-51); MEAN CORPUSCULAR HGB CONC 33.5 g/dL (33.0-36.5); MEAN CORPUSCULAR VOLUME 98.5 FL (78-98); MEAN PLATELET VOLUME 8.4 FL (7.4-10.4); MONOCYTES # (AUTO) 0.8 X10'3 (0-0.9); MONOCYTES % (AUTO) 11.2 % (2-12); NEUTROPHILS # (AUTO) 5.6 X10'3 (1.8-7.7); NEUTROPHILS % (AUTO) 77.6 % (42-75); PLATELET COUNT 188 X10'3 (140-440); RED BLOOD COUNT 3.79 X10'6 (4.20-5.60); RED CELL DISTRIBUTION WIDTH 13.9 % (11.5-14.5); WHITE BLOOD COUNT 7.3 X10'3 (4.5-11.0)
[2020-03-02 08:01] LABS: ABG BASE EXCESS 6.6 mmol/L (-2.0-2.0); ABG HCO3 34.6 mmol/L (22.0-26.0); ABG OXYGEN SATURATION 97.9 % (94-97); ABG PCO2 (T) 65.4 mmHg (32.0-45.0); ABG PO2 (T) 113.4 mmHg (75.0-100.0); ALLEN'S TEST POSITIVE; FCOHb 0.9 % (0.0-3.9); FLOW 3 L/min; FMetHb 0.2 % (0.0-1.5); FO2Hb 96.8 % (94-97); PATIENT TEMPERATURE 36.7; TOTAL HEMOGLOBIN 13.1 G/dl (12.0-16.0)
[2020-03-02 08:21] LABS: ALANINE AMINOTRANSFERASE 28 U/L (12-78); ALBUMIN/GLOBULIN RATIO 0.9 (1.1-1.5); ALKALINE PHOSPHATASE 85 IU/L (46-116); ANION GAP 5 (8-16); ASPARTATE AMINO TRANSFERASE 11 U/L (10-37); BILIRUBIN,TOTAL 0.4 MG/DL (0.1-1.0); BLOOD UREA NITROGEN 16 MG/DL (7-18); BUN/CREATININE RATIO 22.2 (6.6-38.0); CALCIUM 8.4 MG/DL (8.5-10.1); CHLORIDE 102 MMOL/L (99-107); CREATININE 0.72 MG/DL (0.40-0.90); GLUCOSE 151 MG/DL (70-104); POTASSIUM 3.6 MMOL/L (3.5-5.1); SODIUM 142 MMOL/L (135-145); TOTAL CARBON DIOXIDE 34.9 MMOL/L (24-32); TOTAL PROTEIN 6.5 G/DL (6.4-8.2); eGFR 84 ML/MIN
[2020-03-02 08:26] LABS: D-DIMER 0.52 MG/L FEU (0-0.50); PARTIAL THROMBOPLASTIN TIME 25 SECONDS (22-32)
[2020-03-02 08:36] LABS: C-REACTIVE PROTEIN 4.34 MG/DL (0.0-0.5); FERRITIN 73 NG/ML (8-252); LACTATE DEHYDROGENASE 176 U/L (81-234)
[2020-03-02] MEDS ORDERED: ipratropium/albuterol 3ml nebule NEB ONE (09:15)
[2020-03-02] MEDS ORDERED: azithromycin/NS 500mg/250ml 250 ML IV ONE (09:15)
[2020-03-02] MEDS ORDERED: CefTRIAXone/D5W-Rocephin 1gm 50 ML IV ONE (09:15)
[2020-03-02 09:43] LABS: CLARITY,URINE CLEAR (Clear); COLOR,URINE STRAW (Yellow); GLUCOSE, URINE NEGATIVE (Neg); KETONES,URINE NEGATIVE (Neg); LEUKOCYTE ESTERASE ,URINE NEGATIVE (Neg); NITRITES, URINE NEGATIVE (Neg); OCCULT BLOOD,URINE NEGATIVE (Neg); PROTEIN,URINE NEGATIVE (Neg); UROBILINOGEN,URINE 0.2 E.U/dL (0.2-1.0)
--- NOTE | 2020-03-02 09:47 | NUR ---
RT at bedside
[2020-03-02 09:48] LABS: UA COLLECTION TYPE CLN CATCH MIDSTREAM
[2020-03-02] MEDS ORDERED: HYDROcodone/acetaminophen 10/325mg tab PO PRN (11:00)
[2020-03-02] MEDS ORDERED: morphine 2 MG/ML inj. syringe IV PRN ×2 (11:00)
[2020-03-02] MEDS ORDERED: acetaminophen 325mg tablet PO PRN ×2 (11:00)
[2020-03-02] MEDS: furosemide 20 MG/2 ML vial IV SCH ×2 (11:00→19:50)
[2020-03-02] MEDS ORDERED: HYDROcodone/acetaminophen 5mg/325mg tablet PO PRN (11:00)
[2020-03-02] MEDS ORDERED: ondansetron/PF 4mg/2ml inj IV PRN (11:00)
[2020-03-02] MEDS ORDERED: magnesium hydroxide 30ml (MOM) UD suspension PO PRN (11:00)
[2020-03-02] MEDS ORDERED: mag hydrox/Alum hydrox/simeth 30ml oral suspension PO PRN (11:00)
[2020-03-02] MEDS: nicotine 14mg patch - 24hr TD SCH (11:52)
[2020-03-02] MEDS ORDERED: TIOT4MIS2 PO (12:32)
[2020-03-02] MEDS ORDERED: LISI40TA4 PO (12:32)
[2020-03-02] MEDS ORDERED: ALBU8.5H8 PO (12:32)
[2020-03-02] MEDS ORDERED: FURO40TA4 PO (12:32)
[2020-03-02] MEDS ORDERED: IBUP-1985 PO (12:32)
[2020-03-02] MEDS ORDERED: UMEC1DIS PO (12:32)
[2020-03-02] MEDS ORDERED: ALBU2.5V13 PO (12:32)
--- NOTE | 2020-03-02 13:32 | NUR ---
PT MOVED TO FT BED B. STABLE AND IN NAD. UP TO BATHROOM WO ASSIST. GIVEN MEAL
--- NOTE | 2020-03-02 16:23 | NUR ---
PT CO 12/30 DUNCAN. HAD BEEN UP TO BATHROOM AND WAS OFF O2. SATS 78. PLACED BACK ON 3L SATS UP TO 92%. GAVE NO FOR DUNCAN.
[2020-03-02] MEDS ORDERED: albuterol 2.5 MG/3 ML nebule NEB PRN (16:50)
--- NOTE | 2020-03-02 17:34 | NUR ---
Patient resting on left side. eyes closed. RR even and unlabored.
--- NOTE | 2020-03-02 19:15 | NUR ---
while going through pt's belongings, 2 knives and some marajuana were found, security called to dispose of the marajuana and knives were stored in locker to be returned on discharge.
[2020-03-02] MEDS: guaiFENesin ER 600mg tablet PO SCH (19:49)
[2020-03-02] MEDS: metoprolol tartrate 50mg tablet PO SCH (19:49)
[2020-03-02 22:00] VITALS: BP 107/71
[2020-03-03 02:00] VITALS: BP 102/71
[2020-03-03 06:00] VITALS: BP 109/72
--- NOTE | 2020-03-03 06:58 | NUR ---
Problems reprioritized. Patient report given, questions answered & plan of care reviewed with LAUREN Alfaro. Patient resting in bed, no signs of distress. Medications administered as ordered, care plan followed, safety meausures in place. Call light and personal items within reach. Will continue to monitor for remainder of shift.
--- NOTE | 2020-03-03 07:26 | NUR ---
Patient in room PCU 3023. I have received report from LAUREN Alfaro and had the opportunity to ask questions and assume patient care.
[2020-03-03 07:56] LABS: ANION GAP 2 (8-16); BLOOD UREA NITROGEN 26 MG/DL (7-18); BUN/CREATININE RATIO 32.5 (6.6-38.0); CALCIUM 9.2 MG/DL (8.5-10.1); CHLORIDE 104 MMOL/L (99-107); GLUCOSE 131 MG/DL (70-104); POTASSIUM 3.6 MMOL/L (3.5-5.1); SODIUM 144 MMOL/L (135-145); TOTAL CARBON DIOXIDE 38.1 MMOL/L (24-32); eGFR 75 ML/MIN
[2020-03-03] MEDS: metoprolol tartrate 50mg tablet PO SCH ×2 (08:00→20:04)
[2020-03-03 08:18] LABS: BASOPHILS % (AUTO) 0.3 % (0-1); EOSINOPHILS % (AUTO) 0 % (0-6); HEMATOCRIT 38.6 % (35.0-45.0); HEMOGLOBIN 12.8 g/dl (12.0-16.0); LYMPHOCYTES # (AUTO) 0.6 X10'3 (1.1-4.8); LYMPHOCYTES % (AUTO) 4.4 % (21-51); MEAN CORPUSCULAR HEMOGLOBIN 32.3 PG (27.0-31.0); MEAN CORPUSCULAR HGB CONC 33.2 g/dL (33.0-36.5); MEAN CORPUSCULAR VOLUME 97.2 FL (78-98); MEAN PLATELET VOLUME 9.2 FL (7.4-10.4); MONOCYTES # (AUTO) 1.3 X10'3 (0-0.9); MONOCYTES % (AUTO) 9.4 % (2-12); NEUTROPHILS # (AUTO) 12.1 X10'3 (1.8-7.7); NEUTROPHILS % (AUTO) 85.9 % (42-75); PLATELET COUNT 230 X10'3 (140-440); RED BLOOD COUNT 3.97 X10'6 (4.20-5.60); RED CELL DISTRIBUTION WIDTH 13.5 % (11.5-14.5); WHITE BLOOD COUNT 14.1 X10'3 (4.5-11.0)
[2020-03-03] MEDS: guaiFENesin ER 600mg tablet PO SCH ×2 (09:35→20:05)
[2020-03-03] MEDS: nicotine 14mg patch - 24hr TD SCH ×2 (09:36→09:49)
[2020-03-03] MEDS: furosemide 20 MG/2 ML vial IV SCH ×2 (09:36→20:05)
[2020-03-03] MEDS: enoxaparin 40mg/0.4ml syringe SUBCUT SCH (09:37)
[2020-03-03] MEDS: lisinopril 10 MG tablet PO SCH (09:39)
[2020-03-03 11:00] VITALS: BP 110/75
--- NOTE | 2020-03-03 13:49 | NUR ---
PAGER ID: [phone] MESSAGE: [id number] RHONDA. SHE WOULD LIKE TO BE DISCHARGED. SHE STATES SHE WAS ASKED AND SAID NO. BUT, NOW SHE WOULD LIKE TO GO HOME. [facility] #[id number]
[2020-03-03] MEDS ORDERED: LORazepam 0.5 MG tablet PO PRN (14:40)
[2020-03-03 15:00] VITALS: BP 119/71
--- NOTE | 2020-03-03 15:05 | NUR ---
Dr Jones in to see Pt. Pt c/o anxiety and agitation. New order for Ativan PO PRN.
[2020-03-03 18:00] VITALS: BP 155/74
--- NOTE | 2020-03-03 18:40 | NUR ---
Problems reprioritized. Patient report given, questions answered & plan of care reviewed with LAUREN Dubois.Ativan was effective for pt. stated feeling better and less anxious.
[2020-03-03 22:27] VITALS: BP 115/58
--- NOTE | 2020-03-04 06:18 | NUR ---
Problems reprioritized. Patient report given, questions answered & plan of care reviewed with LAUREN Lewis.
[2020-03-04 06:29] LABS: BASOPHILS % (AUTO) 0.4 % (0-1); EOSINOPHILS # (AUTO) 0.1 X10'3 (0-0.9); EOSINOPHILS % (AUTO) 1.2 % (0-6); HEMATOCRIT 40.1 % (35.0-45.0); HEMOGLOBIN 13.5 g/dl (12.0-16.0); LYMPHOCYTES # (AUTO) 1.3 X10'3 (1.1-4.8); LYMPHOCYTES % (AUTO) 13.1 % (21-51); MEAN CORPUSCULAR HEMOGLOBIN 32.9 PG (27.0-31.0); MEAN CORPUSCULAR HGB CONC 33.6 g/dL (33.0-36.5); MEAN CORPUSCULAR VOLUME 97.8 FL (78-98); MEAN PLATELET VOLUME 8.1 FL (7.4-10.4); MONOCYTES # (AUTO) 0.9 X10'3 (0-0.9); MONOCYTES % (AUTO) 9.3 % (2-12); NEUTROPHILS # (AUTO) 7.7 X10'3 (1.8-7.7); PLATELET COUNT 253 X10'3 (140-440); RED CELL DISTRIBUTION WIDTH 13.8 % (11.5-14.5); WHITE BLOOD COUNT 10.1 X10'3 (4.5-11.0)
--- NOTE | 2020-03-04 06:29 | NUR ---
Patient in room PCU 3023. I have received report from Sherly AGUILAR and had the opportunity to ask questions and assume patient care.
[2020-03-04 06:34] LABS: ANION GAP 0 (8-16); BLOOD UREA NITROGEN 28 MG/DL (7-18); BUN/CREATININE RATIO 31.5 (6.6-38.0); CALCIUM 8.9 MG/DL (8.5-10.1); CHLORIDE 105 MMOL/L (99-107); CREATININE 0.89 MG/DL (0.40-0.90); GLUCOSE 109 MG/DL (70-104); POTASSIUM 3.9 MMOL/L (3.5-5.1); SODIUM 145 MMOL/L (135-145); TOTAL CARBON DIOXIDE 39.8 MMOL/L (24-32); eGFR 66 ML/MIN
--- NOTE | 2020-03-04 06:44 | NUR ---
Patient discharge into her own care with all of her belongings, patient IV out because infiltrated. Patient left with belongings and medications. Patient left after verbal education and left in a taxi cab to living establishment.
[2020-03-04 07:28] VITALS: BP 173/66
--- NOTE | 2020-03-04 08:07 | NUR ---
LAB VALUE TAKEN FROM MICRO REPORTED TO PRIMARY RN.
[2020-03-04] MEDS: lisinopril 10 MG tablet PO SCH (08:42)
[2020-03-04] MEDS: nicotine 14mg patch - 24hr TD SCH (08:43)
[2020-03-04] MEDS: guaiFENesin ER 600mg tablet PO SCH (08:43)
[2020-03-04] MEDS: metoprolol tartrate 50mg tablet PO SCH (08:43)
[2020-03-04] MEDS: furosemide 20 MG/2 ML vial IV SCH (08:44)
[2020-03-04] MEDS: enoxaparin 40mg/0.4ml syringe SUBCUT SCH (08:44)
[2020-03-04 11:00] VITALS: BP 135/88
[2020-03-04 15:00] VITALS: BP 175/86
[2020-03-04] MEDS ORDERED: GUAI600T45 PO (15:38)
[2020-03-04] MEDS ORDERED: FURO40TA4 PO (15:38)
== END 2020-03-04 17:23 | disposition home or self-care (01) | DRG 139 ==
LOC: ER 07:22 → ED HOLD 11:00 → UNDOADMIN 11:25 → ED HOLD 11:25 → PCU 3S 12:45 → ED HOLD 12:45 → PCU 3S 12:51 → ED HOLD 19:35 → PCU 3S 19:35
PROVIDERS: ADMIT Internal Medicine; ATTEND Internal Medicine
DX: J18.9 Pneumonia, unspecified organism (principal); I11.0 Hypertensive heart disease with heart failure; I50.813 Acute on chronic right heart failure; J44.0 Chronic obstructive pulmonary disease with (acute) lower respiratory infection; J44.1 Chronic obstructive pulmonary disease with (acute) exacerbation; J96.21 Acute and chronic respiratory failure with hypoxia; E11.9 Type 2 diabetes mellitus without complications; Z85.118 Personal history of other malignant neoplasm of bronchus and lung; Z85.41 Personal history of malignant neoplasm of cervix uteri; Z87.891 Personal history of nicotine dependence; Z20.828 Contact with and (suspected) exposure to other viral communicable diseases
CPT/HCPCS: 36415; 36600; 71045; 80048; 80053; 81003; 82728; 82803; 82948; 83605; 83615; 83880; 84145; 84484; 85018; 85025; 85379; 85730; 86140; 87040; 87081; 87635; 93005; 94640; 94760; 96365; 96375; 99285; C9803; G0378; J0456; J0696; J1650; J1940; J2930

== ENCOUNTER 2020-09-13 14:02 | Emergency (ER) | payer MEDICAID ==
[~2020-09-13] VITALS: Ht 162.6 cm; Wt 68.2 kg
[~2020-09-13 14:02] MED LIST changes: -ALBU17AE26 IH; +ALBU2.5V13 PO; +ALBU8.5H8 PO; -CYCL-1 PO; -FLUT1DIS INH; +FURO40TA4 PO; +GUAI600T45 PO; +IBUP-1985 PO; -LISI-600 PO; +LISI40TA13 PO; -METO50TA16 PO; -NICO-731 TOP; +TIOT4MIS2 PO; +UMEC1DIS PO
[2020-09-13] MEDS ORDERED: normal saline 1000ML IV soln IVB ONE (15:25)
[2020-09-13] MEDS ORDERED: ondansetron/PF 4mg/2ml inj IV ONE (15:25)
[2020-09-13 15:37] LABS: CLARITY,URINE CLEAR (Clear); COLOR,URINE STRAW (Yellow); GLUCOSE, URINE NEGATIVE (Neg); KETONES,URINE NEGATIVE (Neg); LEUKOCYTE ESTERASE ,URINE SMALL (Neg); NITRITES, URINE NEGATIVE (Neg); OCCULT BLOOD,URINE TRACE-INTACT (Neg); PH,URINE 5.5 (4.8-8.0); PROTEIN,URINE NEGATIVE (Neg); UROBILINOGEN,URINE 0.2 E.U/dL (0.2-1.0)
[2020-09-13 15:39] LABS: UA COLLECTION TYPE OTHER
[2020-09-13 15:47] LABS: BACTERIA,URINE FEW /HPF (Neg); MUCUS STRANDS NONE SEEN /LPF (Neg); RBC,URINE NONE SEEN /HPF (0-2); SQUAMOUS EPITHELIAL CELL,UR FEW /LPF (FEW); WBC CLUMPS,URINE FEW /HPF (NEGATIVE)
[2020-09-13 15:53] LABS: BASOPHILS # (AUTO) 0.1 X10'3 (0-0.2); BASOPHILS % (AUTO) 0.6 % (0-1); EOSINOPHILS # (AUTO) 0.1 X10'3 (0-0.9); EOSINOPHILS % (AUTO) 1.3 % (0-6); HEMATOCRIT 45.6 % (35.0-45.0); HEMOGLOBIN 15.3 g/dl (12.0-16.0); LYMPHOCYTES # (AUTO) 0.9 X10'3 (1.1-4.8); MEAN CORPUSCULAR HEMOGLOBIN 31.8 PG (27.0-31.0); MEAN CORPUSCULAR HGB CONC 33.4 g/dL (33.0-36.5); MEAN CORPUSCULAR VOLUME 95.2 FL (78-98); MEAN PLATELET VOLUME 8.7 FL (7.4-10.4); MONOCYTES # (AUTO) 0.7 X10'3 (0-0.9); MONOCYTES % (AUTO) 5.9 % (2-12); NEUTROPHILS # (AUTO) 9.4 X10'3 (1.8-7.7); NEUTROPHILS % (AUTO) 84.2 % (42-75); PLATELET COUNT 237 X10'3 (140-440); RED CELL DISTRIBUTION WIDTH 13.6 % (11.5-14.5); WHITE BLOOD COUNT 11.2 X10'3 (4.5-11.0)
[2020-09-13 16:01] LABS: URINE AMPHETAMINE SCREEN POSITIVE (Neg); URINE BARBITUATE SCREEN NEGATIVE (Neg); URINE BENZODIAZEPINES SCREEN NEGATIVE (Neg); URINE CANNABINOID SCREEN POSITIVE (Neg); URINE COCAINE SCREEN NEGATIVE (Neg); URINE METHADONE SCREEN NEGATIVE (Neg); URINE OPIATE SCREEN NEGATIVE (Neg); URINE PHENCYCLIDINE SCREEN NEGATIVE (Neg)
[2020-09-13 16:07] LABS: ALANINE AMINOTRANSFERASE 35 U/L (12-78); ALBUMIN 3.7 G/DL (3.4-5.0); ALKALINE PHOSPHATASE 90 IU/L (46-116); ANION GAP 8 (8-16); ASPARTATE AMINO TRANSFERASE 18 U/L (10-37); BILIRUBIN,TOTAL 0.3 MG/DL (0.1-1.0); BLOOD UREA NITROGEN 24 MG/DL (7-18); BUN/CREATININE RATIO 30.8 (6.6-38.0); CALCIUM 9.5 MG/DL (8.5-10.1); CHLORIDE 105 MMOL/L (99-107); CREATININE 0.78 MG/DL (0.40-0.90); ETHANOL < 0.010 GM/DL (0.0-0.010); GLUCOSE 145 MG/DL (70-104); LIPASE 107 U/L (73-393); POTASSIUM 3.8 MMOL/L (3.5-5.1); SODIUM 143 MMOL/L (135-145); TOTAL CARBON DIOXIDE 29.9 MMOL/L (24-32); TOTAL PROTEIN 7.5 G/DL (6.4-8.2); eGFR 77 ML/MIN
--- NOTE | 2020-09-13 16:47 | NUR ---
Anand MORGAN notified of BP 237/125.
[2020-09-13] MEDS ORDERED: cloNIDine 0.1 mg tablet PO ONE (17:30)
[2020-09-13] MEDS ORDERED: MECL-226 PO (18:22)
[2020-09-13 18:38] VITALS: BP 152/86
== END 2020-09-13 18:39 | disposition home or self-care (01) ==
LOC: ER 14:03
DX: R42 Dizziness and giddiness (principal); I11.0 Hypertensive heart disease with heart failure; I50.9 Heart failure, unspecified; F19.10 Other psychoactive substance abuse, uncomplicated; R11.0 Nausea; J44.9 Chronic obstructive pulmonary disease, unspecified; E11.9 Type 2 diabetes mellitus without complications; F12.90 Cannabis use, unspecified, uncomplicated; F15.90 Other stimulant use, unspecified, uncomplicated; Z87.440 Personal history of urinary (tract) infections; Z87.01 Personal history of pneumonia (recurrent); Z59.0 Homelessness; Z79.899 Other long term (current) drug therapy
CPT/HCPCS: 36415; 70450; 80053; 80305; 80320; 81001; 83690; 85025; 87077; 87088; 87186; 96374; 99285; J2405; J7030

== ENCOUNTER 2022-09-17 03:06 | Inpatient (IN) | payer MEDICAID ==
[~2022-09-17] VITALS: Ht 162.6 cm; Wt 72.7 kg
[2022-09-17] MEDS: vancomycin/NS 1 GM ADD-VANTAGE 250 ML IV SCH (01:00)
[~2022-09-17 03:06] MED LIST changes: +ALBU8.5H17 PO; -ALBU8.5H8 PO; +MECL-226 PO
[2022-09-17] MEDS ORDERED: furosemide 40mg/4ml inj IV ONE (03:15)
[2022-09-17] MEDS ORDERED: methylPREDNISolone sod succ 125mg/2ml vial IV ONE (03:15)
[2022-09-17] MEDS ORDERED: ipratropium/albuterol 3ml nebule NEB ONE (03:15)
[2022-09-17 03:42] LABS: BASOPHILS # (AUTO) 0.1 X10'3 (0-0.2); BASOPHILS % (AUTO) 1.5 % (0-1); EOSINOPHILS % (AUTO) 0.3 % (0-6); HEMATOCRIT 43.5 % (35.0-45.0); HEMOGLOBIN 14.4 g/dl (12.0-16.0); LYMPHOCYTES # (AUTO) 0.4 X10'3 (1.1-4.8); MEAN CORPUSCULAR HEMOGLOBIN 32.6 PG (27.0-31.0); MEAN CORPUSCULAR HGB CONC 33.2 g/dL (33.0-36.5); MEAN CORPUSCULAR VOLUME 98.2 FL (78-98); MEAN PLATELET VOLUME 8.4 FL (7.4-10.4); MONOCYTES # (AUTO) 0.7 X10'3 (0-0.9); MONOCYTES % (AUTO) 6.7 % (2-12); NEUTROPHILS # (AUTO) 8.5 X10'3 (1.8-7.7); NEUTROPHILS % (AUTO) 87.5 % (42-75); PLATELET COUNT 204 X10'3 (140-440); RED BLOOD COUNT 4.43 X10'6 (4.20-5.60); RED CELL DISTRIBUTION WIDTH 15.7 % (11.5-14.5); WHITE BLOOD COUNT 9.7 X10'3 (4.5-11.0)
[2022-09-17 03:53] LABS: ALANINE AMINOTRANSFERASE 38 U/L (12-78); ALBUMIN 3.5 G/DL (3.4-5.0); ALBUMIN/GLOBULIN RATIO 0.9 (1.1-1.5); ALKALINE PHOSPHATASE 99 IU/L (46-116); ANION GAP 10 (8-16); ASPARTATE AMINO TRANSFERASE 26 U/L (10-37); BILIRUBIN,TOTAL 0.4 MG/DL (0.1-1.0); BLOOD UREA NITROGEN 30 MG/DL (7-18); BUN/CREATININE RATIO 29.1 (10.0-20.0); CALCIUM 8.7 MG/DL (8.5-10.1); CHLORIDE 101 MMOL/L (99-107); CREATININE 1.03 MG/DL (0.40-0.90); GLUCOSE 124 MG/DL (70-104); POTASSIUM 4.1 MMOL/L (3.5-5.1); SODIUM 142 MMOL/L (135-145); TOTAL CARBON DIOXIDE 31.3 MMOL/L (24-32); TOTAL PROTEIN 7.4 G/DL (6.4-8.2); eGFR 55 ML/MIN
--- NOTE | 2022-09-17 03:53 | NUR ---
RT AT BEDSIDE, PT RECEIVING BREATHING TX
--- NOTE | 2022-09-17 04:03 | NUR ---
PT PLACED ON BIPAP 28% FIO2 PER DR CORBETT
--- NOTE | 2022-09-17 04:10 | NUR ---
DR NATHAN AT BEDSIDE
--- NOTE | 2022-09-17 04:16 | NUR ---
PT WAS INCONTINENT OF BOWEL AND BLADDER. PT CLEANED AND PLACED IN CLEAN BRIEF AND GIVEN PUREWICK
[2022-09-17] MEDS ORDERED: mag hydrox/Alum hydrox/simeth 30ml oral suspension PO PRN (04:20)
[2022-09-17] MEDS ORDERED: magnesium 4gm in 100ml NS 100 ML IV PRN (04:20)
[2022-09-17] MEDS ORDERED: magnesium 2GM in 50ml NS 50 ML IV PRN (04:20)
[2022-09-17] MEDS ORDERED: acetaminophen 325mg tablet PO PRN (04:20)
[2022-09-17] MEDS ORDERED: PERFLUTREN PROTEIN-A MICROSPHR (Optison) 0.22 MG/ML 3ML VIAL IV PRN (04:20)
[2022-09-17] MEDS ORDERED: ondansetron/PF 4mg/2ml inj IV PRN (04:20)
[2022-09-17] MEDS ORDERED: magnesium hydroxide 30ml (MOM) UD suspension PO PRN (04:20)
[2022-09-17] MEDS ORDERED: potassium Cl 20 mEq SR tablet PO PRN ×2 (04:20)
[2022-09-17] MEDS ORDERED: magnesium Cl slow-release 64mg tablet PO PRN (04:20)
[2022-09-17] MEDS ORDERED: potassium Cl 40MEQ/1/2NS 520ml 520 ML IV PRN (04:20)
[2022-09-17] MEDS ORDERED: MESSAGE TO PHARMACY PO ONE (04:25)
[2022-09-17] MEDS ORDERED: glucagon, human recombinant 1mg kit SUBCUT PRN (04:25)
[2022-09-17] MEDS ORDERED: DEXTROSE 15 GM of carb/4 tabs (each vial/BOTTLE has 4 tablets) PO PRN ×2 (04:25)
[2022-09-17] MEDS ORDERED: dextrose 50%-water 50ml dispensing syringe IV PRN ×2 (04:25)
[2022-09-17 06:22] LABS: URINE AMPHETAMINE SCREEN POSITIVE (Neg); URINE BARBITUATE SCREEN NEGATIVE (Neg); URINE BENZODIAZEPINES SCREEN NEGATIVE (Neg); URINE CANNABINOID SCREEN NEGATIVE (Neg); URINE COCAINE SCREEN NEGATIVE (Neg); URINE METHADONE SCREEN NEGATIVE (Neg); URINE OPIATE SCREEN NEGATIVE (Neg); URINE PHENCYCLIDINE SCREEN NEGATIVE (Neg)
--- NOTE | 2022-09-17 07:06 | NUR ---
RT AT BEDSIDE FOR MORNING EVAL - PT STATES THE BIPAP IS HELPING HER. SHE IS BECOMING HYPERTENSIVE BUT HAS PO HTN MEDS DUE SOON. WILL CONTINUE TO MONITOR.
--- NOTE | 2022-09-17 07:41 | NUR ---
PAGED MD MARTINEZ WITH THE FOLLOWING MESSAGE: ER BED 4 - [facility] ADMIT NOTE SAYS "SERIAL TROPONINS TO BE TRENDED" BUT NONE WERE ORDERED. WOULD YOU LIKE ME TO ORDER THEM?
[2022-09-17] MEDS: K and/or MAG REPLACEMENT MC SCH ×2 (08:00→20:00)
[2022-09-17] MEDS: docusate sod 100mg capsule PO SCH ×2 (08:00→19:20)
[2022-09-17] MEDS: carVEDilol 12.5mg tablet PO SCH ×2 (08:01→19:20)
[2022-09-17] MEDS: lisinopril 20mg tablet PO SCH (08:01)
[2022-09-17 08:02] LABS: MAGNESIUM 1.9 MG/DL (1.5-2.4); POTASSIUM 3.9 MMOL/L (3.5-5.1)
[2022-09-17] MEDS: methylPREDNISolone sod succ/PF 40mg inj. IV SCH ×3 (08:04→23:20)
[2022-09-17] MEDS: furosemide 40mg/4ml inj IV SCH ×3 (08:04→23:20)
[2022-09-17] MEDS: heparin, porcine 5000 units/ml vial SQ SCH ×2 (08:04→19:21)
[2022-09-17] MEDS ORDERED: hydrALAZINE 20mg/ml inj. IV ONE (08:25)
[2022-09-17 09:00] VITALS: BP 126/74
--- NOTE | 2022-09-17 10:55 | NUR ---
Page Accepted promotional table spacer Message: RE: Ana Kurtz room 3022 Pt is very anxious and has been yelling out. She wants to be knocked out. Feels like she is hyperventilating. per pt. Would you like to order any meds to help calm her? please José Miguel AGUILAR [phone]
[2022-09-17] MEDS ORDERED: CALC-1215 PO (11:13)
[2022-09-17] MEDS ORDERED: LISI20TA28 PO (11:13)
[2022-09-17] MEDS ORDERED: ESCI20TA39 PO (11:13)
[2022-09-17] MEDS ORDERED: BUDE10.26 PO (11:13)
[2022-09-17] MEDS ORDERED: ACET-75 PO (11:13)
[2022-09-17] MEDS ORDERED: ATOR40TA72 PO (11:13)
[2022-09-17] MEDS ORDERED: METF-1203 PO (11:13)
[2022-09-17 11:19] VITALS: BP 147/76
--- NOTE | 2022-09-17 11:48 | NUR ---
DM consult: Per EMR pt with T2DM, well controlled with current A1c 6.8% and A1c hx ranging 6.0-6.5% 03/04/18-04/12/19 per EMR. DM education not warranted at this time. Will continue to follow. Addendum: 09/17/22 at [address] Amended: Links added.
[2022-09-17] MEDS: LORazepam 2 mg/ml vial IV PRN (13:26)
[2022-09-17 16:11] VITALS: BP 140/72
[2022-09-17 18:00] VITALS: BP 144/73
[2022-09-17] MEDS: albuterol 2.5 MG/3 ML nebule NEB PRN (19:30)
[2022-09-17] MEDS: insulin Lispro (HumaLOG) vial - multi-dose SQ SCH (19:40)
--- NOTE | 2022-09-17 21:51 | NUR ---
gram positive cocci in clusters found in anaerobic bottle, Dr. Starkey notified. [facility] to dose order placed.
[2022-09-17 22:00] VITALS: BP 138/72
[2022-09-18 02:00] VITALS: BP 150/68
[2022-09-18 06:00] VITALS: BP 144/77
--- NOTE | 2022-09-18 06:51 | NUR ---
Patient in room PCU 3022. I have received report from Sharon AGUILAR and had the opportunity to ask questions and assume patient care.
[2022-09-18 06:56] LABS: BASOPHILS % (AUTO) 0.2 % (0-1); EOSINOPHILS % (AUTO) 0 % (0-6); HEMOGLOBIN 14.5 g/dl (12.0-16.0); LYMPHOCYTES # (AUTO) 0.4 X10'3 (1.1-4.8); LYMPHOCYTES % (AUTO) 2.6 % (21-51); MEAN PLATELET VOLUME 8.9 FL (7.4-10.4); RED CELL DISTRIBUTION WIDTH 16.1 % (11.5-14.5)
[2022-09-18 06:59] LABS: HEMATOCRIT 43.7 % (35.0-45.0); MEAN CORPUSCULAR HEMOGLOBIN 33.1 PG (27.0-31.0); MEAN CORPUSCULAR HGB CONC 33.3 g/dL (33.0-36.5); MEAN CORPUSCULAR VOLUME 99.3 FL (78-98); MONOCYTES # (AUTO) 0.7 X10'3 (0-0.9); MONOCYTES % (AUTO) 4.8 % (2-12); NEUTROPHILS % (AUTO) 92.4 % (42-75); PLATELET COUNT 166 X10'3 (140-440); WHITE BLOOD COUNT 15.1 X10'3 (4.5-11.0)
[2022-09-18] MEDS: methylPREDNISolone sod succ/PF 40mg inj. IV SCH ×2 (07:54→20:14)
[2022-09-18] MEDS: furosemide 40mg/4ml inj IV SCH ×2 (07:55→20:14)
[2022-09-18] MEDS: K and/or MAG REPLACEMENT MC SCH ×2 (08:00→20:00)
[2022-09-18] MEDS: heparin, porcine 5000 units/ml vial SQ SCH ×2 (08:37→20:14)
[2022-09-18] MEDS: docusate sod 100mg capsule PO SCH ×2 (08:37→20:13)
[2022-09-18] MEDS: carVEDilol 12.5mg tablet PO SCH ×2 (08:37→20:14)
[2022-09-18] MEDS: lisinopril 20mg tablet PO SCH (08:37)
[2022-09-18 10:24] LABS: ALANINE AMINOTRANSFERASE 27 U/L (12-78); ALBUMIN 3.3 G/DL (3.4-5.0); ALBUMIN/GLOBULIN RATIO 0.8 (1.1-1.5); ALKALINE PHOSPHATASE 93 IU/L (46-116); ANION GAP 6 (8-16); ASPARTATE AMINO TRANSFERASE 15 U/L (10-37); BILIRUBIN,TOTAL 0.2 MG/DL (0.1-1.0); BLOOD UREA NITROGEN 53 MG/DL (7-18); BUN/CREATININE RATIO 44.9 (10.0-20.0); CALCIUM 8.1 MG/DL (8.5-10.1); CHLORIDE 100 MMOL/L (99-107); CREATININE 1.18 MG/DL (0.40-0.90); GLUCOSE 218 MG/DL (70-104); MAGNESIUM 2.1 MG/DL (1.5-2.4); POTASSIUM 4.3 MMOL/L (3.5-5.1); SODIUM 138 MMOL/L (135-145); TOTAL CARBON DIOXIDE 32.2 MMOL/L (24-32); TOTAL PROTEIN 7.4 G/DL (6.4-8.2); eGFR 47 ML/MIN
[2022-09-18 11:00] VITALS: BP 132/57
[2022-09-18] MEDS: insulin Lispro (HumaLOG) vial - multi-dose SQ SCH ×3 (11:00→20:08)
[2022-09-18] MEDS: albuterol 2.5 MG/3 ML nebule NEB PRN ×2 (11:29→19:59)
[2022-09-18] MEDS: vancomycin/NS 1 GM ADD-VANTAGE 250 ML IV SCH ×2 (12:09→22:08)
[2022-09-18 15:00] VITALS: BP 127/74
[2022-09-18 18:00] VITALS: BP 132/87
--- NOTE | 2022-09-18 19:12 | NUR ---
Problems reprioritized. Patient report given, questions answered & plan of care reviewed with Sharon AGUILAR.
[2022-09-18 22:00] VITALS: BP 154/74
[2022-09-18] MEDS ORDERED: ipratropium/albuterol 3ml nebule NEB PRN (22:00)
[2022-09-18] MEDS ORDERED: carVEDilol 12.5mg tablet PO SCH (22:15)
[2022-09-18] MEDS: azithromycin 250mg tablet PO SCH (22:27)
[2022-09-18] MEDS: ipratropium/albuterol 3ml nebule NEB SCH (23:27)
[2022-09-18] MEDS: CefTRIAXone/D5W-Rocephin 1gm 50 ML IV SCH ×2 (23:45→23:50)
[2022-09-19] MEDS: methylPREDNISolone sod succ/PF 40mg inj. IV SCH ×4 (01:21→20:40)
[2022-09-19 02:00] VITALS: BP 127/68
[2022-09-19] MEDS: ipratropium/albuterol 3ml nebule NEB SCH ×6 (02:43→23:22)
--- NOTE | 2022-09-19 02:53 | NUR ---
at 0226 pt had a 21 run of v tach, i went in to her room and found her asleep. VS: 127/63, hr 68, rr 18 o2 sat 97% on 4L. pt denies any symptoms. Dr. Starkey notified.
[2022-09-19 06:00] VITALS: BP 141/73
--- NOTE | 2022-09-19 06:26 | NUR ---
Patient report given, questions answered & plan of care reviewed with MARY Tariq
--- NOTE | 2022-09-19 06:31 | NUR ---
Patient in room PCU 3022. I have received report from Sharon AGUILAR and had the opportunity to ask questions and assume patient care.
[2022-09-19] MEDS: docusate sod 100mg capsule PO SCH ×2 (07:57→20:39)
[2022-09-19] MEDS: azithromycin 250mg tablet PO SCH (07:57)
[2022-09-19] MEDS: atorvastatin 20mg tablet PO SCH (07:57)
[2022-09-19] MEDS: ESCITALOPRAM OXALATE 5 MG TABLET PO SCH (07:58)
[2022-09-19] MEDS: loratadine 10mg tablet PO SCH (07:58)
[2022-09-19] MEDS: heparin, porcine 5000 units/ml vial SQ SCH ×2 (08:00→20:41)
[2022-09-19] MEDS: K and/or MAG REPLACEMENT MC SCH ×2 (08:00→20:00)
[2022-09-19] MEDS: lisinopril 20mg tablet PO SCH ×2 (08:00→09:08)
[2022-09-19] MEDS: furosemide 40mg/4ml inj IV SCH ×2 (08:12→20:40)
[2022-09-19] MEDS: CefTRIAXone/D5W-Rocephin 1gm 50 ML IV SCH (08:12)
[2022-09-19] MEDS: carVEDilol 12.5mg tablet PO SCH ×2 (09:08→20:39)
[2022-09-19] MEDS ORDERED: VANCOMYCIN LEVEL IV ONE (09:30)
[2022-09-19 09:42] LABS: BASOPHILS # (AUTO) 0.1 X10'3 (0-0.2); BASOPHILS % (AUTO) 0.5 % (0-1); EOSINOPHILS % (AUTO) 0 % (0-6); HEMOGLOBIN 14.4 g/dl (12.0-16.0); LYMPHOCYTES # (AUTO) 0.5 X10'3 (1.1-4.8); LYMPHOCYTES % (AUTO) 3.4 % (21-51); MEAN PLATELET VOLUME 8.4 FL (7.4-10.4); MONOCYTES # (AUTO) 0.3 X10'3 (0-0.9); NEUTROPHILS # (AUTO) 13.5 X10'3 (1.8-7.7); NEUTROPHILS % (AUTO) 94.1 % (42-75); PLATELET COUNT 178 X10'3 (140-440); RED CELL DISTRIBUTION WIDTH 15.9 % (11.5-14.5); WHITE BLOOD COUNT 14.3 X10'3 (4.5-11.0)
[2022-09-19 10:02] LABS: ALANINE AMINOTRANSFERASE 26 U/L (12-78); ALBUMIN 3.1 G/DL (3.4-5.0); ALBUMIN/GLOBULIN RATIO 0.8 (1.1-1.5); ALKALINE PHOSPHATASE 84 IU/L (46-116); ANION GAP 6 (8-16); ASPARTATE AMINO TRANSFERASE 15 U/L (10-37); BILIRUBIN,TOTAL 0.1 MG/DL (0.1-1.0); BLOOD UREA NITROGEN 45 MG/DL (7-18); BUN/CREATININE RATIO 36.3 (10.0-20.0); CALCIUM 7.7 MG/DL (8.5-10.1); CHLORIDE 98 MMOL/L (99-107); CREATININE 1.24 MG/DL (0.40-0.90); GLUCOSE 363 MG/DL (70-104); POTASSIUM 4.7 MMOL/L (3.5-5.1); SODIUM 140 MMOL/L (135-145); TOTAL CARBON DIOXIDE 36.3 MMOL/L (24-32); TOTAL PROTEIN 7.2 G/DL (6.4-8.2); VANCOMYCIN,TROUGH 19.7 UG/ML (6.0-14.0); eGFR 45 ML/MIN
[2022-09-19] MEDS: vancomycin/NS 1 GM ADD-VANTAGE 250 ML IV SCH ×2 (10:15→21:30)
[2022-09-19] MEDS: insulin Lispro (HumaLOG) vial - multi-dose SQ SCH ×2 (10:52→13:04)
[2022-09-19 11:00] VITALS: BP 100/49
[2022-09-19 15:00] VITALS: BP 156/66
[2022-09-19] MEDS ORDERED: lisinopril 20mg tablet PO ONE (16:50)
[2022-09-19 18:00] VITALS: BP 161/70
--- NOTE | 2022-09-19 18:25 | NUR ---
Problems reprioritized. Patient report given, questions answered & plan of care reviewed with Sharon AGUILAR.
[2022-09-19 22:00] VITALS: BP 150/77
[2022-09-20 02:00] VITALS: BP 190/81
[2022-09-20] MEDS: methylPREDNISolone sod succ/PF 40mg inj. IV SCH ×4 (02:00→19:34)
[2022-09-20] MEDS: hydrALAZINE 20mg/ml inj. IV PRN ×2 (02:15→22:26)
[2022-09-20 03:00] VITALS: BP 170/90
[2022-09-20] MEDS: ipratropium/albuterol 3ml nebule NEB SCH ×6 (03:21→23:21)
--- NOTE | 2022-09-20 03:24 | NUR ---
Pt has during episodes of shortness of breath or O2 sat drops below 90%, patient has been placed on the bipap machine from the 4L NC. She tolerates being on the bipap for only about 15 minutes at a time due to claustrophobia and has been placed back on 4L nc.
[2022-09-20] MEDS: LORazepam 2 mg/ml vial IV PRN ×3 (03:31→19:59)
--- NOTE | 2022-09-20 06:30 | NUR ---
Patient in room PCU 3022. I have received report from Sharon AGUILAR and had the opportunity to ask questions and assume patient care.
[2022-09-20 06:54] LABS: BASOPHILS % (AUTO) 0.2 % (0-1); EOSINOPHILS % (AUTO) 0 % (0-6); HEMATOCRIT 41.5 % (35.0-45.0); HEMOGLOBIN 13.5 g/dl (12.0-16.0); LYMPHOCYTES # (AUTO) 0.4 X10'3 (1.1-4.8); LYMPHOCYTES % (AUTO) 3.1 % (21-51); MEAN CORPUSCULAR HEMOGLOBIN 32.2 PG (27.0-31.0); MEAN CORPUSCULAR HGB CONC 32.6 g/dL (33.0-36.5); MEAN CORPUSCULAR VOLUME 98.9 FL (78-98); MEAN PLATELET VOLUME 8.8 FL (7.4-10.4); MONOCYTES # (AUTO) 0.4 X10'3 (0-0.9); MONOCYTES % (AUTO) 3.4 % (2-12); NEUTROPHILS % (AUTO) 93.3 % (42-75); PLATELET COUNT 163 X10'3 (140-440); RED CELL DISTRIBUTION WIDTH 15.6 % (11.5-14.5); WHITE BLOOD COUNT 12.9 X10'3 (4.5-11.0)
[2022-09-20 07:16] LABS: ALANINE AMINOTRANSFERASE 24 U/L (12-78); ALBUMIN 3.1 G/DL (3.4-5.0); ALBUMIN/GLOBULIN RATIO 0.9 (1.1-1.5); ANION GAP 3 (8-16); ASPARTATE AMINO TRANSFERASE 14 U/L (10-37); BILIRUBIN,TOTAL 0.2 MG/DL (0.1-1.0); BLOOD UREA NITROGEN 42 MG/DL (7-18); BUN/CREATININE RATIO 51.2 (10.0-20.0); CALCIUM 8.3 MG/DL (8.5-10.1); CHLORIDE 100 MMOL/L (99-107); CREATININE 0.82 MG/DL (0.40-0.90); GLUCOSE 175 MG/DL (70-104); MAGNESIUM 2.2 MG/DL (1.5-2.4); POTASSIUM 4.4 MMOL/L (3.5-5.1); SODIUM 140 MMOL/L (135-145); TOTAL CARBON DIOXIDE 36.7 MMOL/L (24-32); TOTAL PROTEIN 6.7 G/DL (6.4-8.2); eGFR 72 ML/MIN
[2022-09-20] MEDS: CefTRIAXone/D5W-Rocephin 1gm 50 ML IV SCH (07:40)
[2022-09-20] MEDS: furosemide 40mg/4ml inj IV SCH ×2 (07:40→19:33)
[2022-09-20] MEDS: K and/or MAG REPLACEMENT MC SCH ×2 (08:00→20:00)
[2022-09-20] MEDS: azithromycin 250mg tablet PO SCH (08:38)
[2022-09-20] MEDS: atorvastatin 20mg tablet PO SCH (08:38)
[2022-09-20] MEDS: ESCITALOPRAM OXALATE 5 MG TABLET PO SCH (08:39)
[2022-09-20] MEDS: carVEDilol 12.5mg tablet PO SCH ×2 (08:39→19:33)
[2022-09-20] MEDS: lisinopril 20mg tablet PO SCH (08:40)
[2022-09-20] MEDS: loratadine 10mg tablet PO SCH (08:40)
[2022-09-20] MEDS: docusate sod 100mg capsule PO SCH ×2 (08:40→19:33)
[2022-09-20] MEDS: heparin, porcine 5000 units/ml vial SQ SCH ×2 (08:43→19:33)
[2022-09-20 09:37] LABS: ALKALINE PHOSPHATASE 74 IU/L (46-116)
[2022-09-20] MEDS: insulin Lispro (HumaLOG) vial - multi-dose SQ SCH ×3 (10:04→19:41)
[2022-09-20] MEDS: vancomycin/NS 1 GM ADD-VANTAGE 250 ML IV SCH (10:12)
[2022-09-20 18:00] VITALS: BP 158/70
--- NOTE | 2022-09-20 18:32 | NUR ---
Patient in room PCU 3022. I have received report from ROD JUAREZ and had the opportunity to ask questions and assume patient care.
[2022-09-20 22:00] VITALS: BP 162/83
[2022-09-21 02:00] VITALS: BP 160/78
[2022-09-21] MEDS: ipratropium/albuterol 3ml nebule NEB SCH ×6 (03:00→23:12)
[2022-09-21] MEDS: methylPREDNISolone sod succ/PF 40mg inj. IV SCH ×4 (03:07→21:49)
--- NOTE | 2022-09-21 06:25 | NUR ---
Problems reprioritized. Patient report given, questions answered & plan of care reviewed with NATALIE RN.
--- NOTE | 2022-09-21 06:26 | NUR ---
Patient in room PCU 3022. I have received report from Tiara AGUILAR and had the opportunity to ask questions and assume patient care.
[2022-09-21 07:11] LABS: HEMOGLOBIN 14.1 g/dl (12.0-16.0); LYMPHOCYTES # (AUTO) 0.5 X10'3 (1.1-4.8); MONOCYTES # (AUTO) 0.6 X10'3 (0-0.9); NEUTROPHILS # (AUTO) 10.8 X10'3 (1.8-7.7); RED BLOOD COUNT 4.35 X10'6 (4.20-5.60)
[2022-09-21 07:14] LABS: BASOPHILS % (AUTO) 0.1 % (0-1); EOSINOPHILS % (AUTO) 0 % (0-6); HEMATOCRIT 42.8 % (35.0-45.0); LYMPHOCYTES % (AUTO) 4.5 % (21-51); MEAN CORPUSCULAR HEMOGLOBIN 32.5 PG (27.0-31.0); MEAN CORPUSCULAR VOLUME 98.4 FL (78-98); NEUTROPHILS % (AUTO) 90.4 % (42-75); PLATELET COUNT 151 X10'3 (140-440); RED CELL DISTRIBUTION WIDTH 15.6 % (11.5-14.5)
[2022-09-21 07:39] LABS: ALANINE AMINOTRANSFERASE 15 U/L (12-78); ALBUMIN 3.1 G/DL (3.4-5.0); ALBUMIN/GLOBULIN RATIO 0.9 (1.1-1.5); ALKALINE PHOSPHATASE 71 IU/L (46-116); ANION GAP 9 (8-16); ASPARTATE AMINO TRANSFERASE 19 U/L (10-37); BILIRUBIN,TOTAL 0.3 MG/DL (0.1-1.0); BLOOD UREA NITROGEN 45 MG/DL (7-18); BUN/CREATININE RATIO 54.2 (10.0-20.0); CALCIUM 8.4 MG/DL (8.5-10.1); CHLORIDE 102 MMOL/L (99-107); CREATININE 0.83 MG/DL (0.40-0.90); GLUCOSE 166 MG/DL (70-104); MAGNESIUM 2.8 MG/DL (1.5-2.4); SODIUM 145 MMOL/L (135-145); TOTAL CARBON DIOXIDE 34.2 MMOL/L (24-32); TOTAL PROTEIN 6.7 G/DL (6.4-8.2); eGFR 71 ML/MIN
[2022-09-21 07:50] LABS: POTASSIUM 4.6 MMOL/L (3.5-5.1)
[2022-09-21] MEDS: furosemide 40mg/4ml inj IV SCH ×2 (07:59→21:47)
[2022-09-21] MEDS: carVEDilol 12.5mg tablet PO SCH ×2 (07:59→21:47)
[2022-09-21] MEDS: lisinopril 20mg tablet PO SCH (08:00)
[2022-09-21] MEDS: atorvastatin 20mg tablet PO SCH (08:00)
[2022-09-21] MEDS: K and/or MAG REPLACEMENT MC SCH ×2 (08:00→20:00)
[2022-09-21] MEDS: loratadine 10mg tablet PO SCH (08:01)
[2022-09-21] MEDS: azithromycin 250mg tablet PO SCH (08:01)
[2022-09-21] MEDS: ESCITALOPRAM OXALATE 5 MG TABLET PO SCH (08:03)
[2022-09-21] MEDS: CefTRIAXone/D5W-Rocephin 1gm 50 ML IV SCH (08:03)
[2022-09-21] MEDS: docusate sod 100mg capsule PO SCH ×2 (08:03→21:46)
[2022-09-21] MEDS: heparin, porcine 5000 units/ml vial SQ SCH ×2 (08:03→21:48)
[2022-09-21 08:06] VITALS: BP 153/87
[2022-09-21 08:42] LABS: ANISOCYTOSIS 1+; PLATELET ESTIMATE NORMAL; TOTAL CELLS COUNTED 100
[2022-09-21] MEDS: insulin Lispro (HumaLOG) vial - multi-dose SQ SCH ×2 (10:21→14:31)
[2022-09-21] MEDS: LORazepam 2 mg/ml vial IV PRN ×2 (10:27→14:31)
[2022-09-21 12:53] VITALS: BP 130/78
[2022-09-21 17:26] VITALS: BP 163/98
[2022-09-21 18:00] VITALS: BP 134/84
--- NOTE | 2022-09-21 18:35 | NUR ---
Problems reprioritized. Patient report given TO JOHANNA AGUILAR, questions answered & plan of care reviewed with .
--- NOTE | 2022-09-21 18:35 | NUR ---
[place] documentation: I have reviewed all interventions, assessments performed and documented by Claudy AGUILAR.
--- NOTE | 2022-09-21 18:37 | NUR ---
[place] Medication Administration: For this medication-pass time frame, all medication were reviewed, dispensed, administered and documented per hospital policy by Darrick AGUILAR.
--- NOTE | 2022-09-21 19:12 | NUR ---
Problems reprioritized. Patient report given to Oliva AGUILAR, questions answered & plan of care reviewed with .
[2022-09-21 22:00] VITALS: BP 168/85
[2022-09-22] MEDS: LORazepam 2 mg/ml vial IV PRN ×3 (01:39→16:39)
[2022-09-22 02:00] VITALS: BP 190/94
[2022-09-22] MEDS: hydrALAZINE 20mg/ml inj. IV PRN (02:27)
[2022-09-22] MEDS: ipratropium/albuterol 3ml nebule NEB SCH ×6 (03:00→23:50)
[2022-09-22 03:45] VITALS: BP 174/83
--- NOTE | 2022-09-22 04:46 | NUR ---
Pt had episode of HTN with BP of 190/94 at 0200, pt was asymptomatic other than a headache,gave PRN dose of IV hydralazine 10mg, rechecked BP which was 174/83.
[2022-09-22 06:27] LABS: BASOPHILS % (AUTO) 0.1 % (0-1); EOSINOPHILS % (AUTO) 0 % (0-6); HEMATOCRIT 43.5 % (35.0-45.0); HEMOGLOBIN 14.4 g/dl (12.0-16.0); LYMPHOCYTES # (AUTO) 0.6 X10'3 (1.1-4.8); LYMPHOCYTES % (AUTO) 4.7 % (21-51); MEAN CORPUSCULAR HEMOGLOBIN 32.6 PG (27.0-31.0); MEAN CORPUSCULAR VOLUME 98.9 FL (78-98); MEAN PLATELET VOLUME 8.8 FL (7.4-10.4); MONOCYTES # (AUTO) 0.9 X10'3 (0-0.9); MONOCYTES % (AUTO) 7.5 % (2-12); NEUTROPHILS # (AUTO) 10.8 X10'3 (1.8-7.7); NEUTROPHILS % (AUTO) 87.7 % (42-75); PLATELET COUNT 184 X10'3 (140-440); RED CELL DISTRIBUTION WIDTH 15.2 % (11.5-14.5); WHITE BLOOD COUNT 12.3 X10'3 (4.5-11.0)
--- NOTE | 2022-09-22 06:35 | NUR ---
Problems reprioritized. Patient report given, questions answered & plan of care reviewed with Kenroy RN and Darrick RN. Pt stable atshift change.
--- NOTE | 2022-09-22 06:39 | NUR ---
Patient in room PCU 3022. I have received report from Oliva AGUILAR and had the opportunity to ask questions and assume patient care.
--- NOTE | 2022-09-22 06:42 | NUR ---
Patient in room PCU 3022. I have received report from Oliva AGUILAR and had the opportunity to ask questions and assume patient care.
[2022-09-22 07:06] LABS: ALANINE AMINOTRANSFERASE 27 U/L (12-78); ALBUMIN 3.2 G/DL (3.4-5.0); ALKALINE PHOSPHATASE 72 IU/L (46-116); ANION GAP 5 (8-16); ASPARTATE AMINO TRANSFERASE 12 U/L (10-37); BILIRUBIN,TOTAL 0.3 MG/DL (0.1-1.0); BLOOD UREA NITROGEN 42 MG/DL (7-18); BUN/CREATININE RATIO 48.8 (10.0-20.0); CALCIUM 8.5 MG/DL (8.5-10.1); CHLORIDE 99 MMOL/L (99-107); CREATININE 0.86 MG/DL (0.40-0.90); GLUCOSE 158 MG/DL (70-104); POTASSIUM 4.2 MMOL/L (3.5-5.1); SODIUM 143 MMOL/L (135-145); TOTAL CARBON DIOXIDE 38.6 MMOL/L (24-32); TOTAL PROTEIN 6.5 G/DL (6.4-8.2); eGFR 68 ML/MIN
[2022-09-22 07:09] VITALS: BP 183/84
[2022-09-22] MEDS: furosemide 40mg/4ml inj IV SCH ×2 (07:51→19:32)
[2022-09-22] MEDS: methylPREDNISolone sod succ/PF 40mg inj. IV SCH ×2 (07:51→19:32)
[2022-09-22] MEDS: carVEDilol 12.5mg tablet PO SCH ×2 (07:52→19:31)
[2022-09-22] MEDS: azithromycin 250mg tablet PO SCH (07:52)
[2022-09-22] MEDS: heparin, porcine 5000 units/ml vial SQ SCH ×2 (07:52→19:31)
[2022-09-22] MEDS: ESCITALOPRAM OXALATE 5 MG TABLET PO SCH (07:52)
[2022-09-22] MEDS: atorvastatin 20mg tablet PO SCH (07:53)
[2022-09-22] MEDS: docusate sod 100mg capsule PO SCH ×2 (07:53→19:30)
[2022-09-22] MEDS: CefTRIAXone/D5W-Rocephin 1gm 50 ML IV SCH (07:53)
[2022-09-22] MEDS: lisinopril 20mg tablet PO SCH (07:53)
[2022-09-22] MEDS: loratadine 10mg tablet PO SCH (07:53)
[2022-09-22] MEDS: K and/or MAG REPLACEMENT MC SCH ×2 (08:00→19:54)
[2022-09-22] MEDS: insulin Lispro (HumaLOG) vial - multi-dose SQ SCH ×3 (10:24→19:54)
[2022-09-22 11:15] VITALS: BP 145/60
--- NOTE | 2022-09-22 13:42 | NUR ---
PT. BLOOD SUGAR WAS 216 AT 1714H AND AT LEVEL 6, HELD OFF AND PUT AT LEVEL 5 DUE TO POSSIBLE RISK OF HYPOGLYCEMIA. PT.S LARGEST DOSE WAS 25UNITS OF HUMALOG ON THE DELIVERY HISTORY, AND LEVEL 6 WANTED 30 UNITS AND LEVEL 5 23UNITS.
--- NOTE | 2022-09-22 14:27 | NUR ---
Message: TOMMY AGUILAR TELE, [phone], RM# [id number]. DIETARY RECCOMENDED ENSURE HIGH PROTEIN SHAKES 3X DAY. DO YOU WANT TO ADD TO THE ORDER. THANKS
--- NOTE | 2022-09-22 14:29 | NUR ---
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 Hx T2DM A1c 6.8% and A1c hx ranging 6.0-6.5% 03/04/18-04/12/19 per EMR. PO fluctuates ~60% avg initial carb controlled meals up to ~78% avg past [address] meeting needs[address] RD d/w RN recommends Ensure High Protein TIDWM if MD agreeable to assist meeting needs. LBM 09/21 per EMR. Will continue to follow. Rec: 1. IF PO persists liberalize from carb restriction to heart healthy diet to better meet estimated needs 2. Ensure High Protein TIDWM to assist meeting needs if MD agreeable; pending physician orders in EMR 3. routine bowel care 4. scaled wt this admit; subsequent weekly wt Addendum: 09/22/22 at [address] Amended: Links added.
--- NOTE | 2022-09-22 17:00 | NUR ---
PT. WAS EDUCATED ON THE USE OF THE INCENTIVE SPIROMETER, AND THE Q15MIN USE. Addendum: 09/22/22 at 1703 by Claudy Wright RN THIS NOTE IS FOR WRONG PATIENT.
--- NOTE | 2022-09-22 17:20 | NUR ---
[place] Medication Administration: For this medication-pass time frame, all medication were reviewed, dispensed, administered and documented per hospital policy by Darrick AGUILAR.
--- NOTE | 2022-09-22 17:20 | NUR ---
[place] documentation: I have reviewed all interventions, assessments performed and documented by Claudy AGUILAR.
[2022-09-22 18:00] VITALS: BP 175/94
--- NOTE | 2022-09-22 18:30 | NUR ---
Patient in room PCU 3022. I have received report from LAUREN Hollingsworth and had the opportunity to ask questions and assume patient care.
--- NOTE | 2022-09-22 18:35 | NUR ---
Problems reprioritized. Patient report given TO COLE AGUILAR, questions answered & plan of care reviewed with .
[2022-09-22 22:00] VITALS: BP 145/78
[2022-09-23] MEDS: LORazepam 2 mg/ml vial IV PRN (01:32)
[2022-09-23 02:00] VITALS: BP 182/92
[2022-09-23] MEDS: hydrALAZINE 20mg/ml inj. IV PRN (02:24)
[2022-09-23] MEDS: ipratropium/albuterol 3ml nebule NEB SCH ×4 (03:12→15:37)
[2022-09-23 06:00] VITALS: BP 182/92
--- NOTE | 2022-09-23 06:27 | NUR ---
Problems reprioritized. Patient report given, questions answered & plan of care reviewed with LAUREN Calloway.
[2022-09-23] MEDS: heparin, porcine 5000 units/ml vial SQ SCH (07:16)
[2022-09-23] MEDS: methylPREDNISolone sod succ/PF 40mg inj. IV SCH (07:16)
[2022-09-23] MEDS: furosemide 40mg/4ml inj IV SCH (07:16)
[2022-09-23] MEDS: lisinopril 20mg tablet PO SCH (07:17)
[2022-09-23] MEDS: docusate sod 100mg capsule PO SCH (07:17)
[2022-09-23] MEDS: loratadine 10mg tablet PO SCH (07:17)
[2022-09-23] MEDS: ESCITALOPRAM OXALATE 5 MG TABLET PO SCH (07:17)
[2022-09-23] MEDS: atorvastatin 20mg tablet PO SCH (07:17)
[2022-09-23] MEDS: azithromycin 250mg tablet PO SCH (07:17)
[2022-09-23] MEDS: CefTRIAXone/D5W-Rocephin 1gm 50 ML IV SCH (07:18)
[2022-09-23] MEDS: carVEDilol 12.5mg tablet PO SCH (07:18)
[2022-09-23 07:23] LABS: BASOPHILS % (AUTO) 0.1 % (0-1); EOSINOPHILS % (AUTO) 0.1 % (0-6); HEMATOCRIT 45.4 % (35.0-45.0); HEMOGLOBIN 14.6 g/dl (12.0-16.0); LYMPHOCYTES # (AUTO) 0.9 X10'3 (1.1-4.8); LYMPHOCYTES % (AUTO) 6.7 % (21-51); MEAN CORPUSCULAR HEMOGLOBIN 31.9 PG (27.0-31.0); MEAN CORPUSCULAR HGB CONC 32.1 g/dL (33.0-36.5); MEAN CORPUSCULAR VOLUME 99.2 FL (78-98); MEAN PLATELET VOLUME 8.7 FL (7.4-10.4); MONOCYTES # (AUTO) 0.9 X10'3 (0-0.9); MONOCYTES % (AUTO) 7.3 % (2-12); NEUTROPHILS % (AUTO) 85.8 % (42-75); PLATELET COUNT 194 X10'3 (140-440); RED BLOOD COUNT 4.57 X10'6 (4.20-5.60); RED CELL DISTRIBUTION WIDTH 15.4 % (11.5-14.5); WHITE BLOOD COUNT 12.8 X10'3 (4.5-11.0)
[2022-09-23] MEDS: K and/or MAG REPLACEMENT MC SCH (08:00)
[2022-09-23 08:01] LABS: ALANINE AMINOTRANSFERASE 28 U/L (12-78); ALBUMIN/GLOBULIN RATIO 0.9 (1.1-1.5); ALKALINE PHOSPHATASE 65 IU/L (46-116); ANION GAP 4 (8-16); ASPARTATE AMINO TRANSFERASE 18 U/L (10-37); BILIRUBIN,TOTAL 0.3 MG/DL (0.1-1.0); BLOOD UREA NITROGEN 41 MG/DL (7-18); BUN/CREATININE RATIO 46.6 (10.0-20.0); CALCIUM 8.9 MG/DL (8.5-10.1); CHLORIDE 100 MMOL/L (99-107); CREATININE 0.88 MG/DL (0.40-0.90); GLUCOSE 93 MG/DL (70-104); MAGNESIUM 2.4 MG/DL (1.5-2.4); PHOSPHORUS 3.4 MG/DL (2.3-4.5); POTASSIUM 4.6 MMOL/L (3.5-5.1); SODIUM 141 MMOL/L (135-145); TOTAL CARBON DIOXIDE 36.8 MMOL/L (24-32); TOTAL PROTEIN 6.3 G/DL (6.4-8.2); eGFR 66 ML/MIN
[2022-09-23 11:00] VITALS: BP 117/58
[2022-09-23] MEDS: insulin Lispro (HumaLOG) vial - multi-dose SQ SCH (13:19)
[2022-09-23 15:00] VITALS: BP 146/69
[2022-09-23] MEDS ORDERED: CEFD300C3 PO (16:32)
[2022-09-23] MEDS ORDERED: LACT1CAP74 PO (16:32)
[2022-09-23] MEDS ORDERED: PRED10TA23 PO (16:32)
--- NOTE | 2022-09-23 17:15 | NUR ---
Discharge instructions discussed with patient. pt states she understands. all questions answered. pt will leave hospital via cab. iv is dc'd along with telemetry.
== END 2022-09-23 18:25 | disposition home or self-care (01) | DRG 812 ==
LOC: ER 03:07 → ED HOLD 04:21 → PCU 3S 08:46
PROVIDERS: ADMIT Internal Medicine; ATTEND Family Medicine
PROC: 5A09357 Assistance with Respiratory Ventilation, Less than 24 Consecutive Hours, Continuous Positive Airway Pressure (ICD-10-PCS; principal; 2022-09-17)
PROC: 5A09357 Assistance with Respiratory Ventilation, Less than 24 Consecutive Hours, Continuous Positive Airway Pressure (ICD-10-PCS; 2022-09-18)
PROC: 5A09357 Assistance with Respiratory Ventilation, Less than 24 Consecutive Hours, Continuous Positive Airway Pressure (ICD-10-PCS; 2022-09-20)
DX: T43.651A Poisoning by methamphetamines accidental (unintentional), initial encounter (principal); J96.00 Acute respiratory failure, unspecified whether with hypoxia or hypercapnia; I11.0 Hypertensive heart disease with heart failure; I50.9 Heart failure, unspecified; J44.1 Chronic obstructive pulmonary disease with (acute) exacerbation; Z60.2 Problems related to living alone; E11.9 Type 2 diabetes mellitus without complications; F15.20 Other stimulant dependence, uncomplicated; F17.200 Nicotine dependence, unspecified, uncomplicated; Z80.1 Family history of malignant neoplasm of trachea, bronchus and lung; Z80.49 Family history of malignant neoplasm of other genital organs; Z59.00 Homelessness unspecified; Z79.899 Other long term (current) drug therapy; Y92.89 Other specified places as the place of occurrence of the external cause; Z71.51 Drug abuse counseling and surveillance of drug abuser; Z71.6 Tobacco abuse counseling
CPT/HCPCS: 36415; 71045; 80053; 80202; 80305; 82948; 83036; 83735; 83880; 84100; 84132; 84484; 85007; 85025; 85610; 87040; 87077; 87081; 87186; 93005; 93306; 94640; 94660; 94760; 99285; A6250; G0378; J0360; J0696; J1644; J1940; J2060; J2920; J2930; J3370; J3490; J7030; J7040

== ENCOUNTER 2023-04-10 14:18 | Emergency (ER) | payer MEDICAID ==
[~2023-04-10] VITALS: Ht 162.6 cm; Wt 83.0 kg
[~2023-04-10 14:18] MED LIST changes: +ACET-75 PO; +ATOR40TA72 PO; +BUDE10.26 PO; +CALC-1215 PO; +ESCI20TA39 PO; -FURO40TA4 PO; -GUAI600T45 PO; -IBUP-1985 PO; +LACT1CAP74 PO; +LISI20TA28 PO; -LISI40TA13 PO; -MECL-226 PO; +METF-1203 PO; -UMEC1DIS PO
[2023-04-10] MEDS ORDERED: ipratropium/albuterol 3ml nebule NEB ONE (15:00)
[2023-04-10 15:06] VITALS: TEMP 99
[2023-04-10 15:15] VITALS: PULSE 70; PULSE 71; RESP 20; RESP 27; O2SAT 96
[2023-04-10] MEDS ORDERED: dexamethasone sod phosphate 10mg/ml inj IM STA (15:41)
[2023-04-10] MEDS ORDERED: PRED20TA PO ×3 (15:45→15:46)
[2023-04-10] MEDS ORDERED: ondansetron/PF 4mg/2ml inj IV ONE (16:25)
[2023-04-10 16:38] LABS: BASOPHILS % (AUTO) 0.3 % (0-1); EOSINOPHILS # (AUTO) 0.1 X10'3 (0-0.9); EOSINOPHILS % (AUTO) 1.1 % (0-6); HEMATOCRIT 39.9 % (35.0-45.0); HEMOGLOBIN 13.3 g/dl (12.0-16.0); LYMPHOCYTES # (AUTO) 0.7 X10'3 (1.1-4.8); LYMPHOCYTES % (AUTO) 7.6 % (21-51); MEAN CORPUSCULAR HEMOGLOBIN 32.2 PG (27.0-31.0); MEAN CORPUSCULAR HGB CONC 33.3 g/dL (33.0-36.5); MEAN CORPUSCULAR VOLUME 96.7 FL (78-98); MEAN PLATELET VOLUME 7.9 FL (7.4-10.4); MONOCYTES # (AUTO) 0.8 X10'3 (0-0.9); MONOCYTES % (AUTO) 8.2 % (2-12); NEUTROPHILS % (AUTO) 82.8 % (42-75); PLATELET COUNT 216 X10'3 (140-440); RED BLOOD COUNT 4.13 X10'6 (4.20-5.60); RED CELL DISTRIBUTION WIDTH 13.9 % (11.5-14.5); WHITE BLOOD COUNT 9.7 X10'3 (4.5-11.0)
[2023-04-10 16:52] LABS: ALANINE AMINOTRANSFERASE 19 U/L (12-78); ALBUMIN 3.4 G/DL (3.4-5.0); ALBUMIN/GLOBULIN RATIO 0.9 (1.1-1.5); ALKALINE PHOSPHATASE 90 IU/L (46-116); ASPARTATE AMINO TRANSFERASE 14 U/L (10-37); BILIRUBIN,TOTAL 0.2 MG/DL (0.1-1.0); BLOOD UREA NITROGEN 23 MG/DL (7-18); BUN/CREATININE RATIO 21.9 (10.0-20.0); CALCIUM 8.9 MG/DL (8.5-10.1); CHLORIDE 101 MMOL/L (99-107); CREATININE 1.05 MG/DL (0.40-0.90); GLUCOSE 98 MG/DL (70-104); SODIUM 140 MMOL/L (135-145); TOTAL PROTEIN 7.1 G/DL (6.4-8.2); eCRCL 51 ML/MIN; eGFR 54 ML/MIN
[2023-04-10 17:01] LABS: MAGNESIUM 1.9 MG/DL (1.5-2.4); PRO BRAIN NATRIURETIC PEPTIDE 793 PG/ML (0-125)
[2023-04-10 17:18] LABS: ANION GAP 5 (8-16)
[2023-04-10 17:50] VITALS: BP 192/82; PULSE 76; RESP 16; O2SAT 92
== END 2023-04-10 17:56 | disposition home or self-care (01) ==
LOC: ER 14:19
DX: J44.1 Chronic obstructive pulmonary disease with (acute) exacerbation (principal); I11.0 Hypertensive heart disease with heart failure; E11.9 Type 2 diabetes mellitus without complications; F12.10 Cannabis abuse, uncomplicated; F15.10 Other stimulant abuse, uncomplicated; Z79.899 Other long term (current) drug therapy; Z79.1 Long term (current) use of non-steroidal anti-inflammatories (NSAID); Z79.2 Long term (current) use of antibiotics
CPT/HCPCS: 36415; 71045; 80053; 83735; 83880; 85025; 93005; 94640; 96372; 99285; J1100; 94760

== ENCOUNTER 2023-04-20 | Inpatient (IN) | payer MEDICAID ==
[2023-04-20] VITALS (14 sets, daily range): BP systolic 187; BP diastolic 91; PULSE 73–94; RESP 16–24; TEMP 98.2; O2SAT 90–98
[~2023-04-20] VITALS: Ht 162.6 cm; Wt 88.0 kg
[~2023-04-20] MED LIST changes: +PRED20TA PO
[2023-04-20] MEDS ORDERED: albuterol 2.5 MG/3 ML nebule CONTNEB PRN (00:05)
[2023-04-20] MEDS ORDERED: magnesium 2GM in 50ml NS 50 ML IV ONE (00:05)
[2023-04-20] MEDS ORDERED: methylPREDNISolone sod succ 125mg/2ml vial IV ONE (00:05)
[2023-04-20 01:16] LABS: ABG BASE EXCESS 9.2 mmol/L (-2.0-2.0); ABG HCO3 36.1 mmol/L (22.0-26.0); ABG OXYGEN SATURATION 90.4 % (94-97); ABG PCO2 (T) 59.4 mmHg (32.0-45.0); ABG PH (T) 7.402 (7.350-7.450); ABG PO2 (T) 57.9 mmHg (75.0-100.0); ALLEN'S TEST POSITIVE; FHHb 9.4 % (0.0-5.0); FMetHb 0.3 % (0.0-1.5); FO2Hb 88.3 % (94-97); MODE ROOM AIR; TOTAL HEMOGLOBIN 13.8 G/dl (12.0-16.0)
[2023-04-20 01:30] LABS: APTT 24 SECONDS (22-32); PROTHROMBIN TIME 9.8 SECONDS (9.0-12.0)
[2023-04-20 01:32] LABS: INR 0.9 INR
[2023-04-20 01:34] LABS: ALANINE AMINOTRANSFERASE 36 U/L (12-78); ALBUMIN 3.4 G/DL (3.4-5.0); ALKALINE PHOSPHATASE 111 IU/L (46-116); ANION GAP 1 (8-16); ASPARTATE AMINO TRANSFERASE 11 U/L (10-37); BILIRUBIN,TOTAL 0.2 MG/DL (0.1-1.0); BLOOD UREA NITROGEN 37 MG/DL (7-18); BUN/CREATININE RATIO 35.2 (10.0-20.0); CHLORIDE 102 MMOL/L (99-107); CREATININE 1.05 MG/DL (0.40-0.90); GLUCOSE 167 MG/DL (70-104); POTASSIUM 4.8 MMOL/L (3.5-5.1); SODIUM 142 MMOL/L (135-145); TOTAL PROTEIN 6.7 G/DL (6.4-8.2); eCRCL 51 ML/MIN; eGFR 54 ML/MIN
[2023-04-20 01:42] LABS: MAGNESIUM 2.3 MG/DL (1.5-2.4); PRO BRAIN NATRIURETIC PEPTIDE 3356 PG/ML (0-125)
[2023-04-20 01:52] LABS: CALCIUM 9.3 MG/DL (8.5-10.1)
[2023-04-20] MEDS ORDERED: furosemide 10 MG/1 ML 10ml inj IV ONE (02:05)
[2023-04-20] MEDS ORDERED: nitroGLYCERIN 1gm ointment UD TP ONE (02:10)
[2023-04-20 02:19] LABS: BASOPHILS % (AUTO) 0.4 % (0-1); EOSINOPHILS # (AUTO) 0.1 X10'3 (0-0.9); EOSINOPHILS % (AUTO) 1.2 % (0-6); HEMATOCRIT 41.1 % (35.0-45.0); HEMOGLOBIN 13.2 g/dl (12.0-16.0); LYMPHOCYTES # (AUTO) 0.8 X10'3 (1.1-4.8); LYMPHOCYTES % (AUTO) 7.4 % (21-51); MEAN CORPUSCULAR HEMOGLOBIN 31.4 PG (27.0-31.0); MEAN CORPUSCULAR HGB CONC 32.1 g/dL (33.0-36.5); MEAN CORPUSCULAR VOLUME 97.9 FL (78-98); MEAN PLATELET VOLUME 8.8 FL (7.4-10.4); MONOCYTES # (AUTO) 0.7 X10'3 (0-0.9); MONOCYTES % (AUTO) 6.7 % (2-12); NEUTROPHILS # (AUTO) 9.4 X10'3 (1.8-7.7); NEUTROPHILS % (AUTO) 84.3 % (42-75); PLATELET COUNT 227 X10'3 (140-440); RED CELL DISTRIBUTION WIDTH 14.2 % (11.5-14.5); WHITE BLOOD COUNT 11.1 X10'3 (4.5-11.0)
[2023-04-20] MEDS ORDERED: isosorbide mononitrate 30mg tab.SR.24H PO ONE (03:00)
[2023-04-20] MEDS ORDERED: ipratropium/albuterol 3ml nebule NEB PRN (03:15)
[2023-04-20] MEDS ORDERED: potassium Cl 20 mEq SR tablet PO PRN ×2 (03:20)
[2023-04-20] MEDS ORDERED: magnesium Cl slow-release 64mg tablet PO PRN (03:20)
[2023-04-20] MEDS ORDERED: magnesium 4gm in 100ml NS 100 ML IV PRN (03:20)
[2023-04-20] MEDS ORDERED: mag hydrox/Alum hydrox/simeth 30ml oral suspension PO PRN (03:20)
[2023-04-20] MEDS ORDERED: acetaminophen 325mg tablet PO PRN (03:20)
[2023-04-20] MEDS ORDERED: magnesium hydroxide 30ml (MOM) UD suspension PO PRN (03:20)
[2023-04-20] MEDS ORDERED: potassium Cl 40MEQ/1/2NS 520ml 520 ML IV PRN (03:20)
[2023-04-20] MEDS ORDERED: magnesium 2GM in 50ml NS 50 ML IV PRN (03:20)
[2023-04-20] MEDS ORDERED: ondansetron/PF 4mg/2ml inj IV PRN (03:20)
[2023-04-20] MEDS ORDERED: MESSAGE TO PHARMACY PO ONE (03:25)
[2023-04-20] MEDS ORDERED: glucagon, human recombinant 1mg kit SUBCUT PRN (03:25)
[2023-04-20] MEDS ORDERED: DEXTROSE 15 GM of carb/4 tabs (each vial/BOTTLE has 4 tablets) PO PRN ×2 (03:25)
[2023-04-20] MEDS ORDERED: dextrose 50%-water 50ml dispensing syringe IV PRN ×2 (03:25)
[2023-04-20] MEDS: CefTRIAXone/D5W-Rocephin 1gm 50 ML IV SCH ×2 (03:32→08:35)
[2023-04-20] MEDS ORDERED: PERFLUTREN PROTEIN-A MICROSPHR (Optison) 0.22 MG/ML 3ML VIAL IV ONE (03:50)
[2023-04-20] MEDS ORDERED: nicotine 14mg patch - 24hr TD ONE (04:00)
[2023-04-20] MEDS: azithromycin/NS 500mg/250ml 250 ML IV SCH ×2 (04:01→09:14)
[2023-04-20] MEDS: ipratropium/albuterol 3ml nebule NEB SCH ×6 (04:25→23:37)
[2023-04-20] MEDS: lisinopril 20mg tablet PO SCH ×2 (04:53→08:33)
[2023-04-20 05:07] LABS: BILIRUBIN,URINE NEGATIVE (Neg); CLARITY,URINE CLEAR (Clear); COLOR,URINE STRAW (Yellow); GLUCOSE, URINE NEGATIVE (Neg); KETONES,URINE NEGATIVE (Neg); LEUKOCYTE ESTERASE ,URINE NEGATIVE (Neg); NITRITES, URINE NEGATIVE (Neg); OCCULT BLOOD,URINE NEGATIVE (Neg); PH,URINE 6.5 (4.8-8.0); PROTEIN,URINE NEGATIVE (Neg); UROBILINOGEN,URINE 0.2 E.U/dL (0.2-1.0)
[2023-04-20 05:24] LABS: UA COLLECTION TYPE CLN CATCH MIDSTREAM
[2023-04-20] MEDS ORDERED: methylPREDNISolone sod succ 125mg/2ml vial IV SCH (08:00)
[2023-04-20] MEDS: K and/or MAG REPLACEMENT MC SCH ×2 (08:00→20:00)
[2023-04-20] MEDS: docusate sod 100mg capsule PO SCH ×3 (08:00→20:00)
[2023-04-20] MEDS: atorvastatin 20mg tablet PO SCH (08:31)
[2023-04-20] MEDS: carVEDilol 12.5mg tablet PO SCH ×2 (08:32→21:47)
[2023-04-20] MEDS: ESCITALOPRAM 10 mg tablet 10 MG TABLET PO SCH (08:33)
[2023-04-20] MEDS: furosemide 10 MG/1 ML 10ml inj IV SCH ×2 (08:35→20:40)
[2023-04-20 09:40] LABS: HEMOGLOBIN A1C 7.1 % (4.5-6.2)
[2023-04-20 10:11] LABS: CHOL/HDL RATIO 2.7 (0.00-4.99); CHOLESTEROL 179 MG/DL (0-200); HDL CHOLESTEROL 66 MG/DL (35-60); LDL CHOLESTEROL 79 MG/DL (50-100); POTASSIUM 4.6 MMOL/L (3.5-5.1); TRIGLYCERIDES 96 MG/DL (20-135)
[2023-04-20] MEDS ORDERED: LACT1CAP26 PO (10:13)
[2023-04-20] MEDS ORDERED: LORazepam 1 MG tablet PO ONE (17:45)
[2023-04-20] MEDS: methylPREDNISolone sod succ 125mg/2ml vial IV SCH (20:42)
[2023-04-20] MEDS: insulin Lispro (HumaLOG) vial - multi-dose SQ SCH (22:17)
[2023-04-20] MEDS: insulin glargine (Lantus) pen - multi-dose SQ SCH (22:19)
[2023-04-21] VITALS (15 sets, daily range): BP systolic 143–187; BP diastolic 81–102; PULSE 76–96; RESP 16–20; TEMP 98.3–98.4; O2SAT 86–96
[2023-04-21] MEDS: ipratropium/albuterol 3ml nebule NEB SCH ×6 (04:00→23:26)
[2023-04-21 06:23] LABS: BASOPHILS # (AUTO) 0.1 X10'3 (0-0.2); BASOPHILS % (AUTO) 0.4 % (0-1); EOSINOPHILS % (AUTO) 0 % (0-6); HEMATOCRIT 38.4 % (35.0-45.0); HEMOGLOBIN 12.5 g/dl (12.0-16.0); LYMPHOCYTES # (AUTO) 0.5 X10'3 (1.1-4.8); MEAN CORPUSCULAR HEMOGLOBIN 31.7 PG (27.0-31.0); MEAN CORPUSCULAR HGB CONC 32.6 g/dL (33.0-36.5); MEAN CORPUSCULAR VOLUME 97.2 FL (78-98); MEAN PLATELET VOLUME 8.2 FL (7.4-10.4); MONOCYTES # (AUTO) 0.3 X10'3 (0-0.9); MONOCYTES % (AUTO) 2.1 % (2-12); NEUTROPHILS # (AUTO) 15.5 X10'3 (1.8-7.7); NEUTROPHILS % (AUTO) 94.5 % (42-75); PLATELET COUNT 213 X10'3 (140-440); RED BLOOD COUNT 3.96 X10'6 (4.20-5.60); RED CELL DISTRIBUTION WIDTH 14.3 % (11.5-14.5); WHITE BLOOD COUNT 16.4 X10'3 (4.5-11.0)
[2023-04-21 06:44] LABS: ALBUMIN 3.3 G/DL (3.4-5.0); ANION GAP 4 (8-16); BLOOD UREA NITROGEN 37 MG/DL (7-18); BUN/CREATININE RATIO 34.9 (10.0-20.0); CALCIUM 9.1 MG/DL (8.5-10.1); CHLORIDE 98 MMOL/L (99-107); CREATININE 1.06 MG/DL (0.40-0.90); GLUCOSE 210 MG/DL (70-104); POTASSIUM 4.6 MMOL/L (3.5-5.1); SODIUM 140 MMOL/L (135-145); TOTAL CARBON DIOXIDE 37.8 MMOL/L (24-32); eCRCL 51 ML/MIN; eGFR 53 ML/MIN
[2023-04-21] MEDS: docusate sod 100mg capsule PO SCH ×2 (08:00→20:00)
[2023-04-21] MEDS: K and/or MAG REPLACEMENT MC SCH ×2 (08:00→20:00)
[2023-04-21] MEDS: atorvastatin 20mg tablet PO SCH (09:00)
[2023-04-21] MEDS: methylPREDNISolone sod succ 125mg/2ml vial IV SCH ×2 (09:00→21:23)
[2023-04-21] MEDS: ESCITALOPRAM 10 mg tablet 10 MG TABLET PO SCH (09:00)
[2023-04-21] MEDS: CefTRIAXone/D5W-Rocephin 1gm 50 ML IV SCH (09:00)
[2023-04-21] MEDS: furosemide 10 MG/1 ML 10ml inj IV SCH ×2 (09:01→21:25)
[2023-04-21] MEDS: lisinopril 20mg tablet PO SCH (09:05)
[2023-04-21] MEDS: carVEDilol 12.5mg tablet PO SCH ×2 (09:05→21:23)
[2023-04-21] MEDS: azithromycin/NS 500mg/250ml 250 ML IV SCH (09:13)
[2023-04-21] MEDS: nicotine 21mg patch - 24 hr TD SCH (09:14)
[2023-04-21] MEDS ORDERED: LORazepam 1 MG tablet PO ONE (17:15)
[2023-04-21] MEDS: insulin Lispro (HumaLOG) vial - multi-dose SQ SCH (20:07)
[2023-04-21] MEDS: insulin glargine (Lantus) pen - multi-dose SQ SCH (22:38)
[2023-04-22] VITALS (9 sets, daily range): BP systolic 154–164; BP diastolic 86–92; PULSE 71–76; RESP 16–19; TEMP 96.3–97; O2SAT 92–98
[2023-04-22] MEDS: ipratropium/albuterol 3ml nebule NEB SCH ×3 (03:00→10:43)
[2023-04-22 05:53] LABS: BASOPHILS % (AUTO) 0.1 % (0-1); EOSINOPHILS % (AUTO) 0 % (0-6); HEMATOCRIT 40.8 % (35.0-45.0); HEMOGLOBIN 13.2 g/dl (12.0-16.0); LYMPHOCYTES # (AUTO) 0.5 X10'3 (1.1-4.8); LYMPHOCYTES % (AUTO) 2.9 % (21-51); MEAN CORPUSCULAR HEMOGLOBIN 31.7 PG (27.0-31.0); MEAN CORPUSCULAR HGB CONC 32.3 g/dL (33.0-36.5); MEAN CORPUSCULAR VOLUME 98.2 FL (78-98); MEAN PLATELET VOLUME 7.9 FL (7.4-10.4); MONOCYTES # (AUTO) 0.4 X10'3 (0-0.9); MONOCYTES % (AUTO) 2.1 % (2-12); NEUTROPHILS # (AUTO) 16.9 X10'3 (1.8-7.7); NEUTROPHILS % (AUTO) 94.9 % (42-75); PLATELET COUNT 211 X10'3 (140-440); RED BLOOD COUNT 4.16 X10'6 (4.20-5.60); RED CELL DISTRIBUTION WIDTH 14.6 % (11.5-14.5); WHITE BLOOD COUNT 17.9 X10'3 (4.5-11.0)
[2023-04-22 06:03] LABS: ALBUMIN 3.3 G/DL (3.4-5.0); ANION GAP 4 (8-16); BLOOD UREA NITROGEN 49 MG/DL (7-18); CALCIUM 9.2 MG/DL (8.5-10.1); CHLORIDE 101 MMOL/L (99-107); CREATININE 1.02 MG/DL (0.40-0.90); GLUCOSE 188 MG/DL (70-104); POTASSIUM 4.7 MMOL/L (3.5-5.1); SODIUM 138 MMOL/L (135-145); TOTAL CARBON DIOXIDE 33.2 MMOL/L (24-32); eCRCL 53 ML/MIN; eGFR 56 ML/MIN
[2023-04-22] MEDS: docusate sod 100mg capsule PO SCH (08:00)
[2023-04-22] MEDS: K and/or MAG REPLACEMENT MC SCH (08:00)
[2023-04-22] MEDS ORDERED: methylPREDNISolone sod succ 125mg/2ml vial IV SCH (08:00)
[2023-04-22] MEDS: CefTRIAXone/D5W-Rocephin 1gm 50 ML IV SCH (08:31)
[2023-04-22] MEDS: lisinopril 20mg tablet PO SCH (08:31)
[2023-04-22] MEDS: furosemide 10 MG/1 ML 10ml inj IV SCH (08:32)
[2023-04-22] MEDS: carVEDilol 12.5mg tablet PO SCH (08:32)
[2023-04-22] MEDS: atorvastatin 20mg tablet PO SCH (08:32)
[2023-04-22] MEDS: ESCITALOPRAM 10 mg tablet 10 MG TABLET PO SCH (08:32)
[2023-04-22] MEDS: nicotine 21mg patch - 24 hr TD SCH (08:33)
[2023-04-22] MEDS: insulin Lispro (HumaLOG) vial - multi-dose SQ SCH (08:53)
[2023-04-22] MEDS ORDERED: NICO-687 TD (10:41)
[2023-04-22] MEDS ORDERED: CEFD300C3 PO (10:41)
[2023-04-22] MEDS ORDERED: PRED10TA23 PO (10:41)
== END 2023-04-22 15:50 | disposition home or self-care (01) | DRG 139 ==
LOC: ER 00:01 → ED HOLD 03:21 → ORTHO 4S 21:16
PROVIDERS: ADMIT Family Medicine; ATTEND Family Medicine
DX: J18.9 Pneumonia, unspecified organism (principal); J96.21 Acute and chronic respiratory failure with hypoxia; I50.33 Acute on chronic diastolic (congestive) heart failure; J44.0 Chronic obstructive pulmonary disease with (acute) lower respiratory infection; I11.0 Hypertensive heart disease with heart failure; Z20.822 Contact with and (suspected) exposure to COVID-19; J44.1 Chronic obstructive pulmonary disease with (acute) exacerbation; F17.290 Nicotine dependence, other tobacco product, uncomplicated; E78.5 Hyperlipidemia, unspecified; E11.9 Type 2 diabetes mellitus without complications; Z85.41 Personal history of malignant neoplasm of cervix uteri; Z85.118 Personal history of other malignant neoplasm of bronchus and lung; Z59.00 Homelessness unspecified; Z79.899 Other long term (current) drug therapy; Z90.49 Acquired absence of other specified parts of digestive tract; Z71.6 Tobacco abuse counseling
CPT/HCPCS: 36415; 36600; 71045; 80048; 80053; 80061; 81003; 82803; 82948; 83036; 83605; 83735; 83880; 84132; 84145; 84484; 85018; 85025; 85610; 85730; 87040; 87081; 87502; 87503; 87634; 87811; 93005; 93306; 94640; 94760; 99285; A4615; A7015; G0378; J0456; J0696; J1815; J1940; J2930; J3475

== ENCOUNTER 2023-07-30 20:15 | Inpatient (IN) | payer MEDICAID ==
[~2023-07-30] VITALS: Ht 162.6 cm; Wt 84.8 kg
[~2023-07-30 20:15] MED LIST changes: +LACT1CAP26 PO; -LACT1CAP74 PO; -PRED20TA PO
[2023-07-30 20:59] LABS: BASOPHILS % (AUTO) 0.2 % (0-1); EOSINOPHILS # (AUTO) 0.2 X10'3 (0-0.9); EOSINOPHILS % (AUTO) 1.4 % (0-6); HEMATOCRIT 32.9 % (35.0-45.0); HEMOGLOBIN 10.8 g/dl (12.0-16.0); LYMPHOCYTES % (AUTO) 8.7 % (21-51); MEAN CORPUSCULAR HGB CONC 32.7 g/dL (33.0-36.5); MEAN CORPUSCULAR VOLUME 100.9 FL (78-98); MEAN PLATELET VOLUME 8.3 FL (7.4-10.4); MONOCYTES # (AUTO) 0.7 X10'3 (0-0.9); MONOCYTES % (AUTO) 6.2 % (2-12); NEUTROPHILS # (AUTO) 9.4 X10'3 (1.8-7.7); NEUTROPHILS % (AUTO) 83.5 % (42-75); PLATELET COUNT 229 X10'3 (140-440); RED BLOOD COUNT 3.26 X10'6 (4.20-5.60); RED CELL DISTRIBUTION WIDTH 14.6 % (11.5-14.5); WHITE BLOOD COUNT 11.3 X10'3 (4.5-11.0)
[2023-07-30 21:12] LABS: ALBUMIN 3.2 G/DL (3.4-5.0); ANION GAP 5 (8-16); BLOOD UREA NITROGEN 73 MG/DL (7-18); BUN/CREATININE RATIO 38.8 (10.0-20.0); CALCIUM 8.4 MG/DL (8.5-10.1); CHLORIDE 104 MMOL/L (99-107); CREATININE 1.88 MG/DL (0.40-0.90); GLUCOSE 165 MG/DL (70-104); POTASSIUM 5.8 MMOL/L (3.5-5.1); PRO BRAIN NATRIURETIC PEPTIDE 1385 PG/ML (0-125); SODIUM 140 MMOL/L (135-145); TOTAL CARBON DIOXIDE 31.2 MMOL/L (24-32); eCRCL 29 ML/MIN; eGFR 28 ML/MIN
[2023-07-30] MEDS: ipratropium/albuterol 3ml nebule NEB ONE (23:31)
[2023-07-30 23:34] VITALS: PULSE 81; RESP 20; O2SAT 97
[2023-07-30 23:42] VITALS: PULSE 81; RESP 18; O2SAT 99
[2023-07-31] VITALS (13 sets, daily range): BP systolic 106–122; BP diastolic 44–59; PULSE 81–91; RESP 16–20; TEMP 97.2–97.6; O2SAT 93–99
[2023-07-31] MEDS: normal saline 1000ML IV soln IVB ONE (00:34)
[2023-07-31] MEDS ORDERED: ondansetron/PF 4mg/2ml inj IV PRN (05:05)
[2023-07-31] MEDS ORDERED: magnesium 2GM in 50ml NS 50 ML IV PRN (05:05)
[2023-07-31] MEDS ORDERED: magnesium hydroxide 30ml (MOM) UD suspension PO PRN (05:05)
[2023-07-31] MEDS ORDERED: potassium Cl 40MEQ/1/2NS 520ml 520 ML IV PRN (05:05)
[2023-07-31] MEDS ORDERED: acetaminophen 325mg tablet PO PRN (05:05)
[2023-07-31] MEDS ORDERED: magnesium Cl slow-release 64mg tablet PO PRN (05:05)
[2023-07-31] MEDS ORDERED: potassium Cl 20 mEq SR tablet PO PRN ×2 (05:05)
[2023-07-31] MEDS ORDERED: magnesium 4gm in 100ml NS 100 ML IV PRN (05:05)
[2023-07-31] MEDS ORDERED: mag hydrox/Alum hydrox/simeth 30ml oral suspension PO PRN (05:05)
[2023-07-31] MEDS ORDERED: albuterol 2.5 MG/3 ML nebule NEB PRN (05:20)
[2023-07-31] MEDS ORDERED: glucagon, human recombinant 1mg kit SUBCUT PRN (05:35)
[2023-07-31] MEDS ORDERED: dextrose 50%-water 50ml dispensing syringe IV PRN ×2 (05:35)
[2023-07-31] MEDS ORDERED: DEXTROSE 15 GM of carb/4 tabs (each vial/BOTTLE has 4 tablets) PO PRN ×2 (05:35)
[2023-07-31] MEDS: furosemide 10 MG/1 ML 10ml inj IV ONE (06:10)
[2023-07-31 06:16] LABS: THYROID STIMULATING HORMONE 0.98 ulU/ml (0.34-4.50)
[2023-07-31] MEDS: ipratropium/albuterol 3ml nebule NEB SCH (06:53)
[2023-07-31] MEDS: INSULIN LISPRO 100 UNIT/ML INSULN.PEN MULTI-DOSE SQ SCH (07:00)
[2023-07-31] MEDS: K and/or MAG REPLACEMENT MC SCH (08:00)
[2023-07-31] MEDS: carVEDilol 12.5mg tablet PO SCH (08:00)
[2023-07-31 09:33] LABS: BASOPHILS % (AUTO) 0.3 % (0-1); EOSINOPHILS # (AUTO) 0.2 X10'3 (0-0.9); EOSINOPHILS % (AUTO) 1.9 % (0-6); HEMATOCRIT 36.1 % (35.0-45.0); HEMOGLOBIN 11.7 g/dl (12.0-16.0); LYMPHOCYTES % (AUTO) 10.9 % (21-51); MEAN CORPUSCULAR HGB CONC 32.5 g/dL (33.0-36.5); MEAN CORPUSCULAR VOLUME 101.6 FL (78-98); MEAN PLATELET VOLUME 8.1 FL (7.4-10.4); MONOCYTES # (AUTO) 0.7 X10'3 (0-0.9); MONOCYTES % (AUTO) 7.4 % (2-12); NEUTROPHILS # (AUTO) 7.3 X10'3 (1.8-7.7); NEUTROPHILS % (AUTO) 79.5 % (42-75); PLATELET COUNT 221 X10'3 (140-440); RED BLOOD COUNT 3.55 X10'6 (4.20-5.60); RED CELL DISTRIBUTION WIDTH 14.7 % (11.5-14.5); WHITE BLOOD COUNT 9.2 X10'3 (4.5-11.0)
[2023-07-31] MEDS: azithromycin/NS 500mg/250ml 250 ML IV SCH (09:40)
[2023-07-31] MEDS: CefTRIAXone/D5W-Rocephin 1gm 50 ML IV SCH (09:40)
[2023-07-31] MEDS: nicotine 14mg patch - 24hr TD SCH (09:41)
[2023-07-31] MEDS: atorvastatin 20mg tablet PO SCH (09:41)
[2023-07-31] MEDS: furosemide 20 MG/2 ML vial IV SCH (09:41)
[2023-07-31] MEDS: ESCITALOPRAM 10 mg tablet 10 MG TABLET PO SCH (09:42)
[2023-07-31] MEDS: heparin, porcine 5000 units/ml vial SQ SCH (09:43)
[2023-07-31] MEDS: predniSONE 20 mg tablet PO SCH (09:43)
[2023-07-31 09:44] LABS: ALANINE AMINOTRANSFERASE 14 U/L (12-78); ALBUMIN 3.5 G/DL (3.4-5.0); ALBUMIN/GLOBULIN RATIO 0.9 (1.1-1.5); ALKALINE PHOSPHATASE 65 IU/L (46-116); ANION GAP 7 (8-16); ASPARTATE AMINO TRANSFERASE 5 U/L (10-37); BILIRUBIN,TOTAL 0.2 MG/DL (0.1-1.0); BLOOD UREA NITROGEN 68 MG/DL (7-18); BUN/CREATININE RATIO 45.3 (10.0-20.0); CALCIUM 9.1 MG/DL (8.5-10.1); CHLORIDE 105 MMOL/L (99-107); GLUCOSE 108 MG/DL (70-104); MAGNESIUM 1.9 MG/DL (1.5-2.4); POTASSIUM 5.2 MMOL/L (3.5-5.1); SODIUM 142 MMOL/L (135-145); TOTAL CARBON DIOXIDE 30.5 MMOL/L (24-32); TOTAL PROTEIN 7.5 G/DL (6.4-8.2); eCRCL 36 ML/MIN; eGFR 36 ML/MIN
[2023-07-31] MEDS: acetaminophen 325mg tablet PO ONE (10:54)
[2023-07-31 10:58] LABS: BILIRUBIN,URINE NEGATIVE (Neg); CLARITY,URINE CLEAR (Clear); COLOR,URINE STRAW (Yellow); GLUCOSE, URINE NEGATIVE (Neg); KETONES,URINE NEGATIVE (Neg); LEUKOCYTE ESTERASE ,URINE NEGATIVE (Neg); NITRITES, URINE NEGATIVE (Neg); OCCULT BLOOD,URINE NEGATIVE (Neg); PH,URINE 5.5 (4.8-8.0); PROTEIN,URINE NEGATIVE (Neg); UROBILINOGEN,URINE 0.2 E.U/dL (0.2-1.0)
[2023-07-31 11:04] LABS: UA COLLECTION TYPE NON-SPECIFIED
[2023-07-31 11:28] LABS: URINE AMPHETAMINE SCREEN NEGATIVE (Neg); URINE BARBITUATE SCREEN NEGATIVE (Neg); URINE BENZODIAZEPINES SCREEN NEGATIVE (Neg); URINE CANNABINOID SCREEN POSITIVE (Neg); URINE COCAINE SCREEN NEGATIVE (Neg); URINE METHADONE SCREEN NEGATIVE (Neg); URINE OPIATE SCREEN NEGATIVE (Neg); URINE PHENCYCLIDINE SCREEN NEGATIVE (Neg)
[2023-07-31 13:42] LABS: APTT 26 SECONDS (22-32); PROTHROMBIN TIME 10.2 SECONDS (9.0-12.0)
[2023-07-31] MEDS: normal saline 1000ml 1,000 ML IV SCH (18:06)
[2023-07-31] MEDS: sodium polystyrene sulfonate 15gm/60ml oral suspension PO ONE (20:07)
[2023-07-31] MEDS: Melatonin 3mg tablet PO SCH (22:09)
[2023-08-01] VITALS (16 sets, daily range): BP systolic 91–147; BP diastolic 47–66; PULSE 79–108; RESP 14–22; TEMP 97.3–98.5; O2SAT 91–98
[2023-08-01 06:22] LABS: BASOPHILS % (AUTO) 0.3 % (0-1); EOSINOPHILS % (AUTO) 0.1 % (0-6); HEMATOCRIT 30.9 % (35.0-45.0); HEMOGLOBIN 10.3 g/dl (12.0-16.0); LYMPHOCYTES # (AUTO) 0.4 X10'3 (1.1-4.8); LYMPHOCYTES % (AUTO) 4.6 % (21-51); MEAN CORPUSCULAR HEMOGLOBIN 33.9 PG (27.0-31.0); MEAN CORPUSCULAR HGB CONC 33.4 g/dL (33.0-36.5); MEAN CORPUSCULAR VOLUME 101.4 FL (78-98); MEAN PLATELET VOLUME 8.4 FL (7.4-10.4); MONOCYTES # (AUTO) 0.2 X10'3 (0-0.9); MONOCYTES % (AUTO) 2.6 % (2-12); NEUTROPHILS # (AUTO) 8.2 X10'3 (1.8-7.7); NEUTROPHILS % (AUTO) 92.4 % (42-75); PLATELET COUNT 196 X10'3 (140-440); RED BLOOD COUNT 3.05 X10'6 (4.20-5.60); RED CELL DISTRIBUTION WIDTH 14.5 % (11.5-14.5); WHITE BLOOD COUNT 8.9 X10'3 (4.5-11.0)
[2023-08-01 07:00] LABS: ALANINE AMINOTRANSFERASE 17 U/L (12-78); ALBUMIN 3.1 G/DL (3.4-5.0); ALBUMIN/GLOBULIN RATIO 0.9 (1.1-1.5); ALKALINE PHOSPHATASE 56 IU/L (46-116); ANION GAP 8 (8-16); ASPARTATE AMINO TRANSFERASE 6 U/L (10-37); BILIRUBIN,TOTAL 0.1 MG/DL (0.1-1.0); BLOOD UREA NITROGEN 64 MG/DL (7-18); BUN/CREATININE RATIO 48.9 (10.0-20.0); CALCIUM 8.3 MG/DL (8.5-10.1); CHLORIDE 108 MMOL/L (99-107); CHOL/HDL RATIO 3.5 (0.00-4.99); CHOLESTEROL 159 MG/DL (0-200); CREATINE KINASE 44 U/L (26-192); CREATINE KINASE MB 1.9 ng/ml (0.3-3.6); CREATININE 1.31 MG/DL (0.40-0.90); GLUCOSE 120 MG/DL (70-104); HDL CHOLESTEROL 46 MG/DL (35-60); LDL CHOLESTEROL 87 MG/DL (50-100); PHOSPHORUS 4.4 MG/DL (2.3-4.5); POTASSIUM 4.4 MMOL/L (3.5-5.1); SODIUM 145 MMOL/L (135-145); TOTAL CARBON DIOXIDE 29.3 MMOL/L (24-32); TOTAL PROTEIN 6.6 G/DL (6.4-8.2); TRIGLYCERIDES 145 MG/DL (20-135); eCRCL 41 ML/MIN; eGFR 42 ML/MIN
[2023-08-01] MEDS: lisinopril 20mg tablet PO SCH (09:06)
[2023-08-01] MEDS: methylPREDNISolone sod succ 125mg/2ml vial IV SCH (13:00)
[2023-08-01] MEDS: ALPRAZolam 0.25mg tablet PO PRN (17:17)
[2023-08-01] MEDS: carVEDilol 12.5mg tablet PO SCH (20:45)
[2023-08-02 03:58] VITALS: PULSE 75; RESP 18; O2SAT 94
[2023-08-02 04:06] VITALS: PULSE 75; RESP 18
[2023-08-02 06:44] LABS: ALANINE AMINOTRANSFERASE 32 U/L (12-78); ALBUMIN/GLOBULIN RATIO 0.9 (1.1-1.5); ALKALINE PHOSPHATASE 58 IU/L (46-116); ANION GAP 8 (8-16); ASPARTATE AMINO TRANSFERASE 15 U/L (10-37); BILIRUBIN,TOTAL 0.1 MG/DL (0.1-1.0); BLOOD UREA NITROGEN 54 MG/DL (7-18); BUN/CREATININE RATIO 43.9 (10.0-20.0); CALCIUM 8.8 MG/DL (8.5-10.1); CHLORIDE 109 MMOL/L (99-107); CREATININE 1.23 MG/DL (0.40-0.90); GLUCOSE 171 MG/DL (70-104); MAGNESIUM 2.3 MG/DL (1.5-2.4); PHOSPHORUS 3.5 MG/DL (2.3-4.5); SODIUM 142 MMOL/L (135-145); TOTAL CARBON DIOXIDE 25.1 MMOL/L (24-32); TOTAL PROTEIN 6.4 G/DL (6.4-8.2); eCRCL 44 ML/MIN; eGFR 45 ML/MIN
[2023-08-02 07:19] VITALS: BP 153/70; PULSE 73; RESP 20; TEMP 97.6; O2SAT 94
[2023-08-02] MEDS: lisinopril 20mg tablet PO SCH (07:23)
[2023-08-02 10:22] VITALS: BP 135/63; PULSE 83; RESP 22; TEMP 97.7; O2SAT 93
[2023-08-02] MEDS ORDERED: LEVO-65 PO (11:16)
[2023-08-02 12:38] VITALS: PULSE 81; RESP 24; O2SAT 90
[2023-08-02 12:46] VITALS: PULSE 89; RESP 18
== END 2023-08-02 14:10 | disposition home or self-care (01) | DRG 140 ==
LOC: ER 20:16 → ED HOLD 07-31 05:09 → ORTHO 4S 07-31 14:45
PROVIDERS: ADMIT Surgery Surgical Critical Care; ATTEND Family Medicine
DX: J44.1 Chronic obstructive pulmonary disease with (acute) exacerbation (principal); J96.21 Acute and chronic respiratory failure with hypoxia; N17.9 Acute kidney failure, unspecified; I50.30 Unspecified diastolic (congestive) heart failure; F17.210 Nicotine dependence, cigarettes, uncomplicated; I11.0 Hypertensive heart disease with heart failure; E11.9 Type 2 diabetes mellitus without complications; E86.0 Dehydration; E78.5 Hyperlipidemia, unspecified; I25.10 Atherosclerotic heart disease of native coronary artery without angina pectoris; Z20.822 Contact with and (suspected) exposure to COVID-19; F15.90 Other stimulant use, unspecified, uncomplicated; Z90.49 Acquired absence of other specified parts of digestive tract; Z80.1 Family history of malignant neoplasm of trachea, bronchus and lung; Z80.8 Family history of malignant neoplasm of other organs or systems; Z59.00 Homelessness unspecified; Z87.440 Personal history of urinary (tract) infections; Z87.01 Personal history of pneumonia (recurrent)
CPT/HCPCS: 36415; 71045; 80048; 80053; 80061; 80305; 81003; 82550; 82553; 82948; 83036; 83735; 83880; 84100; 84132; 84439; 84443; 84484; 85025; 85610; 85730; 87081; 87502; 87503; 87811; 93005; 93306; 94640; 94760; G0378; J0456; J0696; J1644; J1815; J1940; J2930; J7030; J7512

== ENCOUNTER 2023-08-12 12:53 | Inpatient (IN) | payer MEDICAID ==
[~2023-08-12] VITALS: Ht 162.6 cm; Wt 84.9 kg
[2023-08-12 15:43] LABS: BASOPHILS % (AUTO) 0.4 % (0-1); EOSINOPHILS # (AUTO) 0.1 X10'3 (0-0.9); HEMATOCRIT 36.2 % (35.0-45.0); HEMOGLOBIN 11.7 g/dl (12.0-16.0); LYMPHOCYTES # (AUTO) 0.8 X10'3 (1.1-4.8); LYMPHOCYTES % (AUTO) 6.4 % (21-51); MEAN CORPUSCULAR HEMOGLOBIN 32.8 PG (27.0-31.0); MEAN CORPUSCULAR HGB CONC 32.4 g/dL (33.0-36.5); MEAN CORPUSCULAR VOLUME 101.2 FL (78-98); MEAN PLATELET VOLUME 8.4 FL (7.4-10.4); MONOCYTES # (AUTO) 0.8 X10'3 (0-0.9); MONOCYTES % (AUTO) 6.5 % (2-12); NEUTROPHILS # (AUTO) 10.3 X10'3 (1.8-7.7); NEUTROPHILS % (AUTO) 85.7 % (42-75); PLATELET COUNT 261 X10'3 (140-440); RED BLOOD COUNT 3.57 X10'6 (4.20-5.60); RED CELL DISTRIBUTION WIDTH 14.6 % (11.5-14.5)
[2023-08-12 16:05] LABS: ALBUMIN 3.8 G/DL (3.4-5.0); ANION GAP 5 (8-16); BLOOD UREA NITROGEN 77 MG/DL (7-18); BUN/CREATININE RATIO 46.7 (10.0-20.0); CALCIUM 9.7 MG/DL (8.5-10.1); CHLORIDE 106 MMOL/L (99-107); CREATININE 1.65 MG/DL (0.40-0.90); GLUCOSE 96 MG/DL (70-104); POTASSIUM 5.9 MMOL/L (3.5-5.1); PRO BRAIN NATRIURETIC PEPTIDE 268 PG/ML (0-125); SODIUM 143 MMOL/L (135-145); TOTAL CARBON DIOXIDE 32.4 MMOL/L (24-32); eCRCL 32 ML/MIN; eGFR 32 ML/MIN
[2023-08-12] MEDS ORDERED: azithromycin/NS 500mg/250ml 250 ML IV ONE (18:30)
[2023-08-12] MEDS: ipratropium/albuterol 3ml nebule NEB PRN (18:52)
[2023-08-12 18:55] VITALS: PULSE 79; RESP 16; O2SAT 94
[2023-08-12 19:02] VITALS: PULSE 77; RESP 18; O2SAT 98
[2023-08-12] MEDS: normal saline 1000ml 1,000 ML IV ONE (19:29)
[2023-08-12] MEDS: methylPREDNISolone sod succ 125mg/2ml vial IV ONE (19:30)
[2023-08-12] MEDS: CefTRIAXone 2gm/D5W 50ml BAG 50 ML IV ONE (19:32)
[2023-08-12] MEDS ORDERED: magnesium 2GM in 50ml NS 50 ML IV PRN (19:50)
[2023-08-12] MEDS ORDERED: acetaminophen 325mg tablet PO PRN (19:50)
[2023-08-12] MEDS ORDERED: mag hydrox/Alum hydrox/simeth 30ml oral suspension PO PRN (19:50)
[2023-08-12] MEDS ORDERED: magnesium 4gm in 100ml NS 100 ML IV PRN (19:50)
[2023-08-12] MEDS ORDERED: ondansetron/PF 4mg/2ml inj IV PRN (19:50)
[2023-08-12] MEDS ORDERED: morphine 2 MG/ML inj. syringe IV PRN ×2 (19:50)
[2023-08-12] MEDS ORDERED: potassium Cl 40MEQ/1/2NS 520ml 520 ML IV PRN (19:50)
[2023-08-12] MEDS ORDERED: ipratropium/albuterol 3ml nebule NEB PRN (20:00)
[2023-08-12] MEDS: K and/or MAG REPLACEMENT MC SCH (20:00)
[2023-08-12] MEDS: docusate sod 100mg capsule PO SCH (20:00)
[2023-08-12] MEDS: methylPREDNISolone sod succ 125mg/2ml vial IV SCH (20:00)
[2023-08-12] MEDS: heparin, porcine 5000 units/ml vial SQ SCH (20:30)
[2023-08-12] MEDS: guaiFENesin ER 600mg tablet PO SCH (20:30)
[2023-08-12] MEDS: azithromycin/NS 500mg/250ml 250 ML IV SCH (20:47)
[2023-08-12 22:30] LABS: POTASSIUM 5.5 MMOL/L (3.5-5.1)
[2023-08-12] MEDS ORDERED: dextrose 50%-water 50ml dispensing syringe IV PRN ×2 (22:40)
[2023-08-12] MEDS ORDERED: glucagon, human recombinant 1mg kit SUBCUT PRN (22:40)
[2023-08-12] MEDS ORDERED: DEXTROSE 15 GM of carb/4 tabs (each vial/BOTTLE has 4 tablets) PO PRN ×2 (22:40)
[2023-08-12] MEDS: ipratropium 0.5 MG/2.5ML nebule IH SCH (22:45)
[2023-08-12] MEDS ORDERED: sodium polystyrene sulfonate 15gm/60ml oral suspension PO SCH (23:35)
[2023-08-12] MEDS: sodium polystyrene sulfonate 15gm/60ml oral suspension PO ONE (23:44)
[2023-08-13] VITALS (13 sets, daily range): BP systolic 128–155; BP diastolic 59–76; PULSE 82–102; RESP 16–22; TEMP 97.8–98.6; O2SAT 91–97
[2023-08-13 06:33] LABS: BASOPHILS % (AUTO) 0.1 % (0-1); EOSINOPHILS % (AUTO) 0 % (0-6); HEMATOCRIT 33.3 % (35.0-45.0); LYMPHOCYTES # (AUTO) 0.3 X10'3 (1.1-4.8); LYMPHOCYTES % (AUTO) 2.9 % (21-51); MEAN CORPUSCULAR HEMOGLOBIN 33.4 PG (27.0-31.0); MEAN CORPUSCULAR VOLUME 101.2 FL (78-98); MEAN PLATELET VOLUME 8.5 FL (7.4-10.4); MONOCYTES # (AUTO) 0.1 X10'3 (0-0.9); MONOCYTES % (AUTO) 0.6 % (2-12); NEUTROPHILS # (AUTO) 9.9 X10'3 (1.8-7.7); NEUTROPHILS % (AUTO) 96.4 % (42-75); PLATELET COUNT 242 X10'3 (140-440); RED BLOOD COUNT 3.29 X10'6 (4.20-5.60); RED CELL DISTRIBUTION WIDTH 14.3 % (11.5-14.5); WHITE BLOOD COUNT 10.3 X10'3 (4.5-11.0)
[2023-08-13] MEDS: INSULIN LISPRO 100 UNIT/ML INSULN.PEN MULTI-DOSE SQ SCH (07:00)
[2023-08-13 07:16] LABS: ALANINE AMINOTRANSFERASE 18 U/L (12-78); ALBUMIN 3.2 G/DL (3.4-5.0); ALBUMIN/GLOBULIN RATIO 0.9 (1.1-1.5); ALKALINE PHOSPHATASE 56 IU/L (46-116); ANION GAP 7 (8-16); ASPARTATE AMINO TRANSFERASE 12 U/L (10-37); BILIRUBIN,TOTAL 0.2 MG/DL (0.1-1.0); BLOOD UREA NITROGEN 60 MG/DL (7-18); BUN/CREATININE RATIO 45.5 (10.0-20.0); CALCIUM 8.8 MG/DL (8.5-10.1); CHLORIDE 109 MMOL/L (99-107); CREATININE 1.32 MG/DL (0.40-0.90); GLUCOSE 177 MG/DL (70-104); POTASSIUM 5.4 MMOL/L (3.5-5.1); SODIUM 143 MMOL/L (135-145); TOTAL CARBON DIOXIDE 27.1 MMOL/L (24-32); TOTAL PROTEIN 6.9 G/DL (6.4-8.2); eCRCL 41 ML/MIN; eGFR 41 ML/MIN
[2023-08-13] MEDS ORDERED: azithromycin/NS 500mg/250ml 250 ML IV SCH (08:00)
[2023-08-13] MEDS: lisinopril 20mg tablet PO SCH (08:31)
[2023-08-13] MEDS: calcium carbonate/vitamin D3 tablet PO SCH (08:32)
[2023-08-13] MEDS: ESCITALOPRAM 10 mg tablet 10 MG TABLET PO SCH (08:32)
[2023-08-13] MEDS: pantoprazole 40mg Tablet.DR PO SCH (08:32)
[2023-08-13] MEDS: atorvastatin 20mg tablet PO SCH (08:32)
[2023-08-13] MEDS: carVEDilol 12.5mg tablet PO SCH (08:33)
[2023-08-13] MEDS: albuterol 2.5 MG/3 ML nebule NEB SCH (09:20)
[2023-08-13 10:12] LABS: C-REACTIVE PROTEIN 0.35 MG/DL (0.0-0.5)
[2023-08-13 11:28] LABS: BILIRUBIN,URINE NEGATIVE (Neg); CLARITY,URINE SLIGHTLY CLOUDY (Clear); COLOR,URINE YELLOW (Yellow); GLUCOSE, URINE 500 mg/dl (Neg); KETONES,URINE NEGATIVE (Neg); LEUKOCYTE ESTERASE ,URINE NEGATIVE (Neg); NITRITES, URINE NEGATIVE (Neg); OCCULT BLOOD,URINE NEGATIVE (Neg); PH,URINE 5.5 (4.8-8.0); PROTEIN,URINE NEGATIVE (Neg); UROBILINOGEN,URINE 0.2 E.U/dL (0.2-1.0)
[2023-08-13 11:31] LABS: UA COLLECTION TYPE NON-SPECIFIED
[2023-08-13 11:34] LABS: BACTERIA,URINE 3+ /HPF (Neg); SQUAMOUS EPITHELIAL CELL,UR MANY /LPF (FEW)
[2023-08-13 11:36] LABS: RBC,URINE 0-2 /HPF (0-2); TRANSITIONAL EPI CELLS,URINE FEW /HPF; WBC,URINE 0-4 /HPF (0-4); YEAST FEW /HPF (NEGATIVE)
[2023-08-13 11:45] LABS: URINE AMPHETAMINE SCREEN NEGATIVE (Neg); URINE BARBITUATE SCREEN NEGATIVE (Neg); URINE BENZODIAZEPINES SCREEN NEGATIVE (Neg); URINE CANNABINOID SCREEN POSITIVE (Neg); URINE COCAINE SCREEN NEGATIVE (Neg); URINE METHADONE SCREEN NEGATIVE (Neg); URINE OPIATE SCREEN NEGATIVE (Neg); URINE PHENCYCLIDINE SCREEN NEGATIVE (Neg)
[2023-08-13 12:20] LABS: ALBUMIN 3.1 G/DL (3.4-5.0); ANION GAP 5 (8-16); BLOOD UREA NITROGEN 59 MG/DL (7-18); BUN/CREATININE RATIO 40.4 (10.0-20.0); CALCIUM 9.1 MG/DL (8.5-10.1); CHLORIDE 106 MMOL/L (99-107); CREATININE 1.46 MG/DL (0.40-0.90); GLUCOSE 250 MG/DL (70-104); POTASSIUM 5.5 MMOL/L (3.5-5.1); SODIUM 141 MMOL/L (135-145); TOTAL CARBON DIOXIDE 30.5 MMOL/L (24-32); eCRCL 37 ML/MIN; eGFR 37 ML/MIN
[2023-08-13] MEDS: LORazepam 1 MG tablet PO PRN (12:34)
[2023-08-13 18:27] LABS: ALBUMIN 3.3 G/DL (3.4-5.0); ANION GAP 5 (8-16); BLOOD UREA NITROGEN 58 MG/DL (7-18); BUN/CREATININE RATIO 33.5 (10.0-20.0); CALCIUM 9.1 MG/DL (8.5-10.1); CHLORIDE 106 MMOL/L (99-107); CREATININE 1.73 MG/DL (0.40-0.90); GLUCOSE 248 MG/DL (70-104); POTASSIUM 5.1 MMOL/L (3.5-5.1); SODIUM 139 MMOL/L (135-145); TOTAL CARBON DIOXIDE 27.8 MMOL/L (24-32); eCRCL 31 ML/MIN; eGFR 30 ML/MIN
[2023-08-13] MEDS: sodium polystyrene sulfonate 15gm/60ml oral suspension PO ONE (19:27)
[2023-08-13] MEDS: normal saline 1000ml 1,000 ML IV SCH (19:28)
[2023-08-13] MEDS: azithromycin/NS 500mg/250ml 250 ML IV SCH (20:04)
[2023-08-13] MEDS: Melatonin 3mg tablet PO SCH (20:10)
[2023-08-13] MEDS: CefTRIAXone 2gm/D5W 50ml BAG 50 ML IV SCH (21:59)
[2023-08-13] MEDS ORDERED: Melatonin 3mg tablet PO PRN (23:45)
[2023-08-14] VITALS (8 sets, daily range): BP systolic 142–160; BP diastolic 58–78; PULSE 76–91; RESP 18–20; TEMP 98.1; O2SAT 91–93
[2023-08-14 00:44] LABS: ALBUMIN 2.9 G/DL (3.4-5.0); ANION GAP 8 (8-16); BLOOD UREA NITROGEN 56 MG/DL (7-18); BUN/CREATININE RATIO 33.3 (10.0-20.0); CALCIUM 8.5 MG/DL (8.5-10.1); CHLORIDE 107 MMOL/L (99-107); CREATININE 1.68 MG/DL (0.40-0.90); GLUCOSE 244 MG/DL (70-104); POTASSIUM 5.1 MMOL/L (3.5-5.1); SODIUM 142 MMOL/L (135-145); TOTAL CARBON DIOXIDE 26.9 MMOL/L (24-32); eCRCL 32 ML/MIN; eGFR 31 ML/MIN
[2023-08-14 07:45] LABS: BASOPHILS # (AUTO) 0.1 X10'3 (0-0.2); BASOPHILS % (AUTO) 0.5 % (0-1); EOSINOPHILS % (AUTO) 0 % (0-6); HEMOGLOBIN 10.3 g/dl (12.0-16.0); LYMPHOCYTES # (AUTO) 0.3 X10'3 (1.1-4.8); LYMPHOCYTES % (AUTO) 1.4 % (21-51); MEAN CORPUSCULAR HEMOGLOBIN 32.9 PG (27.0-31.0); MEAN CORPUSCULAR HGB CONC 32.3 g/dL (33.0-36.5); MEAN CORPUSCULAR VOLUME 101.8 FL (78-98); MEAN PLATELET VOLUME 8.8 FL (7.4-10.4); MONOCYTES # (AUTO) 0.9 X10'3 (0-0.9); MONOCYTES % (AUTO) 4.5 % (2-12); NEUTROPHILS # (AUTO) 18.6 X10'3 (1.8-7.7); NEUTROPHILS % (AUTO) 93.6 % (42-75); PLATELET COUNT 257 X10'3 (140-440); RED BLOOD COUNT 3.14 X10'6 (4.20-5.60); RED CELL DISTRIBUTION WIDTH 14.6 % (11.5-14.5); WHITE BLOOD COUNT 19.9 X10'3 (4.5-11.0)
[2023-08-14] MEDS: sodium polystyrene sulfonate 15gm/60ml oral suspension PO ONE (07:55)
[2023-08-14 07:57] LABS: ALANINE AMINOTRANSFERASE 16 U/L (12-78); ALBUMIN 2.9 G/DL (3.4-5.0); ALBUMIN/GLOBULIN RATIO 0.9 (1.1-1.5); ALKALINE PHOSPHATASE 51 IU/L (46-116); ANION GAP 6 (8-16); ASPARTATE AMINO TRANSFERASE 4 U/L (10-37); BILIRUBIN,TOTAL 0.2 MG/DL (0.1-1.0); BLOOD UREA NITROGEN 51 MG/DL (7-18); BUN/CREATININE RATIO 36.2 (10.0-20.0); CALCIUM 8.6 MG/DL (8.5-10.1); CHLORIDE 110 MMOL/L (99-107); CHOLESTEROL 136 MG/DL (0-200); CREATININE 1.41 MG/DL (0.40-0.90); GLUCOSE 166 MG/DL (70-104); HDL CHOLESTEROL 45 MG/DL (35-60); LDL CHOLESTEROL 65 MG/DL (50-100); MAGNESIUM 1.9 MG/DL (1.5-2.4); POTASSIUM 4.2 MMOL/L (3.5-5.1); SODIUM 145 MMOL/L (135-145); TOTAL CARBON DIOXIDE 28.8 MMOL/L (24-32); TOTAL PROTEIN 6.3 G/DL (6.4-8.2); TRIGLYCERIDES 90 MG/DL (20-135); eCRCL 38 ML/MIN; eGFR 38 ML/MIN
[2023-08-14] MEDS: azithromycin 250mg tablet PO ONE (13:00)
[2023-08-14 13:02] LABS: ANION GAP 8 (8-16); BLOOD UREA NITROGEN 47 MG/DL (7-18); BUN/CREATININE RATIO 36.4 (10.0-20.0); CALCIUM 8.5 MG/DL (8.5-10.1); CHLORIDE 105 MMOL/L (99-107); CREATININE 1.29 MG/DL (0.40-0.90); GLUCOSE 192 MG/DL (70-104); POTASSIUM 3.7 MMOL/L (3.5-5.1); SODIUM 142 MMOL/L (135-145); TOTAL CARBON DIOXIDE 28.9 MMOL/L (24-32); eCRCL 42 ML/MIN; eGFR 43 ML/MIN
[2023-08-14] MEDS ORDERED: PRED10TA23 PO (13:15)
[2023-08-14] MEDS ORDERED: PANT40TA54 PO (13:15)
[2023-08-14] MEDS ORDERED: CEFD300C3 PO (13:15)
[2023-08-14] MEDS ORDERED: GUAI600T45 PO (13:15)
== END 2023-08-14 16:35 | disposition home or self-care (01) | DRG 140 ==
LOC: ER 12:54 → UNDOADMIN 19:49 → ED HOLD 19:49 → EDBEDREQ 08-13 03:23 → ORTHO 4S 08-13 03:52 → ED HOLD 08-13 03:52
PROVIDERS: ADMIT Surgery Surgical Critical Care; ATTEND Family Medicine
DX: J44.1 Chronic obstructive pulmonary disease with (acute) exacerbation (principal); N17.0 Acute kidney failure with tubular necrosis; J96.01 Acute respiratory failure with hypoxia; J18.9 Pneumonia, unspecified organism; I13.0 Hypertensive heart and chronic kidney disease with heart failure and stage 1 through stage 4 chronic kidney disease, or unspecified chronic kidney disease; J96.02 Acute respiratory failure with hypercapnia; E11.22 Type 2 diabetes mellitus with diabetic chronic kidney disease; I50.32 Chronic diastolic (congestive) heart failure; D50.9 Iron deficiency anemia, unspecified; I25.10 Atherosclerotic heart disease of native coronary artery without angina pectoris; Z20.822 Contact with and (suspected) exposure to COVID-19; E87.5 Hyperkalemia; J44.0 Chronic obstructive pulmonary disease with (acute) lower respiratory infection; N18.30 Chronic kidney disease, stage 3 unspecified; F41.9 Anxiety disorder, unspecified; T38.0X5A Adverse effect of glucocorticoids and synthetic analogues, initial encounter; Y92.89 Other specified places as the place of occurrence of the external cause; Z85.41 Personal history of malignant neoplasm of cervix uteri; Z79.899 Other long term (current) drug therapy; Z79.84 Long term (current) use of oral hypoglycemic drugs; Z85.118 Personal history of other malignant neoplasm of bronchus and lung; Z59.00 Homelessness unspecified
CPT/HCPCS: 36415; 71045; 80048; 80053; 80061; 80305; 81001; 82948; 83036; 83605; 83735; 83880; 84132; 84145; 84484; 85025; 86140; 87040; 87081; 87502; 87503; 87811; 93005; 94640; 94760; 97116; 97161; 97530; 99285; A4615; G0378; J0456; J0696; J1644; J2919; J7030

== ENCOUNTER 2023-09-08 16:03 | Emergency (ER) | payer MEDICAID ==
[~2023-09-08] VITALS: Ht 162.6 cm; Wt 81.8 kg
[~2023-09-08 16:03] MED LIST changes: +GUAI600T45 PO; +PANT40TA54 PO
[2023-09-08 16:05] VITALS: TEMP 98.5
[2023-09-08 16:37] LABS: BASOPHILS % (AUTO) 0.4 % (0-1); EOSINOPHILS % (AUTO) 0.6 % (0-6); HEMATOCRIT 35.1 % (35.0-45.0); HEMOGLOBIN 11.6 g/dl (12.0-16.0); LYMPHOCYTES # (AUTO) 0.6 X10'3 (1.1-4.8); LYMPHOCYTES % (AUTO) 7.2 % (21-51); MEAN CORPUSCULAR HEMOGLOBIN 33.3 PG (27.0-31.0); MEAN CORPUSCULAR VOLUME 100.8 FL (78-98); MONOCYTES # (AUTO) 0.4 X10'3 (0-0.9); MONOCYTES % (AUTO) 5.1 % (2-12); NEUTROPHILS # (AUTO) 7.4 X10'3 (1.8-7.7); NEUTROPHILS % (AUTO) 86.7 % (42-75); PLATELET COUNT 273 X10'3 (140-440); RED BLOOD COUNT 3.48 X10'6 (4.20-5.60); WHITE BLOOD COUNT 8.5 X10'3 (4.5-11.0)
[2023-09-08 16:50] VITALS: RESP 18
[2023-09-08 16:54] LABS: ALBUMIN 3.5 G/DL (3.4-5.0); ANION GAP 12 (8-16); BLOOD UREA NITROGEN 41 MG/DL (7-18); BUN/CREATININE RATIO 21.8 (10.0-20.0); CALCIUM 9.4 MG/DL (8.5-10.1); CHLORIDE 106 MMOL/L (99-107); CREATININE 1.88 MG/DL (0.40-0.90); GLUCOSE 228 MG/DL (70-104); POTASSIUM 4.7 MMOL/L (3.5-5.1); PRO BRAIN NATRIURETIC PEPTIDE 798 PG/ML (0-125); SODIUM 142 MMOL/L (135-145); TOTAL CARBON DIOXIDE 23.8 MMOL/L (24-32); eCRCL 29 ML/MIN; eGFR 28 ML/MIN
[2023-09-08] MEDS ORDERED: METH4TAB81 PO (17:04)
[2023-09-08] MEDS ORDERED: AZIT500T18 PO (17:04)
[2023-09-08 17:11] VITALS: BP 126/63; PULSE 82; O2SAT 97
== END 2023-09-08 18:15 | disposition home or self-care (01) ==
LOC: ER 16:03
DX: J44.9 Chronic obstructive pulmonary disease, unspecified (principal); J40 Bronchitis, not specified as acute or chronic; I11.0 Hypertensive heart disease with heart failure; I50.9 Heart failure, unspecified; E11.9 Type 2 diabetes mellitus without complications; F12.90 Cannabis use, unspecified, uncomplicated; F15.90 Other stimulant use, unspecified, uncomplicated; Z79.899 Other long term (current) drug therapy; Z79.84 Long term (current) use of oral hypoglycemic drugs
CPT/HCPCS: 36415; 71045; 80048; 83880; 84484; 85025; 93005; 99285

== ENCOUNTER 2023-10-29 15:26 | Outpatient (CLI) | payer MEDICAID ==
[~2023-10-29 15:26] MED LIST changes: +METH4TAB81 PO
[2023-10-29 16:07] VITALS: PULSE 68; RESP 16; O2SAT 97
== END 2023-10-29 23:59 | disposition home or self-care (01) ==
LOC: RT 15:26
PROVIDERS: ATTEND Family Medicine
DX: J44.9 Chronic obstructive pulmonary disease, unspecified (principal)
CPT/HCPCS: 94010; 94760